=== PATIENT | male | born 1960 | race Caucasian/White ===

== ENCOUNTER 2017-12-20 19:56 | Emergency (ER) | payer OTHER, SELFPAY ==
[2017-12-20 19:57] VITALS: BP 158/98; PULSE 75; RESP 26; TEMP 36.6; O2SAT 94; BMI 32.0
--- NOTE | 2017-12-20 20:05 | EKG12_ITS ---
Test Reason : CP Blood Pressure : / mmHG Vent. Rate : 069 BPM Atrial Rate : 069 BPM P-R Int : 174 ms QRS Dur : 096 ms QT Int : 406 ms P-R-T Axes : 033 021 016 degrees QTc Int : 435 ms Normal sinus rhythm Normal ECG Confirmed by MARCELLO TELLO ([id number]), story editor JESSY DAVIS ([id number]) on 12/24/2017 1:43:01 PM Referred By: ANU Confirmed By:MARCELLO TELLO
[2017-12-20 20:06] VITALS: O2SAT 98
--- NOTE | 2017-12-20 20:10 | RAD_ITS ---
STUDY: X-RAY CHEST REASON FOR EXAM: Male, 57 years old. Chest pain TECHNIQUE: AP portable COMPARISON: November 08, 2007 FINDINGS: There is diminished inspiratory effort and mild prominence of the markings in the lower lobes. There is no demonstrated pleural abnormality. Heart is upper normal size. Normal mediastinum and diana. Normal visualized pulmonary arteries. Normal visualized aortic arch and descending thoracic aorta. Normal visualized thoracic spine. Normal visualized ribs, clavicles, and shoulders. There is no demonstrated abnormality of the visualized soft tissue structures of the upper abdomen. RAD/Chest 1 View (Portable) IMPRESSION: Diminished inspiratory effort and mild prominence of the markings in the lower lobes. No gross infiltration or pulmonary edema Electronically Signed: Jonny Whitfield MD at 20:37 EST , Service support ,
[2017-12-20 20:20] LABS: Absolute Lymphocyte Count 2.72 X10^3/ul (0.83-4.51); Absolute Neutrophil Count 5.4 X10^3/uL (2.0-7.7); Basophil# 0.05 X10^3/uL; Basophil% 0.5 % (0-1); Eosinophil# 0.29 X10^3/uL; Eosinophils% 3.1 % (0-5); Hematocrit 42.3 % (40-54); Hemoglobin 14.2 g/dl (13.0-16.5); Lymphocyte # 2.72 X10^3/ul (4.0); Lymphocyte % 29.1 % (19-41); Mean Corp Hgb Conc 33.6 g/gl (32-36); Mean Corpuscular Hgb 29.3 pg (27.0-32.0); Mean Corpuscular Volume 87.2 fL (80-94); Mean Platelet Vol. 10.2 fl (6.2-12.0); Monocyte% 9.6 % (0-10); Neutrophil # 5.37 X10^3/uL (2.7-7.7); Neutrophil % 57.6 % (47-70); Platelet Count 285 K/mm3 (150-450); RBC Distribution Width SD 41.6 fl (35.1-43.9); Red Blood Count 4.85 M/mm3 (4.6-6.2); White Blood Count 9.3 K/mm3 (4.4-11.0)
[2017-12-20 20:21] LABS: POSITIVE COUNT NO; POSITIVE DIFFERENTIAL NO; POSITIVE MORPHOLOGY NO
[2017-12-20 20:23] VITALS: O2SAT 98
[2017-12-20] MEDS: Aspirin 81 MG TAB.CHEW 324 MG PO (20:27)
--- NOTE | 2017-12-20 20:33 | CT_ITS ---
STUDY: CTA CHEST REASON FOR EXAM: Male, 57 years old. Chest pain RADIATION DOSAGE (If Supplied By Facility): CTDIvol = ( 15.98 ) mGy, DLP = ( 713.14 ) mGycm TECHNIQUE: The examination was performed with the intravenous administration of 100ML ml of Isovue 370 contrast material. Post-processing of the angiographic images was performed, with multiplanar reformation and 3D reconstruction. Individualized dose optimization techniques were used for this CT. COMPARISON: None. FINDINGS: Normal enhancement of the main pulmonary artery and right and left pulmonary arteries. Normal enhancement of the bilateral peripheral pulmonary arteries. There is no demonstrated pulmonary embolism. Normal thoracic aorta and visualized great vessels. There is no demonstrated aortic dissection. The heart appears mildly enlarged and there is coronary artery calcification. Normal mediastinum. Normal hilar regions. Normal visualized trachea and bronchi. The lungs are well expanded. There is mild interstitial thickening. There is minor atelectasis within the dependent portion of the lungs. There is no focal infiltration or pulmonary nodule.. Normal pleura. Normal chest wall structures. Dorsal spine demonstrates moderate spondylosis Postop changes status post cholecystectomy CT/CTA Chest W/WO Contrast IMPRESSION: Minor interstitial thickening and atelectasis within the dependent portion of the lungs. No evidence for pulmonary embolus Electronically Signed: Jonny Whitfield MD at 21:27 EST , Service support ,
[2017-12-20 20:37] LABS: BUN 15 mg/dL (7-18); Glucose 89 mg/dL (74-106)
[2017-12-20 20:38] LABS: Anion Gap 8 (5-15); BUN/Creat Ratio 18.8 RATIO (10-20); Chloride 105 mmol/L (98-107); EST Glomerular Filtration Rate 106 mL/min (>60); Est Glom Filt Rate - Afr Amer 129 mL/min (>60); Potassium 3.9 mmol/L (3.5-5.1); Sodium Level 140 mmol/L (136-145)
[2017-12-20 21:05] VITALS: BP 143/86; PULSE 60; RESP 20; O2SAT 99
--- NOTE | 2017-12-20 21:06 | ED.VISSUMM ---
- ER Visit Summary Date of Service: 12/20/17 Chief Complaint: [] Burning chest pain into his back History of Present Illness: The patient is a 57 M [] he reports that this morning he began having burning chest pain to his back and left shoulder it persisted he came in for evaluation by he has had no orthopnea PND no diaphoresis is able to eat and drink without difficulty he does not have history of NH PE or DVT he reports 10 years ago he required admission for chest pain had a cardiac cath at [facility] that showed no signs of CAD, this is the first significant episode of chest pain he has had since then he indicates otherwise he is healthy he has some nonspecific stomach elements but otherwise he is very healthy his review of systems are negative is resting cupping the bed no distress Physical Examination: [] His vitals are within normal range heads normal lungs clear heart tones normal abdomen soft nontender upper lower extremities unremarkable pulses symmetric bilaterally the back is unremarkable lower extremities show no sinus clubbing or edema or signs of DVT Test Results: [] Emergency Department Course and Treatment: [] EKG showed a sinus rhythm nothing acute given his complaints screening labs CTA The patient's labs CTA are all generally unremarkable see those reports no signs of PE or dissection reevaluation is resting cupping the bed he has no complaints I discussed admission with him for further evaluation of the chest pain given his age his complaints he understand the risk of unspecified cardiac disease or other conditions and sudden however he is awake alert has capacity and has refused admission stating prefers outpatient management, he was able to explain my concerns in his own words back to me with a read back and again he has capacity to make this decision family is in the room with him he does agree to take 2 baby aspirin a day follow-up with his doctors tomorrow return for change in symptoms Treatment Plan: [] Disposition: [] Home stable admission Impression: [] Pain etiology unclear resolved This note was generated with [employer] dictation software. It may contain incorrect words, spelling, and punctuation that were not noted in review of the chart prior to signing ED Disposition - Plan for ED Patient: Chief Complaint: Chest Pain Referrals: Kike Aguiar [Primary Care Provider] -
--- NOTE | 2017-12-20 22:07 | ED.DEP ---
ED Disposition - Plan for ED Patient: Chief Complaint: Chest Pain Instructions: ED Chest Pain Atypical Unkn Cause Referrals: Kike Aguiar [Primary Care Provider] -
[2017-12-20 22:32] VITALS: BP 133/79; PULSE 63; RESP 14; O2SAT 98
[2017-12-20 22:59] VITALS: BP 133/79; PULSE 62; RESP 16; O2SAT 98
--- NOTE | 2017-12-20 23:00 | ED.RN ---
PT GIVEN WRITTEN AND VERBAL DISCHARGE INSTRUCTIONS AND VERBALIZES UNDERSTANDING. PT IV D/C AND COVERED WITH 2X2 GAUZE DRESSING. MINIMAL BLEEDING NOTES. PT DRESSES SELF AND IS AMBULATORY HOME WITH . PT ENCOURAGED TO RETURN FOR ANY NEW OR WORSENING SX.
== END 2017-12-20 23:03 | disposition home or self-care (01) ==
PROVIDERS: Emergency Provider Emergency Medicine; Family Provider Family Medicine; PCP Family Medicine
DX: R07.89 Other chest pain (principal)
CPT/HCPCS: 71045; 71275; 80048; 84484; 85025; 93005; 96360; 99285; J7040; Q9967

== ENCOUNTER 2021-05-04 22:07 | Emergency (ER) | payer OTHER, SELFPAY ==
[2021-05-04 22:08] VITALS: BP 169/105; PULSE 73; RESP 15; TEMP 36.2; O2SAT 95; BMI 34.7
--- NOTE | 2021-05-04 22:47 | CT_ITS ---
STUDY: CT ABDOMEN AND PELVIS WITH CONTRAST REASON FOR EXAM: Male, 61 years old. abdominal pain RADIATION DOSAGE (If Supplied By Facility): CTDIvol = ( 22.61 ) mGy, DLP = ( 2208.57 ) mGycm TECHNIQUE: Transaxial images were obtained from the dome of the diaphragm to the symphysis pubis without oral contrast. IV 100mL Isovue-370 was administered. Sagittal and coronal images were reconstructed. Individualized dose optimization techniques were used for this CT. COMPARISON: None. FINDINGS: The visualized lung bases are unremarkable. The visualized portions of the heart are within normal limits. Normal liver. There are surgical clips in the gallbladder fossa consistent with a prior cholecystectomy. Normal spleen. Normal pancreas. Normal bilateral adrenal glands. Normal right kidney. Left sided peripelvic cysts, otherwise unremarkable left kidney. Normal visualized stomach. Normal small intestine. Normal colon. There is non-visualization of the appendix. In the central mesentery, there is very mild mesenteric haziness which is nonspecific. Normal abdominal aorta. Normal inferior vena cava. Normal retroperitoneum. Normal urinary bladder. Normal visualized prostate gland. Normal abdominal wall. Normal osseous structures. CT/Abdomen/Pelvis W IV Cont ONLY IMPRESSION: Status post cholecystectomy. Subtle haziness in the central mesentery, nonspecific finding. Unsure if this is related to acute findings. Status post cholecystectomy. Remainder is within normal limits. Electronically Signed: Trev Hoang DO at 0:23 EDT Tel , Service support ,
--- NOTE | 2021-05-04 22:47 | EX.ED.DYSGE1 ---
HPI History of Present Illness Chief Complaint: Abd Pain Informant: patient Narrative Narrative: 61-year-old [facility] male presents the emergency room with right-sided abdominal pain. He states that for the past 3 days he has had this pain. Originally described as more generalized but now mostly on the right middle and lower side. States that sometimes it will intensify will cause him to catch himself. He notes some associated nausea. He denies any anorexia. No change in bowel habits. No fevers. He states he has had several hernia repairs and a cholecystectomy. Pain is not worse with movement. He feels slight radiation to the right flank. He denies history of ureterolithiasis. PFSH PFSH no medical history Home Medications NK 12/20/17 [History Last Taken Unknown] Allergy/AdvReac Type Severity Reaction Status Date / Time No Known Allergies Allergy Verified 12/20/17 19:56 Surgical History H/O hernia repair History of cholecystectomy Social History (Updated 05/04/21 @ 22:[address] Rob Villagran, DO) Smoking Status: Former smoker substance use type: does not use ROS ROS ED Constitutional Constitutional ED: Denies chills or weight loss Eyes Eyes: Denies change in vision or diplopia ENT ENT ED: Denies ear pain, rhinorrhea or sore throat Cardiovascular Cardiovascular: Denies chest pain, orthopnea, palpitations or racing heartbeat Respiratory/Chest Respiratory/Chest: Denies cough, dyspnea or orthopnea Gastrointestinal Gastrointestinal: Reports abdominal pain and nausea; Denies diarrhea or vomiting Genitourinary Genitourinary ED: Denies dysuria, hematuria or urinary frequency Musculoskeletal Musculoskeletal: Denies arthralgias or myalgias Integumentary Denies abscess or rash Neurologic Neurologic: Denies headache(s) or weakness Psychiatric Psychiatric: Denies anxiety, depression, suicidal ideation or suicidal thoughts Endocrine Endocrinology: Denies polydipsia, polyphagia or polyuria Allergic/Immunologic Allergic/Immunologic ED: Denies mouth swelling, tongue swelling or urticaria EXAM Physical Exam Const Vital Signs: 05/04/21 22:08 Temperature 97.1 F L Temperature Source Temporal Pulse Rate 73 Respiratory Rate 15 Blood Pressure 169/105 H Blood Pressure Mean 126 Pulse Ox 95 Oxygen Delivery Method Room Air Positive well nourished and well developed General Appearance ED: well developed HEENT Reports normocephalic, head/scalp atraumatic and moist mucous membranes Eyes PERRL and EOMs intact bilaterally Neck no lymphadenopathy, supple and no JVD Resp normal respiratory effort and clear to auscultation bilaterally Cardio regular rate, regular rhythm and no murmurs GI Palpation: soft and tender; Negative for guarding or rebound tenderness present Back/Spine no CVA tenderness and normal ROM Extremity normal to inspection General Extremety ED: Negative for edema General Extremity: Negative for edema Neuro oriented x3 and CN's II-XII intact bilaterally Sensorium / Orientation: alert Motor Exam: strength 5/5 throughout Psych mental status grossly normal Mood & Affect: Negative for depressed or tearful Skin no rashes or lesions noted and no wounds MDM MDM MDM Narrative Medical decision making narrative: Blood work was normal white count 9.3. Urinalysis normal. CT the abdomen pelvis demonstrated some nonspecific haziness in the mesentery. No obvious cause for the patient's pain. Patient received Toradol Zofran. At this point I think the patient is safe for discharge. He was given return instructions and he notes understanding Lab Data Attestation: I reviewed the patient's lab results. Labs: Laboratory Results - last 24 hr 05/04/21 05/04/21 05/05/21 23:08 23:08 00:10 WBC 9.3 RBC 4.48 L Hgb 13.1 Hct 39.5 L MCV 88.2 MCH 29.2 MCHC 33.2 RDW Std Deviation 41.7 RDW Coeff of Antonio 12.9 Plt Count 293 MPV 10.4 Immature Gran % (Auto) 0.200 Neut % (Auto) 67.7 Lymph % (Auto) 18.9 L [place] % (Auto) 9.3 Eos % (Auto) 2.9 Baso % (Auto) 1.0 Absolute Neuts (auto) 6.3 Absolute Lymphs (auto) 1.75 Nucleated RBC % 0 Sodium 138 Potassium 4.0 Chloride 108 H Carbon Dioxide 25.0 Anion Gap 5 BUN 17 Creatinine 0.87 Estim Creat Clear Calc 90.29 Est GFR (MDRD) Af Amer 115 Est GFR (MDRD) Non-Af 95 BUN/Creatinine Ratio 19.5 Glucose 113 H Calcium 8.5 Total Bilirubin 0.50 AST 17 ALT 22 Alkaline Phosphatase 49 Total Protein 7.4 Albumin 3.4 Globulin 4.0 Albumin/Globulin Ratio 0.8 L Lipase 78 Urine Color Yellow Urine Clarity Clear Urine pH 7.0 Ur Specific [place] 1.005 Urine Protein Negative Urine Glucose (UA) Normal Urine Ketones Negative Urine Occult Blood Negative Urine Nitrite Negative Urine Bilirubin Negative Urine Urobilinogen Normal Ur Leukocyte Esterase Negative Urine RBC 0 SEEN Urine WBC 0 SEEN Ur Squamous Epith Cells 0 SEEN Urine Bacteria 0 SEEN Urine Mucus 0 SEEN Radiography Diagnostic Testing: Radiology Impression Abdomen/Pelvis CT 05/04/21 22:47 IMPRESSION: Status post cholecystectomy. Subtle haziness in the central mesentery, nonspecific finding. Unsure if this is related to acute findings. Status post cholecystectomy. Remainder is within normal limits. Electronically Signed: Trev Hoang DO at 0:23 EDT Tel , Service support , Discharge Plan Triage Chief Complaint: Abd Pain ED Provider: Rob Villagran Dx/Rx/DC Orders Clinical Impression: Abdominal pain Instructions: ED Abdominal Pain Excl Appendx Male Prescriptions: No Action NK RF: 0 Primary Care Provider: Kike Aguiar Referrals: Kike Aguiar MD [Primary Care Provider] - 3-5 Days if not improving Disposition Disposition: Home, Self Care
[2021-05-04] MEDS: Ondansetron 4 MG/2 ML Vial IV (23:02)
[2021-05-04] MEDS: Ketorolac 30 MG/ML Syringe IV (23:03)
[2021-05-04 23:30] LABS: Absolute Lymphocyte Count 1.75 X10^3/uL (0.83-4.51); Absolute Neutrophil Count 6.3 X10^3/uL (2.0-7.7); Basophil# 0.09 X10^3/uL; Eosinophil# 0.27 X10^3/uL; Eosinophils% 2.9 % (0-5); Hematocrit 39.5 % (40-54); Hemoglobin 13.1 g/dL (13.0-16.5); Lymphocyte # 1.75 X10^3/ul (0.83-4.51); Lymphocyte % 18.9 % (19-41); Mean Corp Hgb Conc 33.2 g/dL (32-36); Mean Corpuscular Hgb 29.2 pg (27.0-32.0); Mean Corpuscular Volume 88.2 fL (80-94); Mean Platelet Vol. 10.4 fl (6.2-12.0); Monocyte# 0.86 X10^3/uL; Monocyte% 9.3 % (0-10); NRBC Flagged by Analyzer 0 % (0-5); Neutrophil # 6.26 X10^3/uL (2.7-7.7); Neutrophil % 67.7 % (47-70); Platelet Count 293 K/mm3 (150-450); RBC Distribution Width CV 12.9 % (11.6-14.6); RBC Distribution Width SD 41.7 fl (35.1-43.9); Red Blood Count 4.48 M/mm3 (4.6-6.2); White Blood Count 9.3 K/mm3 (4.4-11.0)
[2021-05-04 23:41] LABS: ALB/GLOB Ratio 0.8 RATIO (0.9-2.4); AST(SGOT) 17 U/L (15-37); Alanine Aminotransfer ALT/SGPT 22 U/L (16-61); Albumin, Serum 3.4 g/dL (3.2-5.0); Alkaline Phosphatase 49 U/L (45-117); Anion Gap 5 (5-15); BUN 17 mg/dL (7-18); BUN/Creat Ratio 19.5 RATIO (10-20); Calcium,Total 8.5 mg/dL (8.5-10.1); Chloride 108 mmol/L (98-107); Creatinine, Serum 0.87 mg/dL (0.70-1.30); EST Glomerular Filtration Rate 95 mL/min (>60); Est Glom Filt Rate - Afr Amer 115 mL/min (>60); Estimated Creatinine Clearance 90.29 ml/min; Glucose 113 mg/dL (74-106); Lipase 78 U/L (73-393); Protein, Total 7.4 g/dL (6.4-8.2); Sodium Level 138 mmol/L (136-145)
[2021-05-05 00:17] LABS: Bacteria 0 SEEN /hpf (None Seen); Mucous, Urine 0 SEEN /hpf (<or=2+); Red Blood Cells-Urine 0 SEEN /hpf (0-5); Squamous Epithelial Cells - UA 0 SEEN /hpf (0-5); White Blood Cells 0 SEEN /hpf (0-5)
[2021-05-05 00:18] LABS: Color, Urine Yellow (Yellow); Glucose, Dipstick Normal (Normal); Ketone-Dipstick Negative (Negative); Leukocyte Esterase-Dipstick Negative /ul (Negative); Nitrite-Dipstick Negative (Negative); Occult Blood-Urine Negative /ul (Negative); Protein-Dipstick Negative (Negative); Specific Gravity, Urine 1.005 (1.002-1.030); Urine Bilirubin Dipstick Negative (Negative); Urine Clarity Clear (Clear); Urine Urobilinogen Normal (Normal)
[2021-05-05 00:44] VITALS: BP 164/90; PULSE 88; RESP 18; O2SAT 99
== END 2021-05-05 00:45 | disposition home or self-care (01) ==
PROVIDERS: Emergency Provider Emergency Medicine; PCP Family Medicine
DX: R10.9 Unspecified abdominal pain (principal); R11.0 Nausea; Z90.49 Acquired absence of other specified parts of digestive tract; Z87.891 Personal history of nicotine dependence
CPT/HCPCS: 74177; 80053; 81001; 83690; 85025; 96374; 96375; 99284; Q9967; A4216; J2405

== ENCOUNTER 2021-06-09 17:22 | Inpatient (IN) | payer OTHER, SELFPAY ==
[2021-06-09] VITALS (7 sets, daily range): BP systolic 116–140; BP diastolic 60–70; PULSE 84–95; RESP 16–18; TEMP 36.4–37.1; O2SAT 92–97; BMI 33.2; BMI 33.4
[2021-06-09 18:10] LABS: Absolute Lymphocyte Count 1.58 X10^3/uL (0.83-4.51); Basophil# 0.01 X10^3/uL; Basophil% 0.1 % (0-1); Hematocrit 21.9 % (40-54); Hemoglobin 6.7 g/dL (13.0-16.5); Lymphocyte # 1.58 X10^3/ul (0.83-4.51); Lymphocyte % 17.6 % (19-41); Mean Corp Hgb Conc 30.6 g/dL (32-36); Mean Corpuscular Hgb 37.2 pg (27.0-32.0); Mean Corpuscular Volume 121.7 fL (80-94); Mean Platelet Vol. 10.1 fl (6.2-12.0); Monocyte# 0.35 X10^3/uL; Monocyte% 3.9 % (0-10); NRBC Flagged by Analyzer 0.4 % (0-5); Neutrophil # 6.97 X10^3/uL (2.7-7.7); Neutrophil % 77.8 % (47-70); POSITIVE MORPHOLOGY YES; Platelet Count 431 K/mm3 (150-450); RBC Distribution Width CV 15.3 % (11.6-14.6); RBC Distribution Width SD 68.2 fl (35.1-43.9)
[2021-06-09 18:14] LABS: Differential Indicated SCAN CRITERIA MET
[2021-06-09 18:19] LABS: Anion Gap 5 (5-15); BUN 16 mg/dL (7-18); BUN/Creat Ratio 18.6 RATIO (10-20); Calcium,Total 8.3 mg/dL (8.5-10.1); Chloride 106 mmol/L (98-107); Creatinine, Serum 0.86 mg/dL (0.70-1.30); EST Glomerular Filtration Rate 97 mL/min (>60); Est Glom Filt Rate - Afr Amer 117 mL/min (>60); Estimated Creatinine Clearance 91.34 ml/min; Glucose 141 mg/dL (74-106); Potassium 3.7 mmol/L (3.5-5.1); Sodium Level 137 mmol/L (136-145)
[2021-06-09 18:37] LABS: Differential Comment SCANNED
--- NOTE | 2021-06-09 19:22 | CT_ITS ---
STUDY: CT ABDOMEN AND PELVIS WITH CONTRAST REASON FOR EXAM: Male, 61 years old. abdominal pain RADIATION DOSAGE (If Supplied By Facility): CTDIvol = ( 22.17 ) mGy, DLP = ( 1105.98 ) mGycm TECHNIQUE: Transaxial images were obtained from the dome of the diaphragm to the symphysis pubis without oral contrast. IV 100mL Isovue-300 was administered. Sagittal and coronal images were reconstructed. Individualized dose optimization techniques were used for this CT. COMPARISON: 05/04/2021. FINDINGS: Lung bases are clear. Heart size is normal. Liver, spleen and pancreas unremarkable. The gallbladder is surgically absent. The adrenal glands are normal. 4.3 cm left renal cyst. The kidneys are otherwise unremarkable. No stones or hydronephrosis. The aorta is normal in caliber. There is no free fluid, free air or organized collection. No bowel obstruction or inflammatory change. Normal retrocecal appendix. Urinary bladder is unremarkable. Small fat-containing umbilical hernia. Normal osseous structures. CT/Abdomen/Pelvis W IV Cont ONLY IMPRESSION: 1. No acute findings. 2. Left renal cyst. Electronically Signed: Ana Mata MD at 20:26 EDT Tel , Service support ,
[2021-06-09 20:03] LABS: AST(SGOT) 18 U/L (15-37); Alanine Aminotransfer ALT/SGPT 23 U/L (16-61); Albumin, Serum 3.2 g/dL (3.2-5.0); Alkaline Phosphatase 54 U/L (45-117); Globulin 3.3 g/dL (2.2-4.2); Protein, Total 6.5 g/dL (6.4-8.2)
[2021-06-09 20:05] LABS: Lipase 74 U/L (73-393)
[2021-06-09] MEDS: 0.9% Normal Saline 1,000 ML 1000 ML IV (20:09)
[2021-06-09 20:21] LABS: Bacteria 0 SEEN /hpf (None Seen); Mucous, Urine 0 SEEN /hpf (<or=2+); Red Blood Cells-Urine 0 SEEN /hpf (0-5); White Blood Cells 0 SEEN /hpf (0-5)
[2021-06-09 20:31] LABS: Color, Urine Yellow (Yellow); Glucose, Dipstick Normal (Normal); Ketone-Dipstick Negative (Negative); Leukocyte Esterase-Dipstick Negative /ul (Negative); Nitrite-Dipstick Negative (Negative); Occult Blood-Urine Negative /ul (Negative); Protein-Dipstick Negative (Negative); Specific Gravity, Urine 1.015 (1.002-1.030); Urine Bilirubin Dipstick Negative (Negative); Urine Clarity Sl. Cloudy (Clear); Urine Urobilinogen Normal (Normal)
[2021-06-09 20:41] LABS: Squamous Epithelial Cells - UA 0-5 SEEN /hpf (0-5)
[2021-06-09 20:42] LABS: Amorphous Sediment 1+ URATE
[2021-06-09] MEDS: DiphenhydrAMINE 50 MG/ML Syringe 25 MG IV (21:02)
[2021-06-09] MEDS: Dicyclomine 20 MG/2 ML Vial IM (21:21)
--- NOTE | 2021-06-09 22:01 | EDS_ITS ---
HPI History of Present Illness Chief Complaint: Abd Pain Narrative Narrative: Patient presents with abdominal pain, nausea, he has had a 15 pound weight loss in the past few weeks and feels generally weak. No fever or chills, he has chronic anemia which was undiagnosed however he has not had a recent colonoscopy. [facility] Medical History (Updated 06/09/21 @ 22:[address] Josiah Echols MD) Diverticulosis Home Medications NK 12/20/17 [History Last Taken Unknown] Allergy/AdvReac Type Severity Reaction Status Date / Time No Known Allergies Allergy Verified 06/09/21 17:25 Family History (Updated 06/09/21 @ 22:08 by Carmencita Jason NP-C) Brother Cancer Hypertension Mother Hypertension Diabetes Surgical History H/O hernia repair History of cholecystectomy Social History (Updated 05/04/21 @ 22:[address] Rob Villagran, DO) Smoking Status: Former smoker alcohol intake: never substance use type: does not use ROS ROS ED ROS Narrative Past medical history: Reviewed Medications: Reviewed Social history: Noncontributory Review of systems: All systems negative except as indicated General: No fever Eyes: No visual changes ENT: No upper airway congestion, normal voice Neck: No neck pain Cardiovascular: No chest pain Respiratory: No shortness of breath or cough Gastrointestinal: Abdominal pain as in HPI Genitourinary: No dysuria Musculoskeletal: Denies myalgias no difficulty with ambulation Skin: No rash Neurological: No memory loss, confusion or any focal weakness Psych: No recent behavioral changes Hematologic: No easy bleeding or easy bruising EXAM Physical Exam Narrative Exam Narrative: Physical exam General: Well nourished, Well developed, No Acute Distress Head: Normocephalic, Atraumatic Eyes: Conjunctiva slightly pale ENT: Moist mucous membranes Neck: Supple, Nontender, No lymphadenopathy Cardiovascular: Regular rate, Regular rhythm Respiratory: No distress, CTA bilaterally Abdomen: Soft, diffuse tenderness throughout no guarding or rebound. Back: Nontender, Normal Inspection. Negative for: CVA tenderness Extremities: Nontender, No edema Skin: Diffuse urticarial rash on his body. It blanches. Neurological: Alert, Normal Strength, Normal Sensation Psychological: Normal affect Const Vital Signs: 06/09/21 17:23 06/09/21 18:22 06/09/21 20:09 Temperature 98.7 F Temperature Source Temporal Pulse Rate 94 95 92 Respiratory Rate 18 18 18 Blood Pressure 134/67 H 140/69 H 136/69 H Blood Pressure Mean 89 92 91 Pulse Ox 97 96 96 Oxygen Delivery Method Room Air Room Air Room Air MDM MDM MDM Narrative Medical decision making narrative: Patient was given Pepcid for the epigastric pain and Benadryl for the itchy rash. He was also given Bentyl, he is slightly improved. He is found to be anemic requiring transfusion. I will admit him, his CT is unremarkable by my worry is about possible colon cancer, he can get an outpatient work-up for that but I do want to make sure his anemia is resolved before that. Lab Data Labs: Laboratory Results - last 24 hr 06/09/21 06/09/21 06/09/21 17:54 17:54 17:54 WBC 9.0 RBC 1.80 L Hgb 6.7 L Hct 21.9 L MCV 121.7 H MCH 37.2 H MCHC 30.6 L RDW Std Deviation 68.2 H RDW Coeff of Antonio 15.3 H Plt Count 431 MPV 10.1 Immature Gran % (Auto) 0.600 Neut % (Auto) 77.8 H Lymph % (Auto) 17.6 L [place] % (Auto) 3.9 Eos % (Auto) 0.0 Baso % (Auto) 0.1 Absolute Neuts (auto) 7.0 Absolute Lymphs (auto) 1.58 Nucleated RBC % 0.4 Differential Comment SCANNED Sodium 137 Potassium 3.7 Chloride 106 Carbon Dioxide 26.0 Anion Gap 5 BUN 16 Creatinine 0.86 Estim Creat Clear Calc 91.34 Est GFR (MDRD) Af Amer 117 Est GFR (MDRD) Non-Af 97 BUN/Creatinine Ratio 18.6 Glucose 141 H Calcium 8.3 L Total Bilirubin 1.80 H AST 18 ALT 23 Alkaline Phosphatase 54 Total Protein 6.5 Albumin 3.2 Globulin 3.3 Albumin/Globulin Ratio 1.0 Lipase 74 Urine Color Urine Clarity Urine pH Ur Specific [place] Urine Protein Urine Glucose (UA) Urine Ketones Urine Occult Blood Urine Nitrite Urine Bilirubin Urine Urobilinogen Ur Leukocyte Esterase Urine RBC Urine WBC Ur Squamous Epith Cells Amorphous Sediment Urine Bacteria Urine Mucus Crossmatch 06/09/21 06/09/21 19:35 21:15 WBC RBC Hgb Hct MCV MCH MCHC RDW Std Deviation RDW Coeff of Antonio Plt Count MPV Immature Gran % (Auto) Neut % (Auto) Lymph % (Auto) [place] % (Auto) Eos % (Auto) Baso % (Auto) Absolute Neuts (auto) Absolute Lymphs (auto) Nucleated RBC % Differential Comment Sodium Potassium Chloride Carbon Dioxide Anion Gap BUN Creatinine Estim Creat Clear Calc Est GFR (MDRD) Af Amer Est GFR (MDRD) Non-Af BUN/Creatinine Ratio Glucose Calcium Total Bilirubin AST ALT Alkaline Phosphatase Total Protein Albumin Globulin Albumin/Globulin Ratio Lipase Urine Color Yellow Urine Clarity Sl. Cloudy Urine pH 6.0 Ur Specific [place] 1.015 Urine Protein Negative Urine Glucose (UA) Normal Urine Ketones Negative Urine Occult Blood Negative Urine Nitrite Negative Urine Bilirubin Negative Urine Urobilinogen Normal Ur Leukocyte Esterase Negative Urine RBC 0 SEEN Urine WBC 0 SEEN Ur Squamous Epith Cells 0-5 SEEN Amorphous Sediment 1+ URATE Urine Bacteria 0 SEEN Urine Mucus 0 SEEN Crossmatch See Detail Radiography Diagnostic Testing: Radiology Impression Abdomen/Pelvis CT 06/09/21 19:22 IMPRESSION: 1. No acute findings. 2. Left renal cyst. Electronically Signed: Ana Mata MD at 20:26 EDT Tel , Service support , Discharge Plan Triage Chief Complaint: Abd Pain ED Provider: Josiah Echols Dx/Rx/DC Orders Clinical Impression: Abdominal pain, Anemia Prescriptions: No Action NK RF: 0 Primary Care Provider: Kike Aguiar Referrals: Kike Aguiar MD [Primary Care Provider] - 2 Days Disposition Disposition: Acute Care Hospital [facility]
--- NOTE | 2021-06-09 22:02 | HP.PCM_ITS ---
Documented by User: AMARI Ivory 06/10/21 00:15 HPI - General General Date of Admission: 06/09/21 Date of Service: 06/09/21 Chief Complaint: Abdominal pain HPI Narrative MARCELLO ELLSWORTH, is a 61 M who presents with complaints of generalized abdominal pain 8 out of 10 prior to medications and general fatigue. Patient also reports that he has lost a considerable amount of weight over the past few weeks. Patient states that he has been struggling with anemia of unknown origin and this is left him feeling tired. [facility] and states he could not find anything to explain the anemia. Patient currently denies fever, chills, shortness of breath, chest pain, cough, nausea, vomiting, constipation, diarrhea. [facility] Medical History Diverticulosis Home Medications NK 12/20/17 [History Last Taken Unknown] Allergy/AdvReac Type Severity Reaction Status Date / Time No Known Allergies Allergy Verified 06/09/21 17:25 Family History (Updated 06/09/21 @ 22:09 by AMARI Ivory) Brother Cancer Hypertension Mother Hypertension Diabetes Surgical History H/O hernia repair History of cholecystectomy Social History (Updated 06/09/21 @ 22:09 by AMY IvoryC) Smoking Status: Former smoker alcohol intake: never substance use type: does not use ROS Constitutional Constitutional: Reports fatigue and weight loss; Denies anorexia, chills, fever(s) or weakness Cardiovascular Cardiovascular: Denies chest pain, edema or palpitations Respiratory/Chest Respiratory/Chest: Denies cough, shortness of breath at rest or shortness of breath with exertion Gastrointestinal Gastrointestinal: Reports abdominal pain and vomiting; Denies constipation, diarrhea or nausea Genitourinary Genitourinary: Denies dysuria Musculoskeletal Musculoskeletal: Denies back pain, extremity pain, joint pain or joint stiffness Integumentary Integumentary: Denies dry skin Neurologic Neurologic: Denies abnormal gait, abnormal speech, confusion or dizziness Psychiatric Psychiatric: Denies anxiety or depression Endocrine Endocrinology: Denies change in body appearance Hematologic/Lymphatic Hematologic/Lymphatic: Reports anemia Vital Signs Vital Signs Vital Signs: 06/09/21 17:23 06/09/21 18:22 06/09/21 20:09 Temperature 98.7 F Temperature Source Temporal Pulse Rate 94 95 92 Respiratory Rate 18 18 18 Blood Pressure 134/67 H 140/69 H 136/69 H Blood Pressure Mean 89 92 91 Pulse Ox 97 96 96 Oxygen Delivery Method Room Air Room Air Room Air Weight Weight: 225 lb Body Mass Index (BMI) 33.2 Physical Exam Const alert, oriented x3 and no apparent distress General Appearance: cooperative HEENT normocephalic and head/scalp atraumatic Eyes conjunctivae normal and no scleral icterus Neck supple and no JVD General: trachea midline Resp normal respiratory effort, normal air movement and clear to auscultation bilaterally Cardio regular rate, regular rhythm, S1 normal heart sound and S2 normal heart sound GI normal to inspection, nondistended, normoactive bowel sounds and soft to palpation Palpation: tender other (Generalized) Extremity normal capillary refill and no clubbing, cyanosis or edema General Extremity: no tenderness to palpation of joints or extremities Skin General Skin Exam: no breakdown and turgor normal Lesions: no lesions Rashes: no rashes Neuro no focal motor deficits and no sensory deficits noted Speech: speech normal Motor Exam: Negative for general weakness Psych thought process normal, cooperative and affect normal Appearance: appropriate Results Lab / Micro Data Result Diagrams: 06/09/21 20:22 06/09/21 17:54 Labs: Laboratory Results - last 24 hr 06/09/21 17:54: WBC 9.0, RBC 1.80 L, Hgb 6.7 L, Hct 21.9 L, MCV 121.7 H, MCH 37.2 H, MCHC 30.6 L, RDW Std Deviation 68.2 H, RDW Coeff of Antonio 15.3 H, Plt Count 431, MPV 10.1, Immature Gran % (Auto) 0.600, Neut % (Auto) 77.8 H, Lymph % (Auto) 17.6 L, [place] % (Auto) 3.9, Eos % (Auto) 0.0, Baso % (Auto) 0.1, Absolute Neuts (auto) 7.0, Absolute Lymphs (auto) 1.58, Nucleated RBC % 0.4, Differential Comment SCANNED 06/09/21 17:54: Sodium 137, Potassium 3.7, Chloride 106, Carbon Dioxide 26.0, Anion Gap 5, BUN 16, Creatinine 0.86, Estim Creat Clear Calc 91.34, Est GFR (MDRD) Af Amer 117, Est GFR (MDRD) Non-Af 97, BUN/Creatinine Ratio 18.6, Glucose 141 H, Calcium 8.3 L, Total Bilirubin 1.80 H, AST 18, ALT 23, Alkaline Phospha tase 54, Total Protein 6.5, Albumin 3.2, Globulin 3.3, Albumin/Globulin Ratio 1.0 06/09/21 17:54: Lipase 74 06/09/21 19:35: Urine Color Yellow, Urine Clarity Sl. Cloudy, Urine pH 6.0, Ur Specific [place] 1.015, Urine Protein Negative, Urine Glucose (UA) Normal, Urine Ketones Negative, Urine Occult Blood Negative, Urine Nitrite Negative, Urine Bilirubin Negative, Urine Urobilinogen Normal, Ur Leukocyte Esterase Negative, Urine RBC 0 SEEN, Urine WBC 0 SEEN, Ur Squamous Epith Cells 0-5 SEEN, Amorphous Sediment 1+ URATE, Urine Bacteria 0 SEEN, Urine Mucus 0 SEEN 06/09/21 21:15: Crossmatch See Detail Micro: Microbiology 06/09/21 20:43 Stool Stool Occult Blood (TOMEKA) - Final Radiology Impression Abdomen/Pelvis CT 06/09/21 19:22 IMPRESSION: 1. No acute findings. 2. Left renal cyst. Electronically Signed: Ana Mata MD at 20:26 EDT Tel , Service support , Assessment & Plan Assessment/Plan (1) Anemia: QUALIFIERS: Anemia type: unspecified type Qualified Code(s): D64.9 - Anemia, unspecified PLAN: 1. Anemia -Admit to PCU for cardiac monitoring -2 units PRBC ordered in ER, initial hemoglobin 6.7 -CBC and CMP ordered daily -H&H ordered 1 hour after blood administration complete -Iron studies, Vitamin B12 and Folate ordered stat -Suspected source is GI in nature, will consult general surgery -Daily weights -N.p.o. except sips of water with medication -O2 per protocol 2. Abdominal pain -Graduated pain management regimen ordered including Tylenol, oxycodone, and morphine. -IV pantoprazole ordered for prophylaxis -Patient received famotidine and dicyclomine in ER. 3. Diverticulosis -CT negative for acute findings DVT prophylaxis-SCDs This patient was seen by AMARI Ivory under the supervision of Dr. Ortiz. Documented by User: Dr. Libertad Ortiz MD 06/10/21 00:43 HPI - General General Date of Admission: 06/09/21 PFSH Medical History Diverticulosis Home Medications NK 12/20/17 [History Last Taken Unknown] Allergy/AdvReac Type Severity Reaction Status Date / Time No Known Allergies Allergy Verified 06/09/21 17:25 Family History (Updated 06/09/21 @ 22:09 by AMARI Ivory) Brother Cancer Hypertension Mother Hypertension Diabetes Surgical History H/O hernia repair History of cholecystectomy Social History (Updated 06/09/21 @ 22:09 by AMARI Ivory) Smoking Status: Former smoker alcohol intake: never substance use type: does not use Results Lab / Micro Data Result Diagrams: 06/09/21 20:22 06/09/21 17:54
[2021-06-09] MEDS: Famotidine 200 MG/20 ML MDV 20 MG in 0.9% Normal Saline (Pres. free 8 ML 300 MG IV (22:26)
--- NOTE | 2021-06-09 22:40 | ED.RN ---
Medical records were requested from [facility]. Form completed.
[2021-06-09 23:01] LABS: Absolute Lymphocyte Count 1.96 X10^3/uL (0.83-4.51); Absolute Neutrophil Count 6.1 X10^3/uL (2.0-7.7); Eosinophil# 0.01 X10^3/uL; Eosinophils% 0.1 % (0-5); Hematocrit 20.6 % (40-54); Hemoglobin 6.2 g/dL (13.0-16.5); Lymphocyte # 1.96 X10^3/ul (0.83-4.51); Lymphocyte % 23.3 % (19-41); Mean Corp Hgb Conc 30.1 g/dL (32-36); Mean Corpuscular Hgb 36.9 pg (27.0-32.0); Mean Corpuscular Volume 122.6 fL (80-94); Mean Platelet Vol. 10.1 fl (6.2-12.0); Monocyte# 0.32 X10^3/uL; Monocyte% 3.8 % (0-10); NRBC Flagged by Analyzer 0.2 % (0-5); Neutrophil # 6.08 X10^3/uL (2.7-7.7); Neutrophil % 72.3 % (47-70); POSITIVE MORPHOLOGY YES; Platelet Count 416 K/mm3 (150-450); RBC Distribution Width CV 15.2 % (11.6-14.6); RBC Distribution Width SD 68.4 fl (35.1-43.9); Red Blood Count 1.68 M/mm3 (4.6-6.2); White Blood Count 8.4 K/mm3 (4.4-11.0)
[2021-06-09 23:02] LABS: Ferritin 1027 ng/mL (26-388)
[2021-06-09 23:03] LABS: Differential Indicated SCAN CRITERIA MET
[2021-06-09] MEDS: 0.9% Normal Saline 1,000 ML 100 ML IV (23:31)
[2021-06-10] VITALS (15 sets, daily range): BP systolic 102–139; BP diastolic 52–74; PULSE 79–95; RESP 16–18; TEMP 36.7–37.7; O2SAT 91–96
[2021-06-10] MEDS: BENZOCAINE/MENTHOL 1 LOZENGE MUCOUS MEM (00:05)
[2021-06-10] MEDS: Acetaminophen 325 MG Tablet 650 MG PO (04:08)
[2021-06-10] MEDS: Mag Hydrox/Al Hydrox/Simeth 30 ML UDC PO (04:09)
--- NOTE | 2021-06-10 05:30 | NURSING ---
PT C/O BEING VERY ITCHY. C/O HAVING HIVES BUT THIS NURSE NOT SEEN IT.PT REQUESTING BENADRYL. BOTH ARMS VERY DRY. LOTION GIVEN TO APPLY
[2021-06-10] MEDS: DiphenhydrAMINE 50 MG/ML Syringe 25 MG IV ×2 (05:51→16:07)
[2021-06-10 06:58] LABS: Absolute Lymphocyte Count 1.13 X10^3/uL (0.83-4.51); Absolute Neutrophil Count 4.9 X10^3/uL (2.0-7.7); Eosinophil# 0.02 X10^3/uL; Eosinophils% 0.3 % (0-5); Hematocrit 24.8 % (40-54); Hemoglobin 7.8 g/dL (13.0-16.5); Lymphocyte # 1.13 X10^3/ul (0.83-4.51); Mean Corp Hgb Conc 31.5 g/dL (32-36); Mean Corpuscular Hgb 34.7 pg (27.0-32.0); Mean Corpuscular Volume 110.2 fL (80-94); Mean Platelet Vol. 9.7 fl (6.2-12.0); Monocyte% 3.2 % (0-10); NRBC Flagged by Analyzer 0.3 % (0-5); POSITIVE MORPHOLOGY YES; Platelet Count 374 K/mm3 (150-450); Red Blood Count 2.25 M/mm3 (4.6-6.2); White Blood Count 6.3 K/mm3 (4.4-11.0)
[2021-06-10 07:05] LABS: Differential Indicated SCAN CRITERIA MET
[2021-06-10 07:26] LABS: ALB/GLOB Ratio 1.1 RATIO (0.9-2.4); AST(SGOT) 16 U/L (15-37); Alanine Aminotransfer ALT/SGPT 19 U/L (16-61); Albumin, Serum 2.8 g/dL (3.2-5.0); Alkaline Phosphatase 48 U/L (45-117); Anion Gap 3 (5-15); BUN 16 mg/dL (7-18); BUN/Creat Ratio 19.3 RATIO (10-20); Calcium,Total 7.9 mg/dL (8.5-10.1); Chloride 110 mmol/L (98-107); Creatinine, Serum 0.83 mg/dL (0.70-1.30); EST Glomerular Filtration Rate 101 mL/min (>60); Est Glom Filt Rate - Afr Amer 122 mL/min (>60); Estimated Creatinine Clearance 94.65 ml/min; Globulin 2.6 g/dL (2.2-4.2); Glucose 119 mg/dL (74-106); Potassium 3.7 mmol/L (3.5-5.1); Protein, Total 5.4 g/dL (6.4-8.2); Sodium Level 140 mmol/L (136-145)
[2021-06-10 07:27] LABS: Hypochromasia 1+; Iron 94 ug/dL (65-175); Iron Binding Capacity,Total 191 ug/dL (250-450); PERCENT IRON SATURATION 49.2 % (15.0-55.0); Polychromasia 1+
[2021-06-10 07:28] LABS: Anisocytosis 2+
--- NOTE | 2021-06-10 07:47 | CON.PCM.SX_ITS ---
Assessment & Plan Assessment/Plan (1) Anemia: QUALIFIERS: Anemia type: unspecified type Qualified Code(s): D64.9 - Anemia, unspecified (2) Abdominal pain: QUALIFIERS: Abdominal location: periumbilical Qualified Code(s): R10.33 - Periumbilical pain PLAN: The patient has been having periumbilical pain for 2 months. Patient has also been weight loss and loss of appetite. He had his last EGD and colonoscopy 5 years ago which were normal. He received a transfusion 2 weeks ago and is being transfused again. Hemoglobin was 6.2 from 13 with no gross blood loss. Platelet count has gone up and white count is normal. I am unsure as to the etiology of his anemia. His stool guaiac was negative. I will perform an EGD and colonoscopy on Sunday. I have ordered a bowel prep for Sunday afternoon. I would recommend a hematology oncology consultation as there may be a possible malignancy that is being overlooked. There was some slight haziness of the mesentery of the small bowel on the last CT scan. This is nonspecific finding and unsure if this has anything to do with his symptomatology but it is in the same location as his pain. I explained endoscopy in detail to the patient. I explained the risks including but not limited to stroke or heart attack with anesthesia, perforation of the GI tract, bleeding, infection. I explained that any of these could necessitate further emergency surgery. The patient understands and all questions were answered sufficiently. The patient wishes to proceed with procedure. Joselo Lopez MD Pager: [facility] [address] [place] [address], [address] [place] [address] Office: HPI Consult Data Date of Consult: 06/10/21 HPI Narrative HPI Narrative: MARCELLO ELLSWORTH, is a 61 M who presents with abdominal pain and anemia. Patient reports has been having abdominal pain for around 2 months. It is in his periumbilical region. He is also not having any appetite and has had weight loss. He has not noticed any gross blood in his stool. He was seen here in April and had a CT scan and then he went to [facility] about 2 weeks later and had a transfusion and presents again today with anemia. Patient reports his last colonoscopy and EGD were 5 years ago were normal. [facility] Medical History (Updated 06/10/21 @ 07:[address] Joselo Lopez MD) Diverticulosis Home Medications NK 12/20/17 [History Last Taken Unknown] Allergy/AdvReac Type Severity Reaction Status Date / Time No Known Allergies Allergy Verified 06/09/21 17:25 Family History (Updated 06/09/21 @ 22:09 by Carmencita Jason NP-Jonh) Brother Cancer Hypertension Mother Hypertension Diabetes Surgical History H/O hernia repair History of cholecystectomy Social History (Updated 06/09/21 @ 22:09 by Carmencita Jason NP-Jonh) Smoking Status: Former smoker alcohol intake: never substance use type: does not use ROS Constitutional Constitutional: Reports anorexia, fatigue and weight loss ENT HEENT: Denies abnormal hearing Cardiovascular Cardiovascular: Denies chest pain Respiratory/Chest Respiratory/Chest: Denies cough Gastrointestinal Gastrointestinal: Reports abdominal pain; Denies diarrhea, hematemesis, hematochezia, melena, nausea, rectal bleeding or vomiting Genitourinary Genitourinary: Denies change in urinary stream Musculoskeletal Musculoskeletal: Denies abnormal gait Integumentary Integumentary: Denies jaundice Psychiatric Psychiatric: Denies depression Endocrine Endocrinology: Denies flushing Hematologic/Lymphatic Hematologic/Lymphatic: Denies easy bleeding Physical Exam Const alert and oriented x3 Exam Limitations: no limitations HEENT normocephalic Eyes PERRL Neck full ROM Lymph Lymphatic: no lymphadenopathy noted Resp normal respiratory effort Cardio Rate: regular rate Rhythm: regular rhythm GI soft to palpation Palpation: tender periumbilical Extremity General Extremity: normal exam except as noted Neuro CN's II-XII intact bilaterally Psych mental status grossly normal Lab / Micro Data Result Diagrams: 06/10/21 06:35 06/10/21 06:35 Labs: Laboratory Results - last 24 hr 06/09/21 17:54: WBC 9.0, RBC 1.80 L, Hgb 6.7 L, Hct 21.9 L, MCV 121.7 H, MCH 37.2 H, MCHC 30.6 L, RDW Std Deviation 68.2 H, RDW Coeff of [place] 15.3 H, Plt Count 431, MPV 10.1, Immature Gran % (Auto) 0.600, Neut % (Auto) 77.8 H, Lymph % (Auto) 17.6 L, [place] % (Auto) 3.9, Eos % (Auto) 0.0, Baso % (Auto) 0.1, Absolute Neuts (auto) 7.0, Absolute Lymphs (auto) 1.58, Nucleated RBC % 0.4, Differential Comment SCANNED 06/09/21 17:54: Sodium 137, Potassium 3.7, Chloride 106, Carbon Dioxide 26.0, Anion Gap 5, BUN 16, Creatinine 0.86, Estim Creat Clear Calc 91.34, Est GFR (MDRD) Af Amer 117, Est GFR (MDRD) Non-Af 97, BUN/Creatinine Ratio 18.6, Glucose 141 H, Calcium 8.3 L, Total Bilirubin 1.80 H, AST 18, ALT 23, Alkaline Phosphatase 54, Total Protein 6.5, Albumin 3.2, Globulin 3.3, Albumin/Globulin Ratio 1.0 06/09/21 17:54: Lipase 74 06/09/21 19:35: Urine Color Yellow, Urine Clarity Sl. Cloudy, Urine pH 6.0, Ur Specific [place] 1.015, Urine Protein Negative, Urine Glucose (UA) Normal, Urine Ketones Negative, Urine Occult Blood Negative, Urine Nitrite Negative, Urine Bilirubin Negative, Urine Urobilinogen Normal, Ur Leukocyte Esterase Negative, Urine RBC 0 SEEN, Urine WBC 0 SEEN, Ur Squamous Epith Cells 0-5 SEEN, Amorphous Sediment 1+ URATE, Urine Bacteria 0 SEEN, Urine Mucus 0 SEEN 06/09/21 20:22: WBC 8.4, RBC 1.68 L, Hgb 6.2 L, Hct 20.6 L, MCV 122.6 H, MCH 36.9 H, MCHC 30.1 L, RDW Std Deviation 68.4 H, RDW Coeff of [place] 15.2 H, Plt Count 416, MPV 10.1, Immature Gran % (Auto) 0.500, Neut % (Auto) 72.3 H, Lymph % (Auto) 23.3, [place] % (Auto) 3.8, Eos % (Auto) 0.1, Baso % (Auto) 0.0, Absolute Neuts (auto) 6.1, Absolute Lymphs (auto) 1.96, Nucleated RBC % 0.2, Differential Comment 06/09/21 21:15: Blood Type A POSITIVE, Antibody Screen NEGATIVE 06/09/21 21:15: Crossmatch See Detail 06/09/21 22:22: Ferritin 1027 H, Folate 7.10 06/10/21 06:35: Iron 94, TIBC 191 L, Iron Saturation 49.2 06/10/21 06:35: WBC 6.3, RBC 2.25 L, Hgb 7.8 L, Hct 24.8 L, MCV 110.2 H D, MCH 34.7 H, MCHC 31.5 L, RDW Std Deviation Not Reportable, RDW Coeff of [place] Not Reportable, Plt Count 374, MPV 9.7, Immature Gran % (Auto) 0.500, Neut % (Auto) 78.0 H, Lymph % (Auto) 18.0 L, [place] % (Auto) 3.2, Eos % (Auto) 0.3, Baso % (Auto) 0.0, Absolute Neuts (auto) 4.9, Absolute Lymphs (auto) 1.13, Nucleated RBC % 0.3, Polychromasia 1+, Hypochromasia 1+, Anisocytosis 2+ 06/10/21 06:35: Sodium 140, Potassium 3.7, Chloride 110 H, Carbon Dioxide 27.0, Anion Gap 3 L, BUN 16, Creatinine 0.83, Estim Creat Clear Calc 94.65, Est GFR (MDRD) Af Amer 122, Est GFR (MDRD) Non-Af 101, BUN/Creatinine Ratio 19.3, Glucose 119 H, Calcium 7.9 L, Total Bilirubin 2.20 H, AST 16, ALT 19, Alkaline Phosphatase 48, Total Protein 5.4 L, Albumin 2.8 L, Globulin 2.6, Albumin/Globulin Ratio 1.1 Micro: Microbiology 06/09/21 22:15 Nasal Secretion SARS-CoV-2 Antigen (Rapid) - Final 06/09/21 20:43 Stool Stool Occult Blood (TOMEKA) - Final Radiology Impression Abdomen/Pelvis CT 06/09/21 19:22 IMPRESSION: 1. No acute findings. 2. Left renal cyst. Electronically Signed: Ana Mata MD at 20:26 EDT Tel , Service support ,
[2021-06-10 10:14] LABS: Vitamin B12 290 pg/mL (211-911)
[2021-06-10 11:46] LABS: LDH 258 U/L (87-241)
[2021-06-10 11:52] LABS: Platelet Count 418 K/mm3 (150-450); RET-HE 32.9 pg (30-35); Reticulocyte Count 12.83 % (0.5-1.5)
--- NOTE | 2021-06-10 14:43 | PCM.PN.HOSP ---
Documented by User: Jessenia Galan METER MECHANIC, METER MECHANIC-C 06/10/21 15:18 Subjective Subjective Patient seen and examined. Reports pruritic rash. Reports abdominal pain. Denies nausea, vomiting. Denies blood in stool/dark stools. Objective Data Objective Data Vital Signs: Vital Signs Temp Pulse Resp BP Pulse Ox 98.9 F 89 18 139/74 H 96 06/10/21 13:42 06/10/21 13:42 06/10/21 13:42 06/10/21 13:42 06/10/21 13:42 Oxygen Flow Rate (L/min) 2 Oxygen Delivery Method Room Air Weight: 226 lb 4.8 oz Body Mass Index (BMI) 33.4 Intake & Output: Intake and Output for Last 24 Hours 06/08/21 06/09/21 06/10/21 23:59 23:59 23:59 Intake Total 1010 / 1010 1395.00 / 1395.00 Balance 1010 / 1010 1395.00 / 1395.00 Lab / Micro Data Result Diagrams: 06/10/21 06:35 06/10/21 06:35 Labs: Laboratory Results - last 24 hr 06/09/21 17:54: WBC 9.0, RBC 1.80 L, Hgb 6.7 L, Hct 21.9 L, MCV 121.7 H, MCH 37.2 H, MCHC 30.6 L, RDW Std Deviation 68.2 H, RDW Coeff of Antonio 15.3 H, Plt Count 431, MPV 10.1, Immature Gran % (Auto) 0.600, Neut % (Auto) 77.8 H, Lymph % (Auto) 17.6 L, [place] % (Auto) 3.9, Eos % (Auto) 0.0, Baso % (Auto) 0.1, Absolute Neuts (auto) 7.0, Absolute Lymphs (auto) 1.58, Nucleated RBC % 0.4, Differential Comment SCANNED 06/09/21 17:54: Sodium 137, Potassium 3.7, Chloride 106, Carbon Dioxide 26.0, Anion Gap 5, BUN 16, Creatinine 0.86, Estim Creat Clear Calc 91.34, Est GFR (MDRD) Af Amer 117, Est GFR (MDRD) Non-Af 97, BUN/Creatinine Ratio 18.6, Glucose 141 H, Calcium 8.3 L, Total Bilirubin 1.80 H, AST 18, ALT 23, Alkaline Phosphatase 54, Total Protein 6.5, Albumin 3.2, Globulin 3.3, Albumin/Globulin Ratio 1.0 06/09/21 17:54: Lipase 74 06/09/21 19:35: Urine Color Yellow, Urine Clarity Sl. Cloudy, Urine pH 6.0, Ur Specific [place] 1.015, Urine Protein Negative, Urine Glucose (UA) Normal, Urine Ketones Negative, Urine Occult Blood Negative, Urine Nitrite Negative, Urine Bilirubin Negative, Urine Urobilinogen Normal, Ur Leukocyte Esterase Negative, Urine RBC 0 SEEN, Urine WBC 0 SEEN, Ur Squamous Epith Cells 0-5 SEEN, Amorphous Sediment 1+ URATE, Urine Bacteria 0 SEEN, Urine Mucus 0 SEEN 06/09/21 20:22: WBC 8.4, RBC 1.68 L, Hgb 6.2 L, Hct 20.6 L, MCV 122.6 H, MCH 36.9 H, MCHC 30.1 L, RDW Std Deviation 68.4 H, RDW Coeff of Antonio 15.2 H, Plt Count 416, MPV 10.1, Immature Gran % (Auto) 0.500, Neut % (Auto) 72.3 H, Lymph % (Auto) 23.3, [place] % (Auto) 3.8, Eos % (Auto) 0.1, Baso % (Auto) 0.0, Absolute Neuts (auto) 6.1, Absolute Lymphs (auto) 1.96, Nucleated RBC % 0.2, Differential Comment 06/09/21 21:15: Blood Type A POSITIVE, Antibody Screen NEGATIVE 06/09/21 21:15: Crossmatch See Detail 06/09/21 22:22: Ferritin 1027 H, Folate 7.10 06/10/21 06:35: Vitamin B12 290 06/10/21 06:35: Iron 94, TIBC 191 L, Iron Saturation 49.2 06/10/21 06:35: WBC 6.3, RBC 2.25 L, Hgb 7.8 L, Hct 24.8 L, MCV 110.2 H D, MCH 34.7 H, MCHC 31.5 L, RDW Std Deviation Not Reportable, RDW Coeff of Antonio Not Reportable, Plt Count 374, MPV 9.7, Immature Gran % (Auto) 0.500, Neut % (Auto) 78.0 H, Lymph % (Auto) 18.0 L, [place] % (Auto) 3.2, Eos % (Auto) 0.3, Baso % (Auto) 0.0, Absolute Neuts (auto) 4.9, Absolute Lymphs (auto) 1.13, Nucleated RBC % 0.3, Polychromasia 1+, Hypochromasia 1+, Anisocytosis 2+ 06/10/21 06:35: Sodium 140, Potassium 3.7, Chloride 110 H, Carbon Dioxide 27.0, Anion Gap 3 L, BUN 16, Creatinine 0.83, Estim Creat Clear Calc 94.65, Est GFR (MDRD) Af Amer 122, Est GFR (MDRD) Non-Af 101, BUN/Creatinine Ratio 19.3, Glucose 119 H, Calcium 7.9 L, Total Bilirubin 2.20 H, AST 16, ALT 19, Alkaline Phosphatase 48, Total Protein 5.4 L, Albumin 2.8 L, Globulin 2.6, Albumin/Globulin Ratio 1.1 06/10/21 06:35: Retic Count 12.83 H, Immature Retic Fraction 38.60 H, Retic Hgb Equivalent 32.9 06/10/21 06:35: Lactate Dehydrogenase 258 H, Folate 5.30 Micro: Microbiology 06/09/21 22:15 Nasal Secretion SARS-CoV-2 Antigen (Rapid) - Final 06/09/21 20:43 Stool Stool Occult Blood (TOMEKA) - Final Radiography Diagnostic Testing: Radiology Impression Abdomen/Pelvis CT 06/09/21 19:22 IMPRESSION: 1. No acute findings. 2. Left renal cyst. Electronically Signed: Ana Mata MD at 20:26 EDT Tel , Service support , Physical Exam Const alert, oriented x3 and no apparent distress Orientation / Consciousness: awake, oriented to person, oriented to place and oriented to time HEENT normocephalic and moist oral mucous membranes Eyes PERRL, EOMs intact bilaterally and conjunctivae normal Neck no lymphadenopathy Resp normal respiratory effort and clear to auscultation bilaterally Cardio regular rate, regular rhythm and no murmurs Peripheral Pulses: pulses 2+ throughout GI normal to inspection, nondistended, normoactive bowel sounds, non-tender and non-distended Extremity normal to inspection Skin no rashes or lesions noted Skin Narrative: Mild diffuse erythematous rash. Lesions: no lesions Rashes: no rashes Trauma: no lacerations or abrasions Neuro CN's II-XII intact bilaterally, no focal motor deficits, no sensory deficits noted and deep tendon reflexes 2+ bilaterally Psych mental status grossly normal and affect normal Assessment & Plan Assessment/Plan (1) Anemia: QUALIFIERS: Anemia type: unspecified type Qualified Code(s): D64.9 - Anemia, unspecified PLAN: 1. Acute anemia, acute intractable abdominal pain-recent admission to outside facility with no obvious of source of bleeding however cannot undergo EGD/colonoscopy. General surgery consulted. Plan for EGD/colonoscopy on Sunday. Status post 2 units PRBC. Trend H&H. Continue IV PPI. Due to recurrent significant symptomatic anemia, feel it is pertinent for patient to undergo scopes on an inpatient basis. CT of abdomen and outside facility significant for acute mid mesenteric panniculitis versus possible lymphoma. Patient was evaluated by hematology and oncology for concern for possible lymphoma as well as symptomatic anemia. Patient underwent hemolysis work-up. LDH within normal limits. Haptoglobin and direct Harpal test completed. Haptoglobin normal. Do not see results for direct Harpal test. Per records, there was no concern for acute malignancy per heme oncology evaluation. 2. Allergic dermatitis-initiate steroid regimen. As needed Benadryl. 3. History of recent diverticulitis-reports that he did not complete prescribed treatment. 4. Recent shingles 5. Obesity- encouraged diet and lifestyle modifications. DVT prophylaxis-SCDs This patient was seen by [facility] under the supervision of Dr. Canela. Documented by User: Dr. Katarzyna Canela DO 06/10/21 16:42 Subjective Subjective Patient was seen in conjunction with Jessenia Galan NP. The following is representation of my independent history and physical examination. Please see below for any addendum to the above. Patient reports that he has had abdominal pain in the periumbilical area on and off since April when he was seen here in the emergency department and diagnosed with diverticulitis. He has had multiple CAT scans which have been negative for any acute processes. During that time he is also had a diffuse urticarial rash. He was evaluated and treated over at [facility] in [place] for his anemia where he received 2 units of packed red blood cells and had an oncology work-up with relates to abnormal lymphadenopathy that was suspicious for lymphoma during his stay there. He was admitted there from May 29 through May 31. Heme-onc had no concern for lymphoma and its noted that they ruled out hemolytic anemia at that time. The patient did not have any scopes. He has not noted any bright red blood per rectum, melena and has had no hematemesis. He has no family history of medical diseases that are like this. He has no children. He states that he did feel a bit better, with regards to his rash, while he was on prednisone but he had only 1 day treatment with this this Objective Data Lab / Micro Data Result Diagrams: 06/10/21 06:35 06/10/21 06:35 Physical Exam Const alert, oriented x3 and no apparent distress Constitutional Narrative: And older Derek white male lying in bed sleeping but awakens easily, at bedside, patient is nontoxic and appears comfortable at this time Exam Limitations: no limitations HEENT head/scalp atraumatic and moist oral mucous membranes HEENT Narrative: Poor dentition, Mallampati 2-3, no thrush Head and Scalp: normocephalic Mouth: oral and palatal mucosa normal Eyes PERRL and EOMs intact bilaterally Eyes Narrative: Pale conjunctiva bilaterally Neck no lymphadenopathy, supple, no JVD and no carotid bruits Neck Narrative: Trachea is midline, thyroid is not enlarged Resp normal respiratory effort, no retractions, no use of accessory muscles and clear to auscultation bilaterally Auscultation: Negative for crackles, rales, rhonchi or wheezes Cardio regular rate, S1 normal heart sound, S2 normal heart sound, no murmurs, no rub, no gallops, no clicks and no JVD GI normal to inspection, nondistended, normoactive bowel sounds, soft to palpation and non-distended GI Narrative: Mild tenderness diffusely but no specific point tenderness Palpation: tender Extremity no clubbing, cyanosis or edema Peripheral Pulses: Yes pulses 2+ throughout Skin no wounds, skin turgor normal, no jaundice, no petechiae and no mottling Skin Narrative: Scattered excoriations, patchy hyperpigmentation, evidence of urticaria Neuro oriented x3, CN's II-XII intact bilaterally, moves all extremities and no focal motor deficits Sensorium / Orientation: awake, alert, oriented to person, oriented to place and oriented to time Speech: speech normal Motor Exam: strength 5/5 throughout Psych affect normal Assessment & Plan Assessment/Plan (1) Acute anemia: (2) Hyperbilirubinemia: (3) Hypoalbuminemia: (4) Elevated LDH: (5) Abdominal pain: QUALIFIERS: Abdominal location: periumbilical Qualified Code(s): R10.33 - Periumbilical pain (6) Rash: PLAN: Assessment: Severe acute anemia Abdominal pain Rash Hyperbilirubinemia Hypoalbuminemia Elevated LDH History of diverticulitis Shingles Obesity History of hiatal hernia status post Sonja duplication Plan: -Etiology of anemia is unclear at this point -Patient did evidently have a work-up at [facility] and can and they were not concerned about lymphoma despite his abnormal CT of the abdomen -There are notes reported that his LDH was within normal limits although his LDH is slightly elevated here (236-05/30/2021) -Haptoglobin was within normal limits there -Repeat haptoglobin is pending now -Serum iron studies were performed and are not consistent with iron deficiency -Doubt this is related to GI losses -Hemoccult was negative -EGD and colonoscopy to rule out GI sources scheduled for 06/13/2021 -Patient has had EGD and colonoscopy within the last 5 years both negative for any acute findings -Reticulocyte count is markedly elevated at 12.83% and appears to be stable so his bone marrow response is appropriate -His bilirubin is actually improved from 4.7-2.2 at this time -We will check a fractionation of his bilirubin to further ascertain whether this is pre- or intrahepatic -It appears that his previous hospitalization his indirect bilirubin was elevated at 3.9 -Patient did have a stress test done at [facility] and this was negative -His ferritin has been elevated during both hospitalizations-question relevance is this could be related to acute phase reactant -With regards to his rash there is not a peripheral eosinophilia present -We will start on IV steroids given patient's abdominal pain
--- NOTE | 2021-06-10 15:34 | CPS ---
explained incentive, pt wants to eat will do after done
[2021-06-10] MEDS: 0.9% Saline Lock 10 ML Syringe IV (16:07)
[2021-06-10] MEDS: 0.9% Normal Saline 1,000 ML 100 ML IV (16:13)
[2021-06-10 16:18] LABS: Bilirubin, Direct 0.54 mg/dL (0.00-0.30)
[2021-06-10 17:22] LABS: Hemoglobin 8.1 g/dL (13.0-16.5)
[2021-06-11] VITALS (7 sets, daily range): BP systolic 111–151; BP diastolic 57–72; PULSE 68–93; RESP 18; TEMP 36.5–36.8; O2SAT 93–98
--- NOTE | 2021-06-11 00:59 | NURSING ---
This RN reviewed WATER CONSERVATIONIST's charting, agree with findings.
[2021-06-11] MEDS: 0.9% Normal Saline 1,000 ML 100 ML IV ×3 (02:53→23:44)
[2021-06-11] MEDS: DiphenhydrAMINE 50 MG/ML Syringe 25 MG IV ×3 (02:54→20:17)
[2021-06-11 07:48] LABS: Absolute Lymphocyte Count 1.27 X10^3/uL (0.83-4.51); Absolute Neutrophil Count 6.1 X10^3/uL (2.0-7.7); Basophil# 0.01 X10^3/uL; Basophil% 0.1 % (0-1); Hematocrit 26.6 % (40-54); Hemoglobin 8.3 g/dL (13.0-16.5); Lymphocyte # 1.27 X10^3/ul (0.83-4.51); Lymphocyte % 16.5 % (19-41); Mean Corp Hgb Conc 31.2 g/dL (32-36); Mean Corpuscular Hgb 34.6 pg (27.0-32.0); Mean Corpuscular Volume 110.8 fL (80-94); Mean Platelet Vol. 9.8 fl (6.2-12.0); Monocyte# 0.27 X10^3/uL; Monocyte% 3.5 % (0-10); NRBC Flagged by Analyzer 0.4 % (0-5); Neutrophil % 79.5 % (47-70); POSITIVE MORPHOLOGY YES; Platelet Count 448 K/mm3 (150-450); RBC Distribution Width CV 21.7 % (11.6-14.6); RBC Distribution Width SD 84.3 fl (35.1-43.9); White Blood Count 7.7 K/mm3 (4.4-11.0)
[2021-06-11] MEDS: proCHLORPERazine 10 MG/2 ML Vial 5 MG IV (07:51)
[2021-06-11 07:59] LABS: Differential Indicated SCAN CRITERIA MET
[2021-06-11 08:00] LABS: Anion Gap 8 (5-15); BUN 16 mg/dL (7-18); BUN/Creat Ratio 24.1 RATIO (10-20); Calcium,Total 7.8 mg/dL (8.5-10.1); Chloride 106 mmol/L (98-107); Creatinine, Serum 0.66 mg/dL (0.70-1.30); EST Glomerular Filtration Rate 130 mL/min (>60); Est Glom Filt Rate - Afr Amer 157 mL/min (>60); Estimated Creatinine Clearance 119.02 ml/min; Glucose 121 mg/dL (74-106); Potassium 3.5 mmol/L (3.5-5.1); Sodium Level 139 mmol/L (136-145)
[2021-06-11 08:38] LABS: Anisocytosis 2+; Hypochromasia 2+; Macrocytosis 2+; Platelet Estimate SLT INC (ADEQ); Polychromasia 2+
[2021-06-11 10:23] LABS: Haptoglobin 85 mg/dL (29-370)
--- NOTE | 2021-06-11 10:34 | PN.HOSP_ITS ---
Documented by User: Jessenia Galan NP, NETWORK LEAD-C 06/11/21 10:53 Subjective Subjective Patient seen and examined. Reports abdominal bloating. Denies nausea, vomiting. Reports rash continues to be pruritic and more pronounced compared to yesterday. Objective Data Objective Data Vital Signs: Vital Signs Temp Pulse Resp BP Pulse Ox 97.7 F L 81 18 151/69 H 95 06/11/21 07:50 06/11/21 07:50 06/11/21 07:50 06/11/21 07:50 06/11/21 07:50 Oxygen Flow Rate (L/min) 2 Oxygen Delivery Method Room Air Weight: 230 lb 6.129 oz Body Mass Index (BMI) 33.4 Intake & Output: Intake and Output for Last 24 Hours 06/09/21 06/10/21 06/11/21 23:59 23:59 23:59 Intake Total 1010 / 1010 1840.00 / 2340.00 1610 / 1610 Balance 1010 / 1010 1840.00 / 2340.00 1610 / 1610 Lab / Micro Data Result Diagrams: 06/11/21 06:32 06/11/21 06:32 Labs: Laboratory Results - last 24 hr 06/10/21 06:35: Diff Path Review February06/10/21 06:35: Retic Count 12.83 H, Immature Retic Fraction 38.60 H, Retic Hgb Equivalent 32.9 06/10/21 06:35: Lactate Dehydrogenase 258 H, Folate 5.30 06/10/21 06:35: Haptoglobin 85 06/10/21 15:50: Total Bilirubin 2.30 H, Direct Bilirubin 0.54 H, Indirect Bilirubin 1.80 H 06/10/21 17:05: Hgb 8.1 L, Hct 26.0 L 06/11/21 06:32: WBC 7.7, RBC 2.40 L, Hgb 8.3 L, Hct 26.6 L, MCV 110.8 H, MCH 34.6 H, MCHC 31.2 L, RDW Std Deviation 84.3 H, RDW Coeff of Antonio 21.7 H, Plt Count 448, MPV 9.8, Immature Gran % (Auto) 0.400, Neut % (Auto) 79.5 H, Lymph % (Auto) 16.5 L, [place] % (Auto) 3.5, Eos % (Auto) 0.0, Baso % (Auto) 0.1, Absolute Neuts (auto) 6.1, Absolute Lymphs (auto) 1.27, Nucleated RBC % 0.4, Platelet Estimate SLT INC, Polychromasia 2+, Hypochromasia 2+, Anisocytosis 2+, Macrocytosis 2+ 06/11/21 06:32: Sodium 139, Potassium 3.5, Chloride 106, Carbon Dioxide 25.0, Anion Gap 8, BUN 16, Creatinine 0.66 L, Estim Creat Clear Calc 119.02, Est GFR (MDRD) Af Amer 157, Est GFR (MDRD) Non-Af 130, BUN/Creatinine Ratio 24.1 H, Glucose 121 H, Calcium 7.8 L Micro: Microbiology 06/09/21 22:15 Nasal Secretion SARS-CoV-2 Antigen (Rapid) - Final 06/09/21 20:43 Stool Stool Occult Blood (TOMEKA) - Final Physical Exam Const alert, oriented x3 and no apparent distress Orientation / Consciousness: awake, oriented to person, oriented to place and oriented to time HEENT normocephalic and moist oral mucous membranes Eyes PERRL, EOMs intact bilaterally and conjunctivae normal Neck no lymphadenopathy Resp normal respiratory effort and clear to auscultation bilaterally Cardio regular rate, regular rhythm and no murmurs Peripheral Pulses: pulses 2+ throughout GI normal to inspection, nondistended, normoactive bowel sounds, non-tender and non-distended Extremity normal to inspection Skin no rashes or lesions noted Skin Narrative: Diffuse erythematous pruritic rash. Lesions: no lesions Rashes: no rashes Trauma: no lacerations or abrasions Neuro CN's II-XII intact bilaterally, no focal motor deficits, no sensory deficits noted and deep tendon reflexes 2+ bilaterally Psych mental status grossly normal and affect normal Assessment & Plan Assessment/Plan (1) Acute anemia: PLAN: 1. Acute symptomatic anemia, acute intractable abdominal pain- recent admission to outside facility with no obvious of source of bleeding however did not undergo EGD/colonoscopy. General surgery consulted. Plan for EGD/colonoscopy on Sunday. Status post 2 units PRBC. Trend H&H. Continue IV PPI. Due to recurrent significant symptomatic anemia, feel it is pertinent for patient to undergo scopes on an inpatient basis. CT of abdomen and outside facility significant for acute mid mesenteric panniculitis versus possible lymphoma. Patient was evaluated by hematology and oncology for concern for possible lymphoma as well as symptomatic anemia. Patient underwent hemolysis work-up. LDH within normal limits at [facility] however slightly elevated here. Haptoglobin normal at outside facility, repeat pending. Per records, there was no concern for acute malignancy per heme oncology evaluation. If GI source ruled out, will likely need further hematology eval. 2. Allergic dermatitis vs early viral exanthem?-Continue IV Solu-Medrol. As needed Benadryl. 3. History of recent diverticulitis-reports that he did not complete prescribed treatment. 4. Recent shingles 5. Obesity- encouraged diet and lifestyle modifications. DVT prophylaxis-SCDs This patient was seen by [facility] under the supervision of Dr. Canela. Documented by User: Dr. Katarzyna Canela DO 06/11/21 12:01 Subjective Subjective This patient was seen in conjunction with Jessenia Galan NP. The following is representation my independent history and physical examination. Please see below for any addendum the above. Patient states that he rested well overnight. He indicates he is developed some nausea this morning and was just medicated with Zofran. Abdomen is uncomfortable and feels sore but no specific abdominal pain at this time. Objective Data Lab / Micro Data Result Diagrams: 06/11/21 06:32 06/11/21 06:32 Physical Exam Const alert, oriented x3 and no apparent distress Constitutional Narrative: older Voodoo white male lying in bed sleeping but awakens easily, at bedside, patient is nontoxic and appears comfortable at this time General Appearance: cooperative Orientation / Consciousness: awake, oriented to person, oriented to place and oriented to time Exam Limitations: no limitations HEENT normocephalic, head/scalp atraumatic and moist oral mucous membranes Head and Scalp: normocephalic Eyes no scleral icterus Eyes Narrative: Pale conjunctiva bilaterally Neck Neck Narrative: Trachea is midline, thyroid is not enlarged General: trachea midline Resp normal respiratory effort, normal air movement, no retractions, no use of accessory muscles and clear to auscultation bilaterally Auscultation: Negative for crackles, rales, rhonchi or wheezes Cardio regular rate, regular rhythm, S1 normal heart sound, S2 normal heart sound, no murmurs, no rub, no gallops, no clicks and no JVD Peripheral Pulses: pulses 2+ throughout GI normal to inspection, nondistended, normoactive bowel sounds, soft to palpation, non-tender and non-distended GI Narrative: Mild tenderness diffusely but no specific point tenderness Palpation: tender other (Generalized) Extremity normal to inspection, normal capillary refill and no clubbing, cyanosis or edema General Extremity: no tenderness to palpation of joints or extremities Skin no rashes or lesions noted, no wounds, skin turgor normal, no jaundice, no eusebio chiae and no mottling Skin Narrative: Diffuse erythematous pruritic rash General Skin Exam: no breakdown and turgor normal Lesions: no lesions Rashes: no rashes Trauma: no lacerations or abrasions Neuro oriented x3, CN's II-XII intact bilaterally, moves all extremities, no focal motor deficits and deep tendon reflexes 2+ bilaterally Sensorium / Orientation: awake and alert Speech: speech normal Motor Exam: Negative for general weakness Psych mental status grossly normal, thought process normal and cooperative Appearance: appropriate Assessment & Plan Assessment/Plan (1) Acute anemia: (2) Elevated LDH: (3) Rash: (4) Hyperbilirubinemia: (5) Hypoalbuminemia: (6) Abdominal pain: QUALIFIERS: Abdominal location: periumbilical Qualified Code(s): R10.33 - Periumbilical pain PLAN: Assessment: Severe acute anemia Abdominal pain Rash Hyperbilirubinemia Hypoalbuminemia Elevated LDH History of diverticulitis Shingles Obesity History of hiatal hernia status post Sonja duplication Plan: -Etiology of anemia is unclear at this point--> differential remains quite wide although I do suspect hemolysis -Patient did evidently have a work-up at [facility] and [facility] and they were not concerned about lymphoma despite his abnormal CT of the abdomen -There are notes reported that his LDH was within normal limits although his LDH is slightly elevated here (236-05/30/2021) -Haptoglobin was within normal limits there but low normal at 30 with lower limit of reference range of 29 -Repeat haptoglobin remains pending -We will look at urine to see if this could be attributed to PNH -Serum iron studies were performed and are not consistent with iron deficiency -Doubt this is related to GI losses -Hemoccult was negative -Hemoglobin is stable today--> we will continue to monitor daily -Magdalene smear is pending but the earliest that will be read is on Sunday -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 -EGD and colonoscopy to rule out GI sources scheduled for 06/13/2021 -Patient has had EGD and colonoscopy within the last 5 years both negative for any acute findings -Reticulocyte count is markedly elevated at 12.83% and appears to be stable so his bone marrow response is appropriate -His bilirubin is actually improved from 4.7-but remains elevated -This is indirect hyperbilirubinemia which further points to hemolysis -Patient did have a stress test done at [facility] and this was negative -His ferritin has been elevated during both hospitalizations-question relevance is this could be related to acute phase reactant -With regards to his rash there is not a peripheral eosinophilia present -Continue IV steroids given patient's abdominal pain Charges/Coding Visit Charges Inpatient E&M: 17625 Subs Hosp L2
--- NOTE | 2021-06-11 12:15 | CASEMGMT ---
MEGA CHILDRESS assessment: Face to Face with patient for initial transition planning/care coordination assessment. MEGA CHILDRESS introduced self and role at [facility], pt voices understanding and consents to assessment. Pt is lying in bed in no distress. Pt is A/Ox4 and answers all questions appropriately. is at bedside during assessment and assists with answering questions. Care providers, pharmacy, and demographics verified/updated. Presentation: Pt c/o abd pain, hx diverticulitis Admitting dx: Abd pain, anemia PCP: [facility] Specialists: Pt states no specialists. [facility]erred [facility] Insurance: SP Prescription Benefit: SP Living Will/HPOA: Pt states has LW and provided to [facility] at this time, copied and placed on chart. Pt/ unsure about HPOA. LNOK: Adrianne Crocker, Living Arrangements: Pt lives with in 1 story home and states no concerns at home. Pt is independent with ADL's. Transportation: Pt states no transportation concerns. DME/HHC: Pt has a cane at home and states no need for any further DME. Pt states no hx of HHC or SNF. Pt states no concerns with going home at time of discharge. Pt works part time. Pt states does not smoke cigarettes or drink ETOH. Pt states no further concerns/needs. CM to follow for any further discharge planning/needs. Advised pt to ask for CM if any further questions/concerns/needs arise, voices understanding. Pt Goal: Home Plan: [place] MEGA CHILDRESS
[2021-06-11] MEDS: 0.9% Saline Lock 10 ML Syringe IV ×2 (12:20→12:49)
[2021-06-11] MEDS: Ensure Clear 120 ML Liquid PO (13:40)
[2021-06-11] MEDS: Mag Hydrox/Al Hydrox/Simeth 30 ML UDC PO (23:46)
[2021-06-12] MEDS: DiphenhydrAMINE 50 MG/ML Syringe 25 MG IV (04:24)
[2021-06-12 04:45] VITALS: BP 140/63; PULSE 87; RESP 18; TEMP 36.8; O2SAT 96
[2021-06-12 06:34] LABS: Absolute Lymphocyte Count 1.94 X10^3/uL (0.83-4.51); Absolute Neutrophil Count 5.3 X10^3/uL (2.0-7.7); Eosinophil# 0.04 X10^3/uL; Eosinophils% 0.5 % (0-5); Hematocrit 26.3 % (40-54); Lymphocyte # 1.94 X10^3/ul (0.83-4.51); Lymphocyte % 25.2 % (19-41); Mean Corp Hgb Conc 30.4 g/dL (32-36); Mean Corpuscular Hgb 34.5 pg (27.0-32.0); Mean Corpuscular Volume 113.4 fL (80-94); Mean Platelet Vol. 9.4 fl (6.2-12.0); Monocyte# 0.42 X10^3/uL; Monocyte% 5.4 % (0-10); NRBC Flagged by Analyzer 0 % (0-5); Neutrophil # 5.27 X10^3/uL (2.7-7.7); Neutrophil % 68.4 % (47-70); POSITIVE MORPHOLOGY YES; Platelet Count 479 K/mm3 (150-450); RBC Distribution Width SD 83.9 fl (35.1-43.9); Red Blood Count 2.32 M/mm3 (4.6-6.2); White Blood Count 7.7 K/mm3 (4.4-11.0)
[2021-06-12 06:37] LABS: Differential Indicated SCAN CRITERIA MET
[2021-06-12 06:50] LABS: Anisocytosis 2+; Polychromasia 2+
[2021-06-12 07:19] VITALS: O2SAT 94
[2021-06-12 07:19] LABS: AST(SGOT) 13 U/L (15-37); Alanine Aminotransfer ALT/SGPT 17 U/L (16-61); Albumin, Serum 2.6 g/dL (3.2-5.0); Alkaline Phosphatase 43 U/L (45-117); Anion Gap 5 (5-15); BUN 16 mg/dL (7-18); BUN/Creat Ratio 24.7 RATIO (10-20); Calcium,Total 7.8 mg/dL (8.5-10.1); Chloride 109 mmol/L (98-107); Creatinine, Serum 0.65 mg/dL (0.70-1.30); EST Glomerular Filtration Rate 134 mL/min (>60); Est Glom Filt Rate - Afr Amer 162 mL/min (>60); Estimated Creatinine Clearance 120.85 ml/min; Globulin 2.7 g/dL (2.2-4.2); Glucose 103 mg/dL (74-106); Potassium 3.4 mmol/L (3.5-5.1); Protein, Total 5.3 g/dL (6.4-8.2); Sodium Level 141 mmol/L (136-145)
--- NOTE | 2021-06-12 07:45 | PN.SURG_ITS ---
Subjective Subjective Patient's current hemoglobin is 8. Patient has not been taking much p.o. due to nausea/abdominal discomfort. Objective Data Objective Data Vital Signs: Vital Signs Temp Pulse Resp BP Pulse Ox 98.3 F 87 18 140/63 H 96 06/12/21 04:45 06/12/21 04:45 06/12/21 04:45 06/12/21 04:45 06/12/21 04:45 Oxygen Flow Rate (L/min) 2 Oxygen Delivery Method Room Air Weight: 229 lb 15.074 oz Body Mass Index (BMI) 33.4 Intake & Output: Intake and Output for Last 24 Hours 06/10/21 06/11/21 06/12/21 23:59 23:59 23:59 Intake Total 1840.00 / 2340.00 4661.67 / 5061.67 600 / 600 Output Total 850 / 850 Balance 1840.00 / 2340.00 3811.67 / 4211.67 600 / 600 Lab / Micro Data Result Diagrams: 06/12/21 05:42 06/12/21 05:42 Labs: Laboratory Results - last 24 hr 06/10/21 06:35: Haptoglobin 85 06/11/21 06:32: WBC 7.7, RBC 2.40 L, Hgb 8.3 L, Hct 26.6 L, MCV 110.8 H, MCH 34.6 H, MCHC 31.2 L, RDW Std Deviation 84.3 H, RDW Coeff of Antonio 21.7 H, Plt Count 448, MPV 9.8, Immature Gran % (Auto) 0.400, Neut % (Auto) 79.5 H, Lymph % (Auto) 16.5 L, [place] % (Auto) 3.5, Eos % (Auto) 0.0, Baso % (Auto) 0.1, Absolute Neuts (auto) 6.1, Absolute Lymphs (auto) 1.27, Nucleated RBC % 0.4, Platelet Estimate SLT INC, Polychromasia 2+, Hypochromasia 2+, Anisocytosis 2+, Macrocyt osis 2+ 06/11/21 06:32: Sodium 139, Potassium 3.5, Chloride 106, Carbon Dioxide 25.0, Anion Gap 8, BUN 16, Creatinine 0.66 L, Estim Creat Clear Calc 119.02, Est GFR (MDRD) Af Amer 157, Est GFR (MDRD) Non-Af 130, BUN/Creatinine Ratio 24.1 H, Glucose 121 H, Calcium 7.8 L 06/11/21 06:32: Direct Antiglob Test NEG w/POLYSPECIFIC 06/12/21 05:42: WBC 7.7, RBC 2.32 L, Hgb 8.0 L, Hct 26.3 L, MCV 113.4 H, MCH 34.5 H, MCHC 30.4 L, RDW Std Deviation 83.9 H, RDW Coeff of Antonio 21.0 H, Plt Count 479 H, MPV 9.4, Immature Gran % (Auto) 0.500, Neut % (Auto) 68.4, Lymph % (Auto) 25.2, [place] % (Auto) 5.4, Eos % (Auto) 0.5, Baso % (Auto) 0.0, Absolute Neuts (auto) 5.3, Absolute Lymphs (auto) 1.94, Nucleated RBC % 0, Polychromasia 2+, Anisocytosis 2+ 06/12/21 05:42: Sodium 141, Potassium 3.4 L, Chloride 109 H, Carbon Dioxide 27.0, Anion Gap 5, BUN 16, Creatinine 0.65 L, Estim Creat Clear Calc 120.85, Est GFR (MDRD) Af Amer 162, Est GFR (MDRD) Non-Af 134, BUN/Creatinine Ratio 24.7 H, Glucose 103, Calcium 7.8 L, Total Bilirubin 1.60 H, AST 13 L, ALT 17, Alkaline Phosphatase 43 L, Total Protein 5.3 L, Albumin 2.6 L, Globulin 2.7, Albumin/Globulin Ratio 1.0 Micro: Microbiology 06/09/21 22:15 Nasal Secretion SARS-CoV-2 Antigen (Rapid) - Final 06/09/21 20:43 Stool Stool Occult Blood (TOMEKA) - Final Physical Exam Narrative Abdomen: Soft, nondistended, tender periumbilically mainly, no peritoneal signs Resp normal respiratory effort Cardio regular rate Assessment & Plan Assessment/Plan (1) Anemia: QUALIFIERS: Anemia type: unspecified type Qualified Code(s): D64.9 - Anemia, unspecified (2) Abdominal pain: QUALIFIERS: Abdominal location: periumbilical Qualified Code(s): R10.33 - Periumbilical pain PLAN: Plan for an EGD and colonoscopy tomorrow with Dr. Lopez. We will start the prep today. Denise Castillo M.D. Pager: [phone] [facility] [address] [place] [address], [facility], [address] [place] [address] Office: [phone] Charges/Coding Visit Charges Inpatient E&M: 27033 Subs Hosp L2
[2021-06-12] MEDS: 0.9% Saline Lock 10 ML Syringe IV (08:21)
[2021-06-12 08:24] VITALS: BP 135/79; PULSE 72; RESP 18; TEMP 36.7; O2SAT 93
--- NOTE | 2021-06-12 10:10 | PCM.PN.HOSP ---
Documented by User: Jessenia Galan NP, [employer] OPERATOR-C 06/12/21 10:32 Subjective Subjective Patient seen and examined. Patient reports diffuse itching however rash does not appear worsened from prior. He denies nausea, vomiting. Denies significant abdominal discomfort. Objective Data Objective Data Vital Signs: Vital Signs Temp Pulse Resp BP Pulse Ox 98.1 F 72 18 135/79 H 93 06/12/21 08:24 06/12/21 08:24 06/12/21 08:24 06/12/21 08:24 06/12/21 08:24 Oxygen Flow Rate (L/min) 2 Oxygen Delivery Method Room Air Weight: 229 lb 15.074 oz Body Mass Index (BMI) 33.4 Intake & Output: Intake and Output for Last 24 Hours 06/10/21 06/11/21 06/12/21 23:59 23:59 23:59 Intake Total 1840.00 / 2340.00 4661.67 / 5061.67 600 / 600 Output Total 850 / 850 Balance 1840.00 / 2340.00 3811.67 / 4211.67 600 / 600 Lab / Micro Data Result Diagrams: 06/12/21 05:42 06/12/21 05:42 Labs: Laboratory Results - last 24 hr 06/10/21 06:35: Haptoglobin 85 06/11/21 06:32: Direct Antiglob Test NEG w/POLYSPECIFIC 06/12/21 05:42: WBC 7.7, RBC 2.32 L, Hgb 8.0 L, Hct 26.3 L, MCV 113.4 H, MCH 34.5 H, MCHC 30.4 L, RDW Std Deviation 83.9 H, RDW Coeff of Antonio 21.0 H, Plt Count 479 H, MPV 9.4, Immature Gran % (Auto) 0.500, Neut % (Auto) 68.4, Lymph % (Auto) 25.2, [place] % (Auto) 5.4, Eos % (Auto) 0.5, Baso % (Auto) 0.0, Absolute Neuts (auto) 5.3, Absolute Lymphs (auto) 1.94, Nucleated RBC % 0, Polychromasia 2+, Anisocytosis 2+ 06/12/21 05:42: Sodium 141, Potassium 3.4 L, Chloride 109 H, Carbon Dioxide 27.0, Anion Gap 5, BUN 16, Creatinine 0.65 L, Estim Creat Clear Calc 120.85, Est GFR (MDRD) Af Amer 162, Est GFR (MDRD) Non-Af 134, BUN/Creatinine Ratio 24.7 H, Glucose 103, Calcium 7.8 L, Total Bilirubin 1.60 H, AST 13 L, ALT 17, Alkaline Phosphatase 43 L, Total Protein 5.3 L, Albumin 2.6 L, Globulin 2.7, Albumin/Globulin Ratio 1.0 Micro: Microbiology 06/09/21 22:15 Nasal Secretion SARS-CoV-2 Antigen (Rapid) - Final 06/09/21 20:43 Stool Stool Occult Blood (TOMEKA) - Final Physical Exam Const alert, oriented x3 and no apparent distress Orientation / Consciousness: awake, oriented to person, oriented to place and oriented to time HEENT normocephalic and moist oral mucous membranes Eyes PERRL, EOMs intact bilaterally and conjunctivae normal Neck no lymphadenopathy Resp normal respiratory effort and clear to auscultation bilaterally Cardio regular rate, regular rhythm and no murmurs Peripheral Pulses: pulses 2+ throughout GI normal to inspection, nondistended, normoactive bowel sounds, non-tender and non-distended Extremity normal to inspection Skin no rashes or lesions noted Skin Narrative: Diffuse erythematous pruritic rash. Appears stable from prior exam. Lesions: no lesions Rashes: no rashes Trauma: no lacerations or abrasions Neuro CN's II-XII intact bilaterally, no focal motor deficits, no sensory deficits noted and deep tendon reflexes 2+ bilaterally Psych mental status grossly normal and affect normal Assessment & Plan Assessment/Plan (1) Anemia: QUALIFIERS: Anemia type: unspecified type Qualified Code(s): D64.9 - Anemia, unspecified PLAN: 1. Acute symptomatic anemia, acute intractable abdominal pain-recent admission to outside facility with no obvious of source of bleeding however did not undergo EGD/colonoscopy. General surgery consulted. Plan for EGD/colonoscopy on Sunday06/13/21. Status post 2 units PRBC. Trend H&H. Continue IV PPI. Due to recurrent significant symptomatic anemia, feel it is pertinent for patient to undergo scopes on an inpatient basis. CT of abdomen and outside facility significant for acute mid mesenteric panniculitis versus possible lymphoma. Patient was evaluated by hematology and oncology for concern for possible lymphoma as well as symptomatic anemia. Patient underwent hemolysis work-up. Per records, there was no concern for acute malignancy per heme oncology evaluation. Plan for hematology consult following EGD/colonoscopy. Patient has elevated LDH, elevated bilirubin with low normal haptoglobin. Suspect hemolytic anemia, unclear type. Urine appears normal in color, low suspicion for intravascular hemolysis. Differentials include potential autoimmune hemolytic anemia, drug-induced hemolysis vs other hemolytic anemia. 2. Allergic dermatitis vs viral exanthem?-Continue IV Solu-Medrol. As needed Benadryl. 3. History of recent diverticulitis-reports that he did not complete prescribed treatment. 4. Recent shingles 5. Obesity- encouraged diet and lifestyle modifications. DVT prophylaxis-SCDs This patient was seen by AMARI Graves under the supervision of Dr. Canela. Documented by User: Dr. Katarzyna Canela DO 06/12/21 14:08 Subjective Subjective Patient was seen in conjunction with Jessenia Galan NP. The following is representation my independent history and exam. Please see below for any addendum to the above. Patient states that he has had continued abdominal pain most notably in the morning. He states last evening he felt like he could have eaten a sandwich. He is currently on a clear liquid diet preparing for his EGD and colonoscopy tomorrow. He has had continued itching with regards to his rash but he feels like the rash is no worse. Objective Data Lab / Micro Data Result Diagrams: 06/12/21 05:42 06/12/21 05:42 Physical Exam Const alert, oriented x3 and no apparent distress Constitutional Narrative: older Adventism white male sitting up on the edge of the bed, is at the bedside, patient is scratching his arms and legs General Appearance: cooperative Orientation / Consciousness: awake, oriented to person, oriented to place and oriented to time Exam Limitations: no limitations HEENT normocephalic, head/scalp atraumatic and moist oral mucous membranes Head and Scalp: normocephalic Eyes PERRL, EOMs intact bilaterally, conjunctivae normal and no scleral icterus Eyes Narrative: Pale conjunctiva bilaterally Neck no lymphadenopathy, supple, no JVD and no carotid bruits Neck Narrative: Trachea is midline, thyroid is not enlarged General: trachea midline Resp normal respiratory effort, normal air movement, no retractions, no use of accessory muscles and clear to auscultation bilaterally Auscultation: Negative for crackles, rales, rhonchi or wheezes Cardio regular rate, regular rhythm, S1 normal heart sound, S2 normal heart sound, no murmurs, no rub, no gallops, no clicks and no JVD Peripheral Pulses: pulses 2+ throughout GI normal to inspection, nondistended, normoactive bowel sounds, soft to palpation and non-distended GI Narrative: Mild tenderness diffusely but no specific point tenderness Palpation: tender other (Generalized) Extremity normal to inspection, normal capillary refill and no clubbing, cyanosis or edema General Extremity: no tenderness to palpation of joints or extremities Skin no rashes or lesions noted, no wounds, skin turgor normal, no jaundice, no petechiae and no mottling Skin Narrative: Widespread erythematous patchy pruritic rash, areas of excoriation noted, appears stable from prior exam General Skin Exam: no breakdown and turgor normal Lesions: no lesions Rashes: no rashes Trauma: no lacerations or abrasions Neuro oriented x3, moves all extremities, no focal motor deficits and deep tendon reflexes 2+ bilaterally Sensorium / Orientation: awake and alert Speech: speech normal Motor Exam: Negative for general weakness Psych mental status grossly normal, thought process normal, cooperative and affect normal Appearance: appropriate Assessment & Plan Assessment/Plan (1) Acute anemia: (2) Hyperbilirubinemia: (3) Elevated LDH: (4) Hypoalbuminemia: (5) Rash: (6) Abdominal pain: QUALIFIERS: Abdominal location: periumbilical Qualified Code(s): R10.33 - Periumbilical pain PLAN: -Ossific etiology of anemia is unclear at this point--> I do suspect hemolysis--> question PNH/AIHA -Patient did evidently have a work-up at [facility] and [facility] and they were not concerned about lymphoma despite his abnormal CT of the abdomen -All of this has seem to have started since his visit to the ED with abdominal pain on 05/04/2021 because at that time he had a normal hemoglobin and a normal bilirubin -There are notes reported that his LDH was within normal limits although his LDH is slightly elevated here (236-05/30/2021) -Haptoglobin was within normal limits there but low normal at 30 with lower limit of reference range of 29 -Repeat haptoglobin was within normal range here but slightly improved -Administration of steroids could mask these issues if there is an autoimmune component related to his anemia -Check a.m. coags -Complements are pending -YAQUELIN pending -Consult heme-onc in the morning-->? need for bone marrow biopsy and aspiration as well as flow cytometry -Serum iron studies were performed and are not consistent with iron deficiency -Doubt this is related to GI losses -Hemoccult was negative -Hemoglobin is stable today--> we will continue to monitor daily -Magdalene smear is pending but the earliest that will be read is on Sunday -done at [facility] and showed anisopoikilocytosis -EGD and colonoscopy to rule out GI sources scheduled for 06/13/2021 -Patient has had EGD and colonoscopy within the last 5 years both negative for any acute findings -Patient has continued abdominal pain but has had multiple CTs of the abdomen that showed possible mesenteric panniculitis -Reticulocyte count is markedly elevated at 12.83% and appears to be stable so his bone marrow response is appropriate -His bilirubin is actually improved from 4.7- remains elevated but markedly better since the initiation of steroids -This is indirect hyperbilirubinemia which further points to hemolysis -Patient did have a stress test done at [facility] and this was negative -His ferritin has been elevated during both hospitalizations-question relevance is this could be related to acute phase reactant -With regards to his rash there is not a peripheral eosinophilia present -Continue IV steroids given patient's abdominal pain and nausea--> increased to 40 twice daily secondary to continued pruritus Charges/Coding Visit Charges Inpatient E&M: 59001 Subs Hosp L3
[2021-06-12] MEDS: Bisacodyl 5 MG Tablet 20 MG PO (10:22)
[2021-06-12] MEDS: hydrOXYzine 10 MG Tablet PO (10:22)
[2021-06-12] MEDS: Ensure Clear 120 ML Liquid PO (10:27)
[2021-06-12] MEDS: 0.9% Normal Saline 1,000 ML 100 ML IV ×2 (11:57→21:40)
[2021-06-12 12:19] LABS: Complement C3 93 mg/dL (82-167)
[2021-06-12 12:29] VITALS: BP 143/63; PULSE 79; RESP 18; TEMP 36.7; O2SAT 96
[2021-06-12] MEDS: Polyethylene Glycol 3350 BOWEL PREP PO (12:32)
[2021-06-12 14:07] LABS: ANTINUCLEAR ANTIBODIES DIRECT Positive (Negative); Anti-Centromere B Ab <0.2 AI (0.0-0.9); Anti-Chromatin <0.2 AI (0.0-0.9); Anti-Jo <0.2 AI (0.0-0.9); Anti-Scleroderma-70 AB <0.2 AI (0.0-0.9); RNP Ab 0.6 AI (0.0-0.9); SJOGREN'S Anti-SS-A test > 8.0 AI (0.0-0.9); SJOGREN'S Anti-SS-B test < 0.2 AI (0.0-0.9); Smith Ab <0.2 AI (0.0-0.9)
[2021-06-12 17:27] VITALS: BP 136/56; PULSE 82; RESP 18; TEMP 36.7; O2SAT 94
[2021-06-12 23:10] VITALS: BP 146/79; PULSE 80; RESP 18; TEMP 36.9; O2SAT 95
[2021-06-13] VITALS (9 sets, daily range): BP systolic 101–140; BP diastolic 51–82; PULSE 68–76; RESP 16–18; TEMP 36–36.8; O2SAT 94–98; BMI 33.6
--- NOTE | 2021-06-13 06:00 | EKG12_ITS ---
Test Reason : Blood Pressure : / mmHG Vent. Rate : 080 BPM Atrial Rate : 080 BPM P-R Int : 160 ms QRS Dur : 098 ms QT Int : 402 ms P-R-T Axes : 056 026 029 degrees QTc Int : 463 ms Sinus rhythm with Premature atrial complexes Otherwise normal ECG When compared with ECG of 20-DEC-2017 20:00, Premature atrial complexes are now Present Confirmed by EDISON ALEMAN, AMERICA ([id number]), video tape editor GINI ZAYAS ([id number]) on 06/14/2021 9:46:34 AM Referred By: ALIE Confirmed By:AMERICA HOGAN MD
--- NOTE | 2021-06-13 07:10 | PCM.PN.SRG ---
Subjective Subjective Patient reports bowel prep went well and he is not having any abdominal pain this morning Objective Data Objective Data Vital Signs: Vital Signs Temp Pulse Resp BP Pulse Ox 97.9 F 69 16 130/69 H 94 06/13/21 04:40 06/13/21 04:40 06/13/21 04:40 06/13/21 04:40 06/13/21 04:40 Oxygen Flow Rate (L/min) 2 Oxygen Delivery Method Room Air Weight: 227 lb 11.8 oz Body Mass Index (BMI) 33.4 Intake & Output: Intake and Output for Last 24 Hours 06/11/21 06/12/21 06/13/21 23:59 23:59 23:59 Intake Total 4661.67 / 5061.67 4191.67 / 4391.67 1106.67 / 1106.67 Output Total 850 / 850 Balance 3811.67 / 4211.67 4191.67 / 4391.67 1106.67 / 1106.67 Lab / Micro Data Result Diagrams: 06/12/21 05:42 06/12/21 05:42 Labs: Laboratory Results - last 24 hr 06/11/21 06:32: Complement C3 93, Complement C4 18 06/12/21 05:42: Sodium 141, Potassium 3.4 L, Chloride 109 H, Carbon Dioxide 27.0, Anion Gap 5, BUN 16, Creatinine 0.65 L, Estim Creat Clear Calc 120.85, Est GFR (MDRD) Af Amer 162, Est GFR (MDRD) Non-Af 134, BUN/Creatinine Ratio 24.7 H, Glucose 103, Calcium 7.8 L, Total Bilirubin 1.60 H, AST 13 L, ALT 17, Alkaline Phosphatase 43 L, Total Protein 5.3 L, Albumin 2.6 L, Globulin 2.7, Albumin/Globulin Ratio 1.0 Micro: Microbiology 06/09/21 22:15 Nasal Secretion SARS-CoV-2 Antigen (Rapid) - Final 06/09/21 20:43 Stool Stool Occult Blood (TOMEKA) - Final Physical Exam Const no apparent distress Resp normal respiratory effort Cardio regular rate GI soft to palpation and non-tender Assessment & Plan Assessment/Plan (1) Anemia: QUALIFIERS: Anemia type: unspecified type Qualified Code(s): D64.9 - Anemia, unspecified PLAN: Patient has anemia of unknown origin. Given the patient's other labs there is concern for hemolysis. Plan for EGD and colonoscopy today. I explained endoscopy in detail to the patient. I explained the risks including but not limited to stroke or heart attack with anesthesia, perforation of the GI tract, bleeding, infection. I explained that any of these could necessitate further emergency surgery. The patient understands and all questions were answered sufficiently. The patient wishes to proceed with procedure. Joselo Lopez MD Pager: [facility] [address] [place] [address] [address] [place] [address] Office:
[2021-06-13 07:14] LABS: Absolute Lymphocyte Count 0.71 X10^3/uL (0.83-4.51); Absolute Neutrophil Count 6.3 X10^3/uL (2.0-7.7); Basophil# 0.01 X10^3/uL; Basophil% 0.1 % (0-1); Hematocrit 25.4 % (40-54); Hemoglobin 7.9 g/dL (13.0-16.5); Lymphocyte # 0.71 X10^3/ul (0.83-4.51); Lymphocyte % 9.6 % (19-41); Mean Corp Hgb Conc 31.1 g/dL (32-36); Mean Corpuscular Hgb 34.6 pg (27.0-32.0); Mean Corpuscular Volume 111.4 fL (80-94); Mean Platelet Vol. 9.7 fl (6.2-12.0); Monocyte# 0.32 X10^3/uL; Monocyte% 4.3 % (0-10); NRBC Flagged by Analyzer 0 % (0-5); Neutrophil # 6.28 X10^3/uL (2.7-7.7); Neutrophil % 85.5 % (47-70); POSITIVE MORPHOLOGY YES; Platelet Count 431 K/mm3 (150-450); RBC Distribution Width CV 19.3 % (11.6-14.6); RBC Distribution Width SD 76.7 fl (35.1-43.9); Red Blood Count 2.28 M/mm3 (4.6-6.2); White Blood Count 7.4 K/mm3 (4.4-11.0)
[2021-06-13 07:16] LABS: Differential Indicated SCAN CRITERIA MET
[2021-06-13 07:17] LABS: International Normalized Ratio 1.3; Prothrombin Time (Protime)PT. 15.7 SECONDS (11.7-14.9)
[2021-06-13 07:36] LABS: ALB/GLOB Ratio 0.9 RATIO (0.9-2.4); AST(SGOT) 11 U/L (15-37); Alanine Aminotransfer ALT/SGPT 17 U/L (16-61); Albumin, Serum 2.6 g/dL (3.2-5.0); Alkaline Phosphatase 43 U/L (45-117); Anion Gap 4 (5-15); Anisocytosis 2+; BUN 12 mg/dL (7-18); BUN/Creat Ratio 20.4 RATIO (10-20); Calcium,Total 7.9 mg/dL (8.5-10.1); Chloride 109 mmol/L (98-107); Creatinine, Serum 0.59 mg/dL (0.70-1.30); EST Glomerular Filtration Rate 149 mL/min (>60); Est Glom Filt Rate - Afr Amer 181 mL/min (>60); Estimated Creatinine Clearance 133.15 ml/min; Globulin 2.9 g/dL (2.2-4.2); Glucose 126 mg/dL (74-106); Polychromasia 1+; Potassium 3.7 mmol/L (3.5-5.1); Protein, Total 5.5 g/dL (6.4-8.2); Sodium Level 141 mmol/L (136-145)
--- NOTE | 2021-06-13 08:33 | PCS.PANDOC ---
PANDEMIC DOCUMENTATION INITIATED: Date: 05/30/2021 Time: 190
[2021-06-13 09:27] LABS: Partial Thromboplast Time 27.9 Seconds (24.1-36.2)
[2021-06-13] MEDS: 0.9% Saline Lock 10 ML Syringe IV (09:28)
[2021-06-13] MEDS: 0.9% Normal Saline 1,000 ML 100 ML IV (09:28)
--- NOTE | 2021-06-13 12:57 | PCM.CONS.B ---
Consult Date of Consult: 06/13/[address] Canela regarding anemia. My final recommendation will be communicated by electronic medical records. HPI Narrative MARCELLO ELLSWORTH, is a 61 M who presents with complaints of generalized abdominal pain 8 out of 10 prior to medications and general fatigue for couple weeks. Patient also reports that he has lost a considerable amount of weight over the past few weeks. Patient states that he has been struggling with anemia of unknown origin. Patient has been worked up by [facility] and states he could not find anything to explain the anemia. Patient currently denies fever, chills, shortness of breath, chest pain, cough, nausea, vomiting, constipation, diarrhea. He presented to the hospital with a hemoglobin of 6.7. Initial work-up did not show any evidence of hemolysis. Both direct and indirect Harpal were negative. His initial iron saturation, vitamin B12 & folic acid level were normal. [facility] Medical History Diverticulosis Home Medications NK 12/20/17 [History Last Taken Unknown] Allergy/AdvReac Type Severity Reaction Status Date / Time No Known Allergies Allergy Verified 06/09/21 17:25 Family History (Updated 06/09/21 @ 22:09 by Carmencita Jason NP-C) Brother Cancer Hypertension Mother Hypertension Diabetes Surgical History H/O hernia repair History of cholecystectomy Social History (Updated 06/09/21 @ 22:09 by Carmencita Jason NP-C) Smoking Status: Former smoker alcohol intake: never substance use type: does not use ROS Constitutional Constitutional: Reports fatigue and weight loss; Denies anorexia, chills, fever(s) or weakness Cardiovascular Cardiovascular: Denies chest pain, edema or palpitations Respiratory/Chest Respiratory/Chest: Denies cough, shortness of breath at rest or shortness of breath with exertion Gastrointestinal Gastrointestinal: Reports abdominal pain and vomiting; Denies constipation, diarrhea or nausea Genitourinary Genitourinary: Denies dysuria Musculoskeletal Musculoskeletal: Denies back pain, extremity pain, joint pain or joint stiffness Integumentary Integumentary: Denies dry skin Neurologic Neurologic: Denies abnormal gait, abnormal speech, confusion or dizziness Psychiatric Psychiatric: Denies anxiety or depression Endocrine Endocrinology: Denies change in body appearance Hematologic/Lymphatic Hematologic/Lymphatic: Reports anemia Weight Weight: 225 lb Body Mass Index (BMI) 33.2 Physical Exam Const alert, oriented x3 and no apparent distress General Appearance: cooperative + PALLOR HEENT normocephalic and head/scalp atraumatic Eyes conjunctivae normal and no scleral icterus Neck supple and no JVD General: trachea midline Resp normal respiratory effort, normal air movement and clear to auscultation bilaterally Cardio regular rate, regular rhythm, S1 normal heart sound and S2 normal heart sound GI normal to inspection, nondistended, normoactive bowel sounds and soft to palpation Palpation: tender other (Generalized) Extremity normal capillary refill and no clubbing, cyanosis or edema General Extremity: no tenderness to palpation of joints or extremities Skin General Skin Exam: no breakdown and turgor normal Lesions: no lesions Rashes: no rashes Neuro no focal motor deficits and no sensory deficits noted Speech: speech normal Motor Exam: Negative for general weakness Psych thought process normal, cooperative and affect normal Appearance: appropriate Results Lab / Micro Data Result Diagrams: 06/09/21 20:22 document embedded image 06/09/21 17:54 document embedded image Labs: Laboratory Results - last 24 hr 06/09/21 17:54: WBC 9.0, RBC 1.80 L, Hgb 6.7 L, Hct 21.9 L, MCV 121.7 H, MCH 37.2 H, MCHC 30.6 L, RDW Std Deviation 68.2 H, RDW Coeff of Antonio 15.3 H, Plt Count 431, MPV 10.1, Immature Gran % (Auto) 0.600, Neut % (Auto) 77.8 H, Lymph % (Auto) 17.6 L, [place] % (Auto) 3.9, Eos % (Auto) 0.0, Baso % (Auto) 0.1, Absolute Neuts (auto) 7.0, Absolute Lymphs (auto) 1.58, Nucleated RBC % 0.4, Differential Comment SCANNED 06/09/21 17:54: Sodium 137, Potassium 3.7, Chloride 106, Carbon Dioxide 26.0, Anion Gap 5, BUN 16, Creatinine 0.86, Estim Creat Clear Calc 91.34, Est GFR (MDRD) Af Amer 117, Est GFR (MDRD) Non-Af 97, BUN/Creatinine Ratio 18.6, Glucose 141 H, Calcium 8.3 L, Total Bilirubin 1.80 H, AST 18, ALT 23, Alkaline Phosphatase 54, Total Protein 6.5, Albumin 3.2, Globulin 3.3, Albumin/Globulin Ratio 1.0 06/09/21 17:54: Lipase 74 06/09/21 19:35: Urine Color Yellow, Urine Clarity Sl. Cloudy, Urine pH 6.0, Ur Specific [place] 1.015, Urine Protein Negative, Urine Glucose (UA) Normal, Urine Ketones Negative, Urine Occult Blood Negative, Urine Nitrite Negative, Urine Bilirubin Negative, Urine Urobilinogen Normal, Ur Leukocyte Esterase Negative, Urine RBC 0 SEEN, Urine WBC 0 SEEN, Ur Squamous Epith Cells 0-5 SEEN, Amorphous Sediment 1+ URATE, Urine Bacteria 0 SEEN, Urine Mucus 0 SEEN 06/09/21 21:15: Crossmatch See Detail Micro: Microbiology 06/09/21 20:43 Stool Stool Occult Blood (TOMEKA) - Final Radiology Impression Abdomen/Pelvis CT 06/09/21 19:22 IMPRESSION: 1. No acute findings. 2. Left renal cyst. Electronically Signed: Ana Mata MD at 20:26 EDT Tel , Service support , Assessment/Plan (1) Anemia: Anemia secondary to acute blood loss; elevated reticulocyte count without any evidence of hemolysis -Peripheral blood smear showed increased anisocytosis and reticulocytosis. Platelet is increased, no schistocytes, spherocytes with neutrophilia -Both direct and indirect Harpal were negative. -CT abdomen pelvis showed no indication for lymphoma or malignancies Plan: -Transfuse blood for hemoglobin < 7.0 gm/dL -Monitor H&H -Repeat vitamin B12 and methylmalonic acid level. (2) Generalized abdominal pain and unexplained weight loss -Possibly from GI bleeding Plan: -GI evaluation this afternoon, EGD and colonoscopy pending. Assessment & Plan Assessment/Plan (1) Acute anemia: PLAN: Will monitor, transfuse blood if indicated and follow-up in my office in 1 month for anemia.
[2021-06-13 13:08] LABS: Anti-dsDNA Ab <1 IU/mL (0-9)
[2021-06-13 13:54] LABS: Pathologist Review Reviewed
--- NOTE | 2021-06-13 14:20 | OP.EGD_ITS ---
Patient Name: Rob Crocker Procedure Date: 06/13/2021 1:48 PM Date of : 1960 Age: 61 Procedure: Upper GI endoscopy Indications: Iron deficiency anemia secondary to chronic blood loss Providers: Joselo Lopez MD Medicines: Monitored Anesthesia Care Patient Profile: This is a 61 year old male. Refer to note in patient chart for documentation of history and physical. Complications: No immediate complications. Procedure: Pre-Anesthesia Assessment: - Prior to the procedure, a History and Physical was performed, and patient medications and allergies were reviewed. The patient's tolerance of previous anesthesia was also reviewed. The risks and benefits of the procedure and the sedation options and risks were discussed with the patient. All questions were answered, and informed consent was obtained. Prior Anticoagulants: The patient has taken no previous anticoagulant or antiplatelet agents. After reviewing the risks and benefits, the patient was deemed in satisfactory condition to undergo the procedure. After obtaining informed consent, the endoscope was passed under direct vision. Throughout the procedure, the patient's blood pressure, pulse, and oxygen saturations were monitored continuously. The Endoscope was introduced through the mouth, and advanced to the fourth part of duodenum. The upper GI endoscopy was accomplished without difficulty. The patient tolerated the procedure well. Scope In: 1:58:25 PM Scope Out: 2:00:41 PM Total Procedure Duration Time 0 hours 2 minutes 16 seconds Findings: The esophagus was normal. The stomach was normal. The examined duodenum was normal. Impression: - Normal esophagus. - Normal stomach. - Normal examined duodenum. - No specimens collected. Recommendation: - [facility]. - Resume previous diet. - Continue present medications. Procedure Code(s): --- Professional --- 01533, Esophagogastroduodenoscopy, flexible, transoral; diagnostic, including collection of specimen(s) by brushing or washing, when performed (separate procedure) Diagnosis Code(s): --- Professional --- D50.0, Iron deficiency anemia secondary to blood loss (chronic) CPT copyright 2017 [employer]. All rights reserved. The codes documented in this report are preliminary and upon ordnance officer review may be revised to meet current compliance requirements. Joselo Lopez MD 06/13/2021 2:20:14 PM This report has been signed electronically. Number of Addenda: 0 Note Initiated On: 06/13/2021 1:48 PM
--- NOTE | 2021-06-13 14:20 | OP.CCLET_ITS ---
06/13/2021 Kike Aguiar Re : Upper GI endoscopy procedure for Rob Obregon Cosme This procedure was performed on Sunday, June 13, 2021. My impressions and recommendations are as follows: Impressions : - Normal esophagus. - Normal stomach. - Normal examined duodenum. - No specimens collected. Recommendations : - [facility]. - Resume previous diet. - Continue present medications. My findings are described in the full procedure note, which is enclosed. If I can be of further assistance, please feel free to contact me at Doctor phone number(s): , Work: . Sincerely, Joselo Lopez MD 06/13/2021 2:20:14 PM This report has been signed electronically.
--- NOTE | 2021-06-13 14:22 | OP.COLON_ITS ---
Patient Name: Rob Crocker Procedure Date: 06/13/2021 2:02 PM Date of : 1960 Age: 61 Procedure: Colonoscopy Indications: Iron deficiency anemia secondary to chronic blood loss Providers: Joselo Lopez MD Medicines: Monitored Anesthesia Care Patient Profile: This is a 61 year old male. Refer to note in patient chart for documentation of history and physical. Last Colonoscopy: 5 years ago. Complications: No immediate complications. Procedure: Pre-Anesthesia Assessment: - Prior to the procedure, a History and Physical was performed, and patient medications and allergies were reviewed. The patient's tolerance of previous anesthesia was also reviewed. The risks and benefits of the procedure and the sedation options and risks were discussed with the patient. All questions were answered, and informed consent was obtained. Prior Anticoagulants: The patient has taken no previous anticoagulant or antiplatelet agents. After reviewing the risks and benefits, the patient was deemed in satisfactory condition to undergo the procedure. After I obtained informed consent, the scope was passed under direct vision. Throughout the procedure, the patient's blood pressure, pulse, and oxygen saturations were monitored continuously. The Colonoscope was introduced through the anus and advanced to the cecum, identified by appendiceal orifice and ileocecal valve. The colonoscopy was performed without difficulty. The patient tolerated the procedure well. The quality of the bowel preparation was good. Scope In: 2:04:06 PM Scope Withdrawal Time 0 hours 6 minutes 1 second Scope Out: 2:17:52 PM Total Procedure Duration Time 0 hours 13 minutes 46 seconds Findings: The entire examined colon appeared normal on direct and retroflexion views. Impression: - The entire examined colon is normal on direct and retroflexion views. - No specimens collected. Recommendation: - [facility]. - Resume previous diet. - Continue present medications. - Repeat colonoscopy in 10 years for screening purposes. Procedure Code(s): --- Professional --- 84309, Colonoscopy, flexible; diagnostic, including collection of specimen(s) by brushing or washing, when performed (separate procedure) Diagnosis Code(s): --- Professional --- D50.0, Iron deficiency anemia secondary to blood loss (chronic) CPT copyright 2017 [employer]. All rights reserved. The codes documented in this report are preliminary and upon policyholder information clerk review may be revised to meet current compliance requirements. Joselo Lopez MD 06/13/2021 2:21:36 PM This report has been signed electronically. Number of Addenda: 0 Note Initiated On: 06/13/2021 2:02 PM
--- NOTE | 2021-06-13 14:22 | OP.CCLET_ITS ---
06/13/2021 Kike Aguiar Re : Colonoscopy procedure for Rob Campbellwayne Aguiar This procedure was performed on Sunday, June 13, 2021. My impressions and recommendations are as follows: Impressions : - The entire examined colon is normal on direct and retroflexion views. - No specimens collected. Recommendations : - [facility]. - Resume previous diet. - Continue present medications. - Repeat colonoscopy in 10 years for screening purposes. My findings are described in the full procedure note, which is enclosed. If I can be of further assistance, please feel free to contact me at Doctor phone number(s): , Work: . Sincerely, Joselo Lopez MD 06/13/2021 2:21:36 PM This report has been signed electronically.
--- NOTE | 2021-06-13 14:41 | PCM.DC ---
Discharge Instructions Diet Discharge Diet: Light diet - advance as tolerated Activity Discharge Activity: Return to Normal Activity Dressing / Incision Call your doctor if you observe: Shortness of breath, Dizziness and Chest pain Follow Up Care Test Results: Test results from this visit will be discussed in further detail at your follow-up appointment, if applicable. Discharge Plan Admission Admit Date/Time: 06/09/21 23:10 Primary Reason for Your Visit: Anemia Attending Provider: Katarzyna Canela Primary Care Provider: Kike Aguiar Consulting Providers: Joselo Lopez ; Brett Poole Discharge Orders/Prescriptions Prescriptions: New prednisone 20 mg tablet 40 mg PO DAILY Qty: 30 RF: 0 pantoprazole [Protonix] 40 mg tablet,delayed release (DR/EC) 40 mg PO DAILY Qty: 30 RF: 0 No Action NK RF: 0 Referrals / Follow Up: Josiah Griffiths DO [STAFF PHYSICIAN] - (3-5 days ) Kike Aguiar MD [Primary Care Provider] - 2 Days (You will need repeat CBC at follow-up) Disposition Disposition (needs filled in before D/C Order can be placed): Home, Self Care
--- NOTE | 2021-06-13 14:47 | DS.PCM_ITS ---
Documented by User: Jessenia Galan NP, JOINT CUTTER-C 06/13/21 14:55 Providers Date of Admission: 06/09/21 Date of Discharge: 06/13/21 Primary Care Physician: Dr. Kike Aguiar MD Consultations 06/09/21 23:03 Consult: General Surgery Routine Consulting Provider: Joselo Lopez Reason for Consult: Acute anemia, abdominal pain (unremarkable CT), negative guiac EMERGENT Consult: No MD Notified: Yes Date Notified: 06/09/21 Time Notified: 21:57 Method of Notification: cortext 06/13/21 09:08 Consult: Oncology/Hematology Routine Consulting Provider: Brett Poole Reason for Consult: Anemia, suspected Hemolytic EMERGENT Consult: No MD Notified: Yes Date Notified: 06/13/21 Time Notified: 10:44 Method of Notification: spoke with office Reason For Visit: IRTRACTABLE ABDOMINAL PAIN, ANEMIA Diagnosis Discharge Diagnosis (1) Acute anemia: Status: Acute Code(s): D64.9 - Anemia, unspecified Medications at Discharge Home Medications NK 12/20/17 pantoprazole [Protonix] 40 mg PO DAILY #30 tab 06/13/21 prednisone 40 mg PO DAILY #30 tab 06/13/21 Hospital Course Operations None Procedures Colonoscopy and EGD Summary of Care Provided Minutes Spent on Discharge: 35 Hospital Course: Patient is a 61-year-old male admitted 06/10/2021 due to generalized abdominal pain, fatigue and anemia. 1. Acute symptomatic anemia, acute intractable abdominal pain-GI source ruled out. Recent admission to outside facility with no obvious of source of bleeding however did not undergo EGD/colonoscopy at that time. General surgery consult ed. Underwent EGD/colonoscopy 06/13/21, both of which were unremarkable. Patient received [address] of abdomen at [facility] significant for acute mid mesenteric panniculitis versus possible lymphoma. Patient was evaluated by hematology and oncology for concern for possible lymphoma as well as symptomatic anemia. Patient underwent hemolysis work-up. Per records, there was no concern for acute malignancy per heme oncology evaluation. Hematology consulted again during admission. Patient has elevated LDH, elevated bilirubin with low normal haptoglobin. These labs improved with IV steroids. Patient's symptoms also improved with steroids. Continue to suspect hemolytic anemia, u nclear type. Urine appears normal in color, low suspicion for intravascular hemolysis. Differentials include potential autoimmune hemolytic anemia, drug- induced hemolysis vs other hemolytic anemia. Patient will follow up with hematology in 3 to 5 days as outpatient for ongoing evaluation. He will need repeat CBC in 2 to 3 days by primary care provider. Plan for transfusion for hemoglobin less than 7. Prednisone 40 mg daily until further hematology recommendations as outpatient. Continue daily PPI for GI prophylaxis. 2. Allergic dermatitis vs viral exanthem versus autoimmune related to #1- improved with IV Solu-Medrol during admission. Prednisone at discharge as noted above. 3. History of recent diverticulitis-reports that he did not complete prescribed treatment. No further issues, colonoscopy normal as noted above. 4. Recent shingles 5. Obesity- encouraged diet and lifestyle modifications. Physical Exam Const alert, oriented x3 and no apparent distress Orientation / Consciousness: awake, oriented to person, oriented to place and oriented to time HEENT normocephalic and moist oral mucous membranes Eyes PERRL, EOMs intact bilaterally and conjunctivae normal Neck no lymphadenopathy Resp normal respiratory effort and clear to auscultation bilaterally Cardio regular rate, regular rhythm and no murmurs Peripheral Pulses: pulses 2+ throughout GI normal to inspection, nondistended, normoactive bowel sounds, non-tender and non-distended Extremity normal to inspection Skin no rashes or lesions noted Skin Narrative: Diffuse erythematous pruritic rash. Appears stable from prior exam. Lesions: no lesions Rashes: no rashes Trauma: no lacerations or abrasions Neuro CN's II-XII intact bilaterally, no focal motor deficits, no sensory deficits noted and deep tendon reflexes 2+ bilaterally Psych mental status grossly normal and affect normal Patient seen and examined prior to discharge. Physical assessment as noted above. Patient is stable for discharge with follow up recommendations as noted above. This patient was seen by AMARI Graves under the supervision of Dr. Canela. Weight / BMI Weight Weight: 227 lb 11.8 oz Body Mass Index (BMI) 33.6 ABG / Lab / Microbiology Data Result Diagrams: 06/13/21 06:25 06/13/21 06:25 Laboratory: Laboratory Results - last 24 hr 06/10/21 06:35: Diff Path Review Reviewed 06/11/21 12:44: YAQUELIN Screen Positive H, JODIE-1 Antibody <0.2, SS-A/Ro IgG Antibody > 8.0 H, SS-B/La IgG Antibody < 0.2, Sm (Pond) Antibody <0.2, CHILD WELFARE COUNSELOR Antibody 0.6, Scl-70 Scleroderma Ab <0.2, Double Strand DNA Ab <1, Centromere B Antibody <0.2 06/13/21 06:25: WBC 7.4, RBC 2.28 L, Hgb 7.9 L, Hct 25.4 L, MCV 111.4 H, MCH 34.6 H, MCHC 31.1 L, RDW Std Deviation 76.7 H, RDW Coeff of Antonio 19.3 H, Plt Count 431, MPV 9.7, Immature Gran % (Auto) 0.500, Neut % (Auto) 85.5 H, Lymph % (Auto) 9.6 L, [place] % (Auto) 4.3, Eos % (Auto) 0.0, Baso % (Auto) 0.1, Absolute Neuts (auto) 6.3, Absolute Lymphs (auto) 0.71 L, Nucleated RBC % 0, Polychromasia 1+, Anisocytosis 2+ 06/13/21 06:25: Sodium 141, Potassium 3.7, Chloride 109 H, Carbon Dioxide 28.0, Anion Gap 4 L, BUN 12, Creatinine 0.59 L, Estim Creat Clear Calc 133.15, Est GFR (MDRD) Af Amer 181, Est GFR (MDRD) Non-Af 149, BUN/Creatinine Ratio 20.4 H, Glucose 126 H, Calcium 7.9 L, Total Bilirubin 1.20 H, AST 11 L, ALT 17, Alkaline Phosphatase 43 L, Total Protein 5.5 L, Albumin 2.6 L, Globulin 2.9, Albumin/Globulin Ratio 0.9 06/13/21 06:25: APTT 27.9 06/13/21 06:25: PT 15.7 H, INR 1.3 Microbiology: Microbiology 06/09/21 22:15 Nasal Secretion SARS-CoV-2 Antigen (Rapid) - Final 06/09/21 20:43 Stool Stool Occult Blood (TOMEKA) - Final D/C Instructions Discharge Diet: Light diet - advance as tolerated Call your doctor if you observe: Shortness of breath, Dizziness and Chest pain Meaningful Use Info Meaningful Use Diagnoses (Choose all that apply): None applicable Discharge Plan Admission Admit Date/Time: 06/09/21 23:10 Primary Reason for Your Visit: Anemia Attending Provider: Katarzyna Canela Primary Care Provider: Kike Aguiar Consulting Providers: Joselo Lopez ; Brett Poole Instructions Additional Instructions / Restrictions: You have a scheduled follow-up appointment with Dr. Poole at [facility] ([address] [place] [address]) on SundayJune 21 @ 11:30 am to discuss your anemia and blood work. His office number is [phone] Discharge Orders/Prescriptions Prescriptions: New prednisone 20 mg tablet 40 mg PO DAILY Qty: 30 RF: 0 pantoprazole [Protonix] 40 mg tablet,delayed release (DR/EC) 40 mg PO DAILY Qty: 30 RF: 0 No Action NK RF: 0 Referrals / Follow Up: Josiah Griffiths DO [STAFF PHYSICIAN] - (3-5 days ) Kike Aguiar MD [Primary Care Provider] - 2 Days (You will need repeat CBC at follow-up) Disposition Disposition (needs filled in before D/C Order can be placed): Home, Self Care Documented by User: Dr. Katarzyna Canela DO 06/13/21 18:08 Providers Date of Admission: 06/09/21 Reason For Visit: IRTRACTABLE ABDOMINAL PAIN, ANEMIA Medications at Discharge Home Medications NK 12/20/17 pantoprazole [Protonix] 40 mg PO DAILY #30 tab 06/13/21 prednisone 40 mg PO DAILY #30 tab 06/13/21 Hospital Course Operations - Procedures Colonoscopy (Colonoscopy completely normal) and EGD (Completely normal) Summary of Care Provided Minutes Spent on Discharge: 42 Hospital Course: Mr. Crocker is a 61-year-old Oriental Orthodox white male who presented to the emergency department at [facility] on 06/09/2021 with a chief complaint of abdominal pain. He has had at least a 15 pound weight loss over the past several weeks and a recent admission at [facility] from 05/29 through 05/31 for similar symptoms at that time he was found to be anemic and a basic work-up was performed and he was discharged after transfusion. A CAT scan there showed possible microscopic panniculitis versus lymphoma and he was seen by ellie-onc who did not feel that this was lymphoma and recommended outpatient follow-up. He also had a rash for which she was discharged on oral prednisone but did not fill the prescription until the day prior to presentation and only took 1 dose after discharge. Upon presentation here he had persistent abdominal pain and a negative CT in the emergency department. He was noted to have a significant anemia with a hemoglobin of 5.7 and was transfused. Upon review of his labs it appears he had normal hemoglobin and a normal bilirubin on 05/04/2021 when he presented for abdominal pain at that time and was diagnosed with diverticulitis. Of note he did not complete his antibiotic course because it made him nauseated. Since then, it appears that his hemoglobin has dropped and his bilirubin has increased. He was admitted to the medical floor and we initiated IV steroids 40 mg IV push twice daily for his rash. He was transfused 2 units of packed red blood cells. Iron studies were performed and are not consistent with iron deficiency anemia. He had a low normal B12 for which a methylmalonic acid is pending. His folic acid was within normal limits. He had a mildly elevated LDH. His haptoglobin was normal but he had been on steroids for a few days before this had been drawn. Haptoglobin was also obtained at [facility] and was low normal at 30. Coags were obtained and were within normal limits. He had a Harpal test done here that was negative. Since placing him on steroids his bilirubin has trended down and his hemoglobin has remained stable. Magdalene smear was ordered but results are pending upon discharge. A colonoscopy and EGD were performed to rule out bleed and no source was identified nor were there any stigmata of recent bleeding. His Hemoccult was negative on admission both here and at [facility]. His YAQUELIN was positive on the day of discharge as was his SSA/Ro antibody. I suspect he has autoimmune hemolytic anemia as well as another connective tissue process. His complements were normal although his C4 was low normal. He had a negative anti-Jodie antibody, SSB antibody, Pond antibody, CHILD WELFARE COUNSELOR antibody, SCL-70 antibody, double-stranded DNA, anticentromere B antibody. Given these findings we will have him follow-up with both heme-onc given the concern for hemolytic anemia-Harpal negative and rheumatology at [facility]. Referrals were made for both an appointment has already been made for Dr. Griffiths. He was discharged on prednisone 40 mg daily and instructed to continue this until he follows up with heme-onc and rheumatology. Methylmalonic acid was pending at discharge. Discharge diagnoses: Abdominal pain-resolved Acute anemia-suspect autoimmune hemolytic Elevated YAQUELIN Elevated SSA/Ro IgG antibody Low normal B12 Hyperbilirubinemia Rash Hypoalbuminemia Elevated LDH Obesity Hiatal hernia status post Sonja fundoplication Physical Exam Narrative Patient states he slept well. Had no abdominal pain overnight. He states his rash is feeling better and attributes this all to the steroids as this is the only treatment we have really given him at this time. Const alert, oriented x3 and no apparent distress Constitutional Narrative: older Oriental Orthodox white male lying in bed, appears comfortable, nontoxic General Appearance: cooperative, comfortable, well kempt and well developed Orientation / Consciousness: awake, oriented to person, oriented to place and oriented to time Exam Limitations: no limitations HEENT normocephalic, head/scalp atraumatic and moist oral mucous membranes Eyes PERRL, EOMs intact bilaterally, conjunctivae normal and no scleral icterus Eyes Narrative: Pale conjunctiva bilaterally Neck no lymphadenopathy, supple, no JVD and no carotid bruits Neck Narrative: Trachea is midline, thyroid is not enlarged General: trachea midline Resp normal respiratory effort, normal air movement, no retractions, no use of accessory muscles and clear to auscultation bilaterally Auscultation: Negative for crackles, rales, rhonchi or wheezes Cardio regular rate, regular rhythm, S1 normal heart sound, S2 normal heart sound, no murmurs, no rub, no gallops, no clicks and no JVD Peripheral Pulses: pulses 2+ throughout GI normal to inspection, nondistended, normoactive bowel sounds, soft to palpation, non-tender and non-distended Palpation: tender other (Generalized) Extremity normal to inspection, normal capillary refill and no clubbing, cyanosis or edema General Extremity: no tenderness to palpation of joints or extremities Skin no rashes or lesions noted, no wounds, skin turgor normal, no jaundice, no petechiae and no mottling Skin Narrative: Widespread erythematous patchy pruritic rash, areas of excoriation noted, appears stable from prior exam General Skin Exam: no breakdown and turgor normal Lesions: no lesions Rashes: no rashes Trauma: no lacerations or abrasions Neuro oriented x3, moves all extremities, no focal motor deficits and deep tendon reflexes 2+ bilaterally Sensorium / Orientation: awake and alert Speech: speech normal Motor Exam: Negative for general weakness Psych mental status grossly normal, thought process normal, cooperative and affect normal Appearance: appropriate ABG / Lab / Microbiology Data Result Diagrams: 06/13/21 06:25 06/13/21 06:25 Discharge Plan Admission Admit Date/Time: 06/09/21 23:10 Primary Reason for Your Visit: Anemia Attending Provider: Katarzyna Canela Primary Care Provider: Kike Aguiar Consulting Providers: Joselo Lopez ; Brett Poole Instructions Additional Instructions / Restrictions: You have a scheduled follow-up appointment with Dr. Poole at [facility] ([address] [place] [address]) on SundayJune 21 @ 11:30 am to discuss your anemia and blood work. His office number is [phone] Discharge Orders/Prescriptions Prescriptions: New prednisone 20 mg tablet 40 mg PO DAILY Qty: 30 RF: 0 pantoprazole [Protonix] 40 mg tablet,delayed release (DR/EC) 40 mg PO DAILY Qty: 30 RF: 0 No Action NK RF: 0 Referrals / Follow Up: Josiah Griffiths DO [STAFF PHYSICIAN] - (3-5 days ) Kike Aguiar MD [Primary Care Provider] - 2 Days (You will need repeat CBC at follow-up) Disposition Disposition (needs filled in before D/C Order can be placed): Home, Self Care Charges/Coding Visit Charges Inpatient E&M: 40009 Disch Hosp
[2021-06-14 09:21] LABS: Hepatitis B Surface Antibody Non-Reactive; Hepatitis B Surface Antigen Non-Reactive (Nonreactive); Hepatitis C Antibody Non-Reactive (Nonreactive)
[2021-06-15 09:08] LABS: Hepatitis A IgM Antibody Negative (Negative)
[2021-06-15 13:07] LABS: Hepatitis B Core AB IgM Negative (Negative)
== END 2021-06-13 18:45 | disposition home or self-care (01) | DRG 810 ==
LOC: ED 22:10 → MS3 22:16
PROVIDERS: Internal Medicine Hematology & Oncology; Nurse Practitioner Family; Surgery; Admitting Provider Family Medicine; Emergency Provider Emergency Medicine; PCP Family Medicine; Visit Provider Internal Medicine
PROC: 0DJD8ZZ Inspection of Lower Intestinal Tract, Via Natural or Artificial Opening Endoscopic (ICD-10-PCS; CPT 45378; principal; 2021-06-13 13:10)
DX: D59.10 Autoimmune hemolytic anemia, unspecified (principal); R10.33 Periumbilical pain; L23.9 Allergic contact dermatitis, unspecified cause; B09 Unspecified viral infection characterized by skin and mucous membrane lesions; E80.6 Other disorders of bilirubin metabolism; E88.09 Other disorders of plasma-protein metabolism, not elsewhere classified; R74.02 Elevation of levels of lactic acid dehydrogenase [LDH]; E66.9 Obesity, unspecified; D64.9 Anemia, unspecified; Z68.33 Body mass index [BMI] 33.0-33.9, adult; R63.4 Abnormal weight loss; K57.90 Diverticulosis of intestine, part unspecified, without perforation or abscess without bleeding; Z87.19 Personal history of other diseases of the digestive system; Z86.19 Personal history of other infectious and parasitic diseases; Z87.891 Personal history of nicotine dependence; Z90.49 Acquired absence of other specified parts of digestive tract
CPT/HCPCS: 36415; 74177; 80048; 80053; 81001; 82247; 82248; 82274; 82607; 82728; 82746; 83010; 83540; 83550; 83615; 83690; 83921; 85014; 85018; 85025; 85045; 85610; 85730; 86038; 86140; 86160; 86225; 86235; 86705; 86706; 86709; 86803; 86850; 86880; 86900; 86901; 86920; 86922; 87340; 87426; 93005; 99251; 99285; J7030; J7040; P9016; Q9967; A4216; G0463; J3490

== ENCOUNTER 2021-06-21 13:23 | Inpatient (IN) | payer OTHER, SELFPAY ==
[2021-06-21] VITALS (15 sets, daily range): BP systolic 108–130; BP diastolic 57–71; PULSE 81–102; RESP 16–18; TEMP 36.7–37.3; O2SAT 96–99; BMI 31.7; BMI 31.6
--- NOTE | 2021-06-21 14:08 | EKG12_ITS ---
Test Reason : ABNORMAL LABS Blood Pressure : / mmHG Vent. Rate : 085 BPM Atrial Rate : 085 BPM P-R Int : 164 ms QRS Dur : 090 ms QT Int : 366 ms P-R-T Axes : 034 012 010 degrees QTc Int : 435 ms Normal sinus rhythm Normal ECG Confirmed by AINSA ALEMAN, VAUGHN ([id number]), digital editor GINI ZAYAS ([id number]) on 06/23/2021 9:10:57 AM Referred By: MACKENZIE Confirmed By:VAUGHN LANGE MD
--- NOTE | 2021-06-21 14:10 | EX.ED.DYSGE1 ---
HPI History of Present Illness Chief Complaint: Abn Labs Informant: patient and spouse/S.O. Onset/Context/Timing Onset: Days Context: Gradual Onset Timing: Continuous Current Severity: Mild Maximum Severity: Mild Narrative Narrative: 61-year-old Derek male history of recent anemia over the last several months starting around April. He was just hospitalized and received 2 units of blood. 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 Poole in the office. He needs readmitted and retransfused. He has had a total of 2 transfusions over last several months. Of 4 units of blood total. He denies any chest pain. Says if he stands up he feels like he is going to pass out. Denies nausea, vomiting or diarrhea. He has had both upper and lower endoscopy done here without any specific diagnosis. Prior similar symptoms: Yes Recent Illness/Hospitalization: Yes PFSH PFSH Medical History Diverticulosis Elevated LDH History of stress test Home Medications NK 12/20/17 [History Last Taken Unknown] Allergy/AdvReac Type Severity Reaction Status Date / Time No Known Allergies Allergy Verified 06/21/21 13:26 Family History Brother Cancer Hypertension Mother Hypertension Diabetes Surgical History H/O hernia repair History of cholecystectomy Social History Smoking Status: Former smoker alcohol intake: never substance use type: does not use ROS ROS ED ROS Narrative Denies recent illness. Is tired. Review of Systems ROS Unobtainable: Denies due to encephalopathy Constitutional Constitutional ED: Denies chills or fever(s) Eyes Eyes: Denies change in vision ENT ENT ED: Denies ear pain or sore throat Cardiovascular Cardiovascular: Denies chest pain or palpitations Respiratory/Chest Respiratory/Chest: Denies cough or dyspnea Gastrointestinal Gastrointestinal: Denies abdominal pain, diarrhea, nausea or vomiting Genitourinary Genitourinary ED: Denies dysuria Musculoskeletal Musculoskeletal: Denies myalgias Integumentary Denies rash Neurologic Neurologic: Denies headache(s) Psychiatric Psychiatric: Denies depression Endocrine Endocrinology: Denies polyuria Allergic/Immunologic Allergic/Immunologic ED: Denies urticaria EXAM Physical Exam Narrative Exam Narrative: 61-year-old male no acute distress vital signs stable afebrile. HEENT exam unremarkable. Neck nontender. Lungs clear to auscultation bilaterally. Heart regular rate and rhythm no murmur rate about 85. Abdomen soft nontender. Moving all 4 extremities. Nontender no edema. Neurologically is awake and alert with no focal motor deficits. Const Vital Signs: 06/21/21 13:24 06/21/21 13:55 06/21/21 15:09 Temperature 98.5 F Temperature Source Temporal Pulse Rate 88 Pulse Rate [Lying] 86 Pulse Rate [Sitting] 99 Pulse Rate [Standing] 102 H Respiratory Rate 16 Respiratory Effort Normal Non-Labored Respiratory Pattern Normal Blood Pressure 121/70 H Blood Pressure [Lying] 113/65 Blood Pressure [Sitting] 130/67 H Blood Pressure [Standing] 109/57 L Blood Pressure Mean 87 Blood Pressure Mean [Lying] 81 Blood Pressure Mean [Sitting] 88 Blood Pressure Mean [Standing] 74 Pulse Ox 99 Oxygen Delivery Method Room Air 06/21/21 15:31 Temperature Temperature Source Pulse Rate 82 Pulse Rate [Lying] Pulse Rate [Sitting] Pulse Rate [Standing] Respiratory Rate 16 Respiratory Effort Respiratory Pattern Blood Pressure 109/65 Blood Pressure [Lying] Blood Pressure [Sitting] Blood Pressure [Standing] Blood Pressure Mean 79 Blood Pressure Mean [Lying] Blood Pressure Mean [Sitting] Blood Pressure Mean [Standing] Pulse Ox 96 Oxygen Delivery Method Room Air Positive well nourished and well developed; Negative for cachectic, contractures or unkempt General Appearance ED: well developed, NAD and pallor; Negative for unkempt, cachectic or contractures Nutritional Appearance: Negative for cachectic HEENT Reports moist mucous membranes Negative for trauma or tenderness Eyes PERRL and EOMs intact bilaterally Neck no lymphadenopathy, supple and no JVD General: Negative for tenderness Chest Wall inspection of chest normal and palpation of chest normal Resp normal respiratory effort and clear to auscultation bilaterally Cardio regular rate, regular rhythm, S1 normal heart sound, S2 normal heart sound and no murmurs GI normal to inspection, nondistended, normoactive bowel sounds, non-tender and non-distended Palpation: soft Back/Spine no CVA tenderness Extremity normal to inspection General Extremety ED: Negative for edema or tenderness General Extremity: Negative for edema Neuro oriented x3 and CN's II-XII intact bilaterally Sensorium / Orientation: alert; Negative for orientation impaired, lethargic or stuporous Motor Exam: strength 5/5 throughout Psych mental status grossly normal Appearance: Negative for unkempt Skin no rashes or lesions noted and no wounds General Skin Exam: pallor; Negative for jaundice MDM MDM MDM Narrative Medical decision making narrative: 61-year-old male recurrent anemia of uncertain etiology. On need to be admitted and transfused. He is being typed and crossed. Repeat exam patient is doing well at 1543. He will be admitted. I already spoke to the hospitalist. On repeat exam he does have gross hematuria. This could be secondary to hemolytic anemia versus other etiologies. Lab Data Attestation: I reviewed the patient's lab results. Lab results narrative: CBC shows a white count 13.9. Hemoglobin 6.2. Electrolytes show a gap of 4. Creatinine 0.7. Glucose 121. Labs: Laboratory Results - last 24 hr 06/21/21 06/21/21 06/21/21 14:25 14:25 14:25 WBC 13.9 H RBC 1.82 L Hgb 6.2 L Hct 20.2 L MCV 111.0 H MCH 34.1 H MCHC 30.7 L RDW Std Deviation 62.2 H RDW Coeff of Antonio 15.6 H Plt Count 411 MPV 10.0 Sodium 135 L Potassium 4.1 Chloride 103 Carbon Dioxide 28.0 Anion Gap 4 L BUN 16 Creatinine 0.78 Estim Creat Clear Calc 100.71 Est GFR (MDRD) Af Amer 131 Est GFR (MDRD) Non-Af 108 BUN/Creatinine Ratio 20.6 H Glucose 141 H Calcium 8.1 L Crossmatch See Detail Rhythm Strip Rhythm Strip: Sinus Rhythm Rate: 85 Ectopy: None EKG Initial EKG: Attestation: I personally reviewed and interpreted this EKG as follows: Interpretation: Sinus Rhythm and No Acute Injury Pattern Comments: Normal sinus rhythm rate [address] signs of CT or ischemia. Prior: No Prior Discharge Plan Dx/Rx/DC Orders Clinical Impression: Anemia Disposition Disposition: [facility]
[2021-06-21 14:37] LABS: Hematocrit 20.2 % (40-54); Hemoglobin 6.2 g/dL (13.0-16.5); Mean Corp Hgb Conc 30.7 g/dL (32-36); Mean Corpuscular Hgb 34.1 pg (27.0-32.0); Platelet Count 411 K/mm3 (150-450); RBC Distribution Width CV 15.6 % (11.6-14.6); RBC Distribution Width SD 62.2 fl (35.1-43.9); Red Blood Count 1.82 M/mm3 (4.6-6.2); White Blood Count 13.9 K/mm3 (4.4-11.0)
[2021-06-21 14:48] LABS: Anion Gap 4 (5-15); BUN 16 mg/dL (7-18); BUN/Creat Ratio 20.6 RATIO (10-20); Calcium,Total 8.1 mg/dL (8.5-10.1); Chloride 103 mmol/L (98-107); Creatinine, Serum 0.78 mg/dL (0.70-1.30); EST Glomerular Filtration Rate 108 mL/min (>60); Est Glom Filt Rate - Afr Amer 131 mL/min (>60); Estimated Creatinine Clearance 100.71 ml/min; Glucose 141 mg/dL (74-106); Potassium 4.1 mmol/L (3.5-5.1); Sodium Level 135 mmol/L (136-145)
--- NOTE | 2021-06-21 15:42 | HP.PCM.HOS_ITS ---
HPI - General General Date of Admission: 06/21/21 Date of Service: 06/21/21 Chief Complaint: Acute on Chronic anemia, LH, Dizziness. HPI Narrative The patient is a 61 y/o M w/ PMHx: Obesity, Hx recent diverticulitis, Hx recent Shingles with admission 06/09/21-06/13/21 with acute symptomatic anemia with associated intractable abdominal pain with GI source ruled out with unremarkable EGD and c-scope with work-up notable for elevated LDH, elevated bilirubin with low normal haptoglobin with improvement of both labs and patient associated s uspected autoimmune related rash with steroids, initially IV transitioned to oral upon discharge who now re-presents to the [facility] ED on 06/21/21 with Oncology evaluation on day of presentation with noted recurrent anemia with referral to the ED for evaluation and PRBC administration. Patient has yet to have any bone marrow biopsy assessment of note. Patient reports lightheadedness and dizziness, worse with activity and sudden movements, specifically standing up with near syncopal sensation. He denies any alteration to his stools. Patient does report that he stopped his Protonix and the steroids this prior Sunday secondary to abdominal discomfort. He also notes that he had a nosebleed. Work-up in the ED included T 98.5, heart rate 88, BP 121/70, respiratory rate 16, 99% on room air, CBC with WBC 13.9, hemoglobin 6.2, MCV 111, platelet 411 with no shift performed, BMP with sodium 135, glucose 141. In the ED type and cross being performed per ED physician with plan to unit PRBC administration. [facility] Medical History Diverticulosis Elevated LDH History of stress test Home Medications NK 12/20/17 [History Last Taken Unknown] Allergy/AdvReac Type Severity Reaction Status Date / Time No Known Allergies Allergy Verified 06/21/21 13:26 Family History Brother Cancer Hypertension Mother Hypertension Diabetes Surgical History H/O hernia repair History of cholecystectomy Social History (Updated 06/21/21 @ 17:[address] Libertad Ortiz MD) household members: spouse Smoking Status: Former smoker alcohol intake: never substance use type: does not use ROS ROS Narrative Admission Review of Systems: CONSTITUTIONAL: No weight loss, fever, chills, + weakness or fatigue. HEENT: Eyes: No visual loss, blurred vision, double vision or yellow sclerae. Ears, Nose, Throat: No hearing loss, sneezing, congestion, runny nose or sore throat. SKIN: No rash or itching, lesions, wounds. CARDIOVASCULAR: + LH, dizziness, near syncopal sensation recurrent. No chest pain, chest pressure or chest discomfort, palpitations, edema, orthopnea. RESPIRATORY: + shortness of breath, No cough or sputum, wheezing, hemoptysis. GASTROINTESTINAL: + Abdominal cramping. No anorexia, nausea, vomiting or diarrhea, melena, BRBPR. GENITOURINARY: + Appearance hematuria. No dysuria, frequency, urgency or retention. NEUROLOGICAL: + LH, Dizziness, near syncope sensation. No headache, paralysis, ataxia, numbness or tingling in the extremities, focal weakness, change in bowel or bladder control, seizure. MUSCULOSKELETAL: No muscle, back pain, joint pain or stiffness. HEMATOLOGIC:+ anemia, bleeding or bruising. LYMPHATICS: No enlarged nodes. No history of splenectomy. PSYCHIATRIC: No history of depression or anxiety. ENDOCRINOLOGIC: No reports of sweating, cold or heat intolerance. No polyuria or polydipsia. ALLERGIES: No history of asthma, hives, eczema or rhinitis. Vital Signs Vital Signs Vital Signs: 06/21/21 13:24 06/21/21 13:55 06/21/21 15:09 Temperature 98.5 F Temperature Source Temporal Pulse Rate 88 Pulse Rate [Lying] 86 Pulse Rate [Sitting] 99 Pulse Rate [Standing] 102 H Respiratory Rate 16 Respiratory Effort Normal Non-Labored Respiratory Pattern Normal Blood Pressure 121/70 H Blood Pressure [Lying] 113/65 Blood Pressure [Sitting] 130/67 H Blood Pressure [Standing] 109/57 L Blood Pressure Mean 87 Blood Pressure Mean [Lying] 81 Blood Pressure Mean [Sitting] 88 Blood Pressure Mean [Standing] 74 Pulse Ox 99 Oxygen Delivery Method Room Air 06/21/21 15:31 Temperature Temperature Source Pulse Rate 82 Pulse Rate [Lying] Pulse Rate [Sitting] Pulse Rate [Standing] Respiratory Rate 16 Respiratory Effort Respiratory Pattern Blood Pressure 109/65 Blood Pressure [Lying] Blood Pressure [Sitting] Blood Pressure [Standing] Blood Pressure Mean 79 Blood Pressure Mean [Lying] Blood Pressure Mean [Sitting] Blood Pressure Mean [Standing] Pulse Ox 96 Oxygen Delivery Method Room Air Weight Weight: 215 lb Body Mass Index (BMI) 31.7 Physical Exam Narrative Physical Examination: General: Awake, alert, oriented x 3 and cooperative, laying in the ED bed, pale in appearance, no acute distress. Skin: Pale color, normal turgor, no icterus, no cyanosis. HEENT: AT/NC, EOMI, PERRLA, MMM, no carotid bruits or JVD noted. Lungs: Mildly diminished, greater bases, appropriate effort, no rales, ronchi or wheezing. Heart: Regular rate and rhythm; no gallop, rub audible. Abdomen: Soft, obese, no obvious tenderness palpation, mildly distended, hyperactive bowel sounds, no obvious HSM. Extremities: No cyanosis, no clubbing, mild bilateral ankle nonpitting edema. Neurological: Patient awake, alert, oriented as noted, cognitive function intact; pupils equally reactive to light and accommodation, cranial nerves II- XII grossly normal, moving all 4 extremities, no focal deficits, strength moderately to severely global decrease secondary to symptoms with significant movement, positional changes. Psychiatric: Affect appears fatigued otherwise normal, no acute evidence of depressive or anxiety feelings. Results Lab / Micro Data Result Diagrams: 06/21/21 14:25 06/21/21 14:25 Labs: Laboratory Results - last 24 hr 06/21/21 14:25: WBC 13.9 H, RBC 1.82 L, Hgb 6.2 L, Hct 20.2 L, MCV 111.0 H, MCH 34.1 H, MCHC 30.7 L, RDW Std Deviation 62.2 H, RDW Coeff of Antonio 15.6 H, Plt Count 411, MPV 10.0 06/21/21 14:25: Sodium 135 L, Potassium 4.1, Chloride 103, Carbon Dioxide 28.0, Anion Gap 4 L, BUN 16, Creatinine 0.78, Estim Creat Clear Calc 100.71, Est GFR (MDRD) Af Amer 131, Est GFR (MDRD) Non-Af 108, BUN/Creatinine Ratio 20.6 H, Glucose 141 H, Calcium 8.1 L 06/21/21 14:25: Crossmatch See Detail Assessment & Plan Assessment/Plan (1) Anemia: QUALIFIERS: Anemia type: unspecified type Qualified Code(s): D64.9 - Anemia, unspecified PLAN: The patient is a 61 y/o M w/ PMHx: Obesity, Hx recent diverticulitis, Hx recent Shingles with admission 06/09/21-06/13/21 with acute symptomatic anemia with associated intractable abdominal pain with GI source ruled out with unremarkable EGD and c-scope with work-up notable for elevated LDH, elevated bilirubin with low normal haptoglobin with improvement of both labs and patient associated suspected autoimmune related rash with steroids, initially IV transitioned to oral upon discharge who now re-presents to the [facility] ED on 06/21/21 with Oncology evaluation on day of presentation with noted recurrent anemia with referral to the ED for evaluation and PRBC administration. 1. Acute Symptomatic Anemia, Hyperbilirubinemia, unclear etiology ? GI bleed although unremarkable EGD/C-scope, ? Hemolytic Anemia with suspected underlying Autoimmune disease (connective tissue disease) related: We will admit to medical surgical floor, will continue with plan to unit PRBC administration, will continue IV Solu-Medrol 40 mg twice daily while inpatient with transition back to oral regimen, will consult Dr. Griffiths who is on-call with oncology, given recent significant in-depth evaluation will defer recurrent work-up unless further recommended by oncology except repeat coags and negative melody testing per their request. Will hold on restarting steroids per their request. Recent evaluation included + YAQUELIN, + SSA/Ro antibody, complements normal although his C4 was low normal, negative anti-Maria Del Carmen antibody, SSB antibody, Pond antibody, [employer] antibody, SCL-70 antibody, double-stranded DNA and anticentromere B antibody. Hepatitis panel unremarkable. Methylmalonic Acid 122 which is normal range. 2. Hyperglycemia: Admission glucose 141, likely recent steroids and stress response, will obtain hemoglobin A1c to be cautious 3. History of recent diverticulitis: Patient reported onset of his abdominal pain ongoing as well as anemia following diverticulitis for which he did not complete his antibiotic therapy secondary to nausea, unclear if truly had been diverticulitis and there was more concern that focal region of stranding may have actually been associated with possible mass however per discussions with general surgery this is too small to have a biopsy unless performed open. 4. Obesity: Weight loss and lifestyle changes encouraged. 5. GERD: History of hiatal hernia status post Sonja fundoplication, we will continue PPI. 6. DVT prophylaxis: SCDs, defer any chemoprophylaxis given acute presentation as noted. Charges/Coding Visit Charges Inpatient E&M: 11152 Init Hosp L3
--- NOTE | 2021-06-21 15:59 | NURSING ---
MED SURG WHITE SYMPTOMACIC ANEMIA
[2021-06-21 16:17] LABS: Mucous, Urine 0 SEEN /hpf (<or=2+); Red Blood Cells-Urine 0 SEEN /hpf (0-5); Squamous Epithelial Cells - UA 0 SEEN /hpf (0-5); White Blood Cells 0 SEEN /hpf (0-5)
[2021-06-21 16:33] LABS: Color, Urine Yellow (Yellow); Glucose, Dipstick Normal (Normal); Ketone-Dipstick Negative (Negative); Leukocyte Esterase-Dipstick 25 /ul (Negative); Nitrite-Dipstick Negative (Negative); Occult Blood-Urine 10 /ul (Negative); Protein-Dipstick 15 mg/dl (Negative); Urine Clarity Clear (Clear); Urine Urobilinogen 8 mg/dl (Normal)
[2021-06-21 16:44] LABS: Bacteria 1+ /hpf (None Seen); Urine Bilirubin Dipstick 1 mg/dL (Negative)
[2021-06-21 16:45] LABS: Amorphous Sediment 1+
[2021-06-21 17:46] LABS: Hemoglobin A1c < 3.5 % (3.8-5.6)
[2021-06-21 17:58] LABS: AST(SGOT) 31 U/L (15-37); Alanine Aminotransfer ALT/SGPT 49 U/L (16-61); Albumin, Serum 2.4 g/dL (3.2-5.0); Alkaline Phosphatase 69 U/L (45-117); Bilirubin, Direct 1.17 mg/dL (0.00-0.30); Globulin 4.3 g/dL (2.2-4.2); Protein, Total 6.7 g/dL (6.4-8.2)
[2021-06-21 18:20] LABS: International Normalized Ratio 1.2; Prothrombin Time (Protime)PT. 14.6 SECONDS (11.7-14.9)
[2021-06-21] MEDS: Pantoprazole Sodium 20 MG Tablet PO (21:15)
[2021-06-21] MEDS: 0.9% Saline Lock 10 ML Syringe IV ×2 (21:15→23:42)
[2021-06-21 22:55] LABS: Hematocrit 23.6 % (40-54); Hemoglobin 7.3 g/dL (13.0-16.5)
[2021-06-21] MEDS: 0.9% Normal Saline 1,000 ML 100 ML IV (23:43)
[2021-06-22] VITALS (15 sets, daily range): BP systolic 114–138; BP diastolic 63–72; PULSE 78–94; RESP 16–18; TEMP 36.9–37.6; O2SAT 94–100
[2021-06-22 06:34] LABS: Absolute Lymphocyte Count 1.88 X10^3/uL (0.83-4.51); Absolute Neutrophil Count 8.8 X10^3/uL (2.0-7.7); Basophil# 0.05 X10^3/uL; Basophil% 0.4 % (0-1); Eosinophil# 0.07 X10^3/uL; Eosinophils% 0.6 % (0-5); Hematocrit 22.4 % (40-54); Lymphocyte # 1.88 X10^3/ul (0.83-4.51); Lymphocyte % 16.2 % (19-41); Mean Corp Hgb Conc 31.3 g/dL (32-36); Mean Corpuscular Hgb 32.7 pg (27.0-32.0); Mean Corpuscular Volume 104.7 fL (80-94); Monocyte# 0.73 X10^3/uL; Monocyte% 6.3 % (0-10); NRBC Flagged by Analyzer 0 % (0-5); Neutrophil # 8.75 X10^3/uL (2.7-7.7); Neutrophil % 75.6 % (47-70); POSITIVE MORPHOLOGY YES; Platelet Count 440 K/mm3 (150-450); RBC Distribution Width SD 71.7 fl (35.1-43.9); Red Blood Count 2.14 M/mm3 (4.6-6.2); White Blood Count 11.6 K/mm3 (4.4-11.0)
[2021-06-22 06:42] LABS: Differential Indicated SCAN CRITERIA MET
[2021-06-22 07:00] LABS: ALB/GLOB Ratio 0.6 RATIO (0.9-2.4); AST(SGOT) 21 U/L (15-37); Alanine Aminotransfer ALT/SGPT 41 U/L (16-61); Albumin, Serum 2.2 g/dL (3.2-5.0); Alkaline Phosphatase 62 U/L (45-117); Anion Gap 4 (5-15); BUN 14 mg/dL (7-18); BUN/Creat Ratio 19.9 RATIO (10-20); Calcium,Total 7.9 mg/dL (8.5-10.1); Chloride 107 mmol/L (98-107); EST Glomerular Filtration Rate 121 mL/min (>60); Est Glom Filt Rate - Afr Amer 147 mL/min (>60); Estimated Creatinine Clearance 112.22 ml/min; Globulin 3.8 g/dL (2.2-4.2); Glucose 113 mg/dL (74-106); Potassium 3.9 mmol/L (3.5-5.1); Sodium Level 135 mmol/L (136-145)
[2021-06-22 07:23] LABS: Anisocytosis 1+; Differential Comment SCANNED; Macrocytosis 1+; Polychromasia 1+; Red Cell Morphology N CHROM NORMAL (NORM C&C)
--- NOTE | 2021-06-22 07:59 | PCM.CONS.B ---
Consult Date of Consult: 06/22/[address] Ortiz regarding patient seen last week for anemia. My final recommendation was communicated to Dr. Ortiz yesterday and also by electronic medical record today. HPI The patient is a 61 y/o M w/ PMHx: Obesity, Hx recent diverticulitis, Hx recent Shingles with admission 06/09/21-06/13/21 with acute symptomatic anemia with associated intractable abdominal pain. He had an unremarkable EGD and c-scope with work-up notable for elevated LDH, elevated bilirubin with normal haptoglobin with improvement of both labs. There were no evidence of immune mediated hemolysis, both direct and indirect Harpal were negative. He was suspected autoimmune disease with related rash. He was started steroids, initially IV transitioned to oral upon discharge. He presented to my office yesterday and then transferred to [facility] ED for evaluation of near syncope, symptomatic anemia, and for PRBC transfusion. He reports lightheadedness and dizziness, worse with activity and sudden movements, specifically standing up with near syncopal sensation. He denies any alteration to his stools. Patient does report that he stopped his Protonix and the steroids this prior Sunday secondary to abdominal discomfort and muscle weakness. He also notes that he had a nosebleed. Work-up in the ED included T 98.5, heart rate 88, BP 121/70, respiratory rate 16, 99% on room air, CBC with WBC 13.9, hemoglobin 6.2, MCV 111, platelet 411 with no shift performed, BMP with sodium 135, glucose 141. In the ED type and cross being performed per ED physician with plan for blood transfusion. [facility] Medical History Diverticulosis Elevated LDH History of stress test Home Medications NK 12/20/17 [History Last Taken Unknown] Allergy/AdvReac Type Severity Reaction Status Date / Time No Known Allergies Allergy Verified 06/21/21 13:26 Family History Brother Cancer Hypertension Mother Hypertension Diabetes Surgical History H/O hernia repair History of cholecystectomy Social History (Updated 06/21/21 @ 17:[address] Libertad Ortiz MD) household members: spouse Smoking Status: Former smoker alcohol intake: never substance use type: does not use ROS ROS Narrative Admission Review of Systems: CONSTITUTIONAL: No weight loss, fever, chills, + weakness or fatigue. HEENT: Eyes: No visual loss, blurred vision, double vision or yellow sclerae. Ears, Nose, Throat: No hearing loss, sneezing, congestion, runny nose or sore throat. SKIN: No rash or itching, lesions, wounds. CARDIOVASCULAR: + LH, dizziness, near syncopal sensation recurrent. No chest pain, chest pressure or chest discomfort, palpitations, edema, orthopnea. RESPIRATORY: + shortness of breath, No cough or sputum, wheezing, hemoptysis. GASTROINTESTINAL: + Abdominal cramping. No anorexia, nausea, vomiting or diarrhea, melena, BRBPR. GENITOURINARY: + Appearance hematuria. No dysuria, frequency, urgency or retention. NEUROLOGICAL: + LH, Dizziness, near syncope sensation. No headache, paralysis, ataxia, numbness or tingling in the extremities, focal weakness, change in bowel or bladder control, seizure. MUSCULOSKELETAL: No muscle, back pain, joint pain or stiffness. HEMATOLOGIC:+ anemia, bleeding or bruising. LYMPHATICS: No enlarged nodes. No history of splenectomy. PSYCHIATRIC: No history of depression or anxiety. ENDOCRINOLOGIC: No reports of sweating, cold or heat intolerance. No polyuria or polydipsia. ALLERGIES: No history of asthma, hives, eczema or rhinitis. Weight Weight: 215 lb Body Mass Index (BMI) 31.7 Physical Exam Narrative Physical Examination: General: Awake, alert, oriented x 3 and cooperative, laying in the ED bed, pale in appearance, no acute distress. Skin: + Pale color, normal turgor, no icterus, no cyanosis. HEENT: AT/NC, EOMI, PERRLA, MMM, no carotid bruits or JVD noted. Lungs: Mildly diminished, greater bases, appropriate effort, no rales, ronchi or wheezing. Heart: Regular rate and rhythm; no gallop, rub audible. Abdomen: Soft, obese, no obvious tenderness palpation, mildly distended, hyperactive bowel sounds, no obvious HSM. Extremities: No cyanosis, no clubbing, mild bilateral ankle nonpitting edema. Neurological: Patient awake, alert, oriented as noted, cognitive function intact; pupils equally reactive to light and accommodation, cranial nerves II-XII grossly normal, moving all 4 extremities, no focal deficits, strength moderately to severely global decrease secondary to symptoms with significant movement, positional changes. Psychiatric: Affect appears fatigued otherwise normal, no acute evidence of depressive or anxiety feelings. Results Lab / Micro Data Result Diagrams: 06/21/21 14:25 document embedded image 06/21/21 14:25 document embedded image Labs: Laboratory Results - last 24 hr 06/21/21 14:25: WBC 13.9 H, RBC 1.82 L, Hgb 6.2 L, Hct 20.2 L, MCV 111.0 H, MCH 34.1 H, MCHC 30.7 L, RDW Std Deviation 62.2 H, RDW Coeff of Antonio 15.6 H, Plt Count 411, MPV 10.0 06/21/21 14:25: Sodium 135 L, Potassium 4.1, Chloride 103, Carbon Dioxide 28.0, Anion Gap 4 L, BUN 16, Creatinine 0.78, Estim Creat Clear Calc 100.71, Est GFR (MDRD) Af Amer 131, Est GFR (MDRD) Non-Af 108, BUN/Creatinine Ratio 20.6 H, Glucose 141 H, Calcium 8.1 L Direct and indirect Harpal both negative. normal iron saturation Haptoglobin 246 Normal Corrected reticulocyte count 2.6% CRP and sed rate were markedly elevated Assessment & Plan Assessment/Plan (1) Anemia: QUALIFIERS: Anemia type: unspecified type Qualified Code(s): D64.9 - Anemia, unspecified PLAN: Consistent with anemia of chronic disease and recent GI bleeding. There is no evidence of active hemolysis or coagulopathy. He still has symptomatic anemia after 2 units of blood transfusion. His hemoglobin increased to 7.0 gm/dl this morning Iron study, vitamin B12 and folic acid were normal. Possible bleeding despite negative EGD and colonoscopy. Reticulocyte is elevated and WBC and platelet counts were normal. His bone marrow is functioning normally. -Check stool for Hemoccult -Type and cross 1 more unit of blood for transfusion today -Monitor CBC (2) Hyperbilirubinemia: PLAN: Serum LDH and bilirubin are improving compared to last week Unconjugated bilirubin elevation but normal LFT -Possible Gilbert disease (3) History of autoimmune disease: PLAN: Positive YAQUELIN, Ro antibody & elevated sed rate and CRP History of rash and myalgia. -Consult rheumatology or follow-up with PCP.
[2021-06-22] MEDS: Pantoprazole Sodium 20 MG Tablet PO ×2 (08:07→21:23)
[2021-06-22] MEDS: 0.9% Normal Saline 1,000 ML 100 ML IV ×2 (08:07→21:23)
--- NOTE | 2021-06-22 12:07 | CASEMGMT ---
Pt screened with [facility] Palliative Care Screening Tool due to readmission, pt did not meet criteria.
--- NOTE | 2021-06-22 14:21 | PN.HOSP_ITS ---
Subjective Subjective Patient reports he feeling much better now that he has been transfused. He is frustrated as he is not made any progress in ascertaining why he is having persistent anemia. He adamantly believes that he is not having any GI source of bleeding and is frustrated with Dr. Poole and would like a second opinion. Objective Data Objective Data Vital Signs: Vital Signs Temp Pulse Resp BP Pulse Ox 99.4 F H 91 16 127/71 H 99 06/22/21 14:14 06/22/21 14:14 06/22/21 14:14 06/22/21 14:14 06/22/21 14:14 Oxygen Delivery Method Room Air Weight: 98.1 kg Body Mass Index (BMI) 31.6 Intake & Output: Intake and Output for Last 24 Hours 06/20/21 06/21/21 06/22/21 23:59 23:59 23:59 Intake Total 500 / 500 2028.33 / 8.33 Output Total 300 / 300 750 / 750 Balance 200 / 200 1278.33 / 1278.33 Lab / Micro Data Result Diagrams: 06/22/21 06:15 06/22/21 06:15 Labs: Laboratory Results - last 24 hr 06/21/21 14:25: WBC 13.9 H, RBC 1.82 L, Hgb 6.2 L, Hct 20.2 L, MCV 111.0 H, MCH 34.1 H, MCHC 30.7 L, RDW Std Deviation 62.2 H, RDW Coeff of [place] 15.6 H, Plt Count 411, MPV 10.0, Diff Path Review February06/21/21 14:25: Sodium 135 L, Potassium 4.1, Chloride 103, Carbon Dioxide 28.0, Anion Gap 4 L, BUN 16, Creatinine 0.78, Estim Creat Clear Calc 100.71, Est GFR (MDRD) Af Amer 131, Est GFR (MDRD) Non-Af 108, BUN/Creatinine Ratio 20.6 H, Glucose 141 H, Calcium 8.1 L 06/21/21 14:25: Blood Type A POSITIVE, Antibody Screen NEGATIVE, Crossmatch See Detail 06/21/21 14:25: Hemoglobin A1c < 3.5 L 06/21/21 14:25: Crossmatch See Detail 06/21/21 14:50: Total Bilirubin 3.40 H, Direct Bilirubin 1.17 H, AST 31, ALT 49, Alkaline Phosphatase 69, Total Protein 6.7, Albumin 2.4 L, Globulin 4.3 H 06/21/21 16:00: Urine Color Yellow, Urine Clarity Clear, Urine pH 6.0, Ur Sp ecific [place] 1.010, Urine Protein 15 H, Urine Glucose (UA) Normal, Urine Ke tones Negative, Urine Occult Blood 10 H, Urine Nitrite Negative, Urine Bilirubin 1 H, Urine Urobilinogen 8 H, Ur Leukocyte Esterase 25 H, Urine RBC 0 SEEN, Urine WBC 0 SEEN, Ur Squamous Epith Cells 0 SEEN, Amorphous Sediment 1+, Urine Bacteria 1+, Urine Mucus 0 SEEN 06/21/21 16:16: Direct Antiglob Test NEG w/POLYSPECIFIC 06/21/21 16:16: PT 14.6, INR 1.2, APTT 33.0 06/21/21 22:35: Hgb 7.3 L, Hct 23.6 L 06/22/21 06:15: WBC 11.6 H, RBC 2.14 L, Hgb 7.0 L, Hct 22.4 L, MCV 104.7 H D, MCH 32.7 H, MCHC 31.3 L, RDW Std Deviation 71.7 H, RDW Coeff of Antonio 19.0 H, Plt Count 440, MPV 9.0, Immature Gran % (Auto) 0.900, Neut % (Auto) 75.6 H, Lymph % (Auto) 16.2 L, [place] % (Auto) 6.3, Eos % (Auto) 0.6, Baso % (Auto) 0.4, Absolute Neuts (auto) 8.8 H, Absolute Lymphs (auto) 1.88, Nucleated RBC % 0, Differential Comment SCANNED, Diff Path Review February foll, RBC Morphology N CHROM, Polychromasia 1+, Anisocytosis 1+, Macrocytosis 1+ 06/22/21 06:15: Sodium 135 L, Potassium 3.9, Chloride 107, Carbon Dioxide 24.0, Anion Gap 4 L, BUN 14, Creatinine 0.70, Estim Creat Clear Calc 112.22, Est GFR (MDRD) Af Amer 147, Est GFR (MDRD) Non-Af 121, BUN/Creatinine Ratio 19.9, Glucose 113 H, Calcium 7.9 L, Total Bilirubin 2.50 H, AST 21, ALT 41, Alkaline Phosphatase 62, Total Protein 6.0 L, Albumin 2.2 L, Globulin 3.8, Albumin/Globulin Ratio 0.6 L Micro: Microbiology 06/22/21 10:45 Stool Stool Occult Blood (TOMEKA) - Final 06/21/21 15:45 Interface Orders SARS-CoV-2 Antigen (Rapid) - Final Rhythm Strip Rhythm Strip: Sinus Rhythm Rate: 85 Ectopy: None Physical Exam Const alert, oriented x3, no apparent distress and average body habitus Constitutional Narrative: Overweight white male lying in bed, appears nontoxic and in no distress, at bedside Exam Limitations: no limitations Nutritional Appearance: overweight HEENT head/scalp atraumatic, moist oral mucous membranes and oropharynx normal HEENT Narrative: Mild buccal jaundice, dentures in place Head and Scalp: normocephalic Mouth: oral and palatal mucosa normal Eyes PERRL, EOMs intact bilaterally and conjunctivae normal Neck no lymphadenopathy, supple, no JVD and no carotid bruits Neck Narrative: Trachea midline no thyroid enlargement noted Resp normal respiratory effort, no retractions, no use of accessory muscles and clear to auscultation bilaterally Auscultation: Negative for crackles, rales, rhonchi or wheezes Cardio regular rate, regular rhythm, S1 normal heart sound, S2 normal heart sound, no murmurs, no rub, no gallops, no clicks and no JVD GI normal to inspection, nondistended, normoactive bowel sounds, soft to palpation, non-tender and non-distended Extremity no clubbing, cyanosis or edema Peripheral Pulses: Yes pulses 2+ throughout Skin no rashes or lesions noted, no wounds, skin turgor normal, no petechiae and no mottling Skin Narrative: Possible mild jaundice skin appears slightly darker Neuro oriented x3, CN's II-XII intact bilaterally, moves all extremities and no focal motor deficits Sensorium / Orientation: awake, alert, oriented to person, oriented to place and oriented to time Speech: speech normal Psych affect normal Assessment & Plan Assessment/Plan (1) Anemia: QUALIFIERS: Anemia type: unspecified type Qualified Code(s): D64.9 - Anemia, unspecified PLAN: Acute anemia -Patient with recurrent anemia -Status post transfusion of 2 units packed red blood cells--> 1 more units to be given today -Has had negative EGD and colonoscopy -Patient has also had negative guaiac stool x2 previously no signs of GI bleed at home -Urine this time has occult blood but no RBCs noted and is also positive for bilirubin and urobilinogen -Flow cytometry pending to help rule out PNH -Bone marrow biopsy pending to help rule out other pathologies -Patient still with hyperbilirubinemia that is predominantly indirect -Has had normal haptoglobins--> although was low normal with a haptoglobin of 30 in the reference range 29 while at [facility] -Markedly elevated reticulocytes -Iron studies are not consistent with iron deficiency -Serum ferritin is markedly elevated which I suspect may be related to his a utoimmune disease -CRP has been elevated -Dr. Poole has seen the patient but the family wishes not to see Dr. Poole again--> Dr. 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 -Patient will need follow-up with rheumatology as an outpatient -We will refer again to [facility] rheumatology group Low normal B12 -MMA was within normal limits Hyperbilirubinemia -Suspect related to what ever is going on with regards to his anemia -Work-up is in progress Rash -Resolved Obesity -Recommend weight loss -Complicates overall treatment, prognosis, and outcomes -BMI 31.9 Hiatal hernia status post Sonja fundoplication -No current issues DVT prophylaxis -SCDs CODE STATUS -Full code Family fully updated, patient's was at the bedside during my exam Charges/Coding Visit Charges Inpatient E&M: 55998 Subs Hosp L3
--- NOTE | 2021-06-22 14:28 | CHAPLAIN ---
Type of Pastoral Visit _x__ Initial Visit ___ Follow-up Visit ___ On-call Visit ___ General Patient Visit ___ Spiritual Assessment ___ Family Conference ___ Bereavement ___ Rapid Response ___ Code Blue ___ Other (describe below) Pastoral Care Referral From _x__ Patient ___ Family ___ Nurse ___ Physician ___ Fire Battalion Chief ___ Traffic Supervisor ___ Other (describe below) Sacrament/Intervention _x__ Active listening ___ Anointing ___ Amish ___ Bereavement ___ Communion ___ Fabienne exploration ___ _x__ Life review _x__ Prayer ___ Reconciliation ___ Sacrament of Sick _x__ Supportive presence ___ Wedding ___ Other (describe below) Pastoral Comments patient has good pastoral support from family members; pt goal is to find reason for his blood loss and to get back to work; spouse is with him in the room; pt welcomes prayer support and time to visit with this peoplesoft developer
--- NOTE | 2021-06-22 15:02 | CASEMGMT ---
Addendum entered by Lisa Hernández 06/22/21 15:07: Initial hgb correction- 6.2 Original Note: RN CM Readmission Note Previous Admission: 06/09/21-06/13/21 Diagnosis: acute symptomatic anemia associated with intractable abd pain DC Disposition: Home Current Admission Current diagnosis: anemia Pt presented to ER from 's office appt. Pt states he passed out while in the lab getting labs drawn. Per , they were able to come to the ER or be admitted today to bypass the ER. was adamant patient not come home. She expresses frustration of being in the ER or hospital 5 times since April. She states is to come in today. Pt would like to be transferred if there is no answer as to why he continues to be anemic. Pt initial hgb 6.1. Received 3 units of PRBC's. Pt states he was taking his ordered medication until Sunday when he stopped his protonix and steroids secondary to abdominal discomfort, muscle weakness and nose bleeds. DC PLAN: Anticipate home with family support.
[2021-06-22 15:51] LABS: Pathologist Review Reviewed
[2021-06-22] MEDS: Acetaminophen 325 MG Tablet 650 MG PO (16:13)
[2021-06-22 16:19] LABS: Pathologist Review Reviewed
--- NOTE | 2021-06-22 23:00 | PCS.PANDOC ---
PANDEMIC DOCUMENTATION INITIATED: Date: 05/30/2021 Time: 190
[2021-06-23] VITALS (10 sets, daily range): BP systolic 117–142; BP diastolic 63–83; PULSE 79–103; RESP 18–22; TEMP 37.1–37.6; O2SAT 94–99
[2021-06-23] MEDS: Acetaminophen 325 MG Tablet 650 MG PO (02:40)
[2021-06-23] MEDS: 0.9% Normal Saline 1,000 ML 100 ML IV (05:18)
[2021-06-23 05:36] LABS: Absolute Lymphocyte Count 1.79 X10^3/uL (0.83-4.51); Absolute Neutrophil Count 7.1 X10^3/uL (2.0-7.7); Basophil# 0.08 X10^3/uL; Basophil% 0.8 % (0-1); Eosinophil# 0.12 X10^3/uL; Eosinophils% 1.2 % (0-5); Hemoglobin 7.6 g/dL (13.0-16.5); Lymphocyte # 1.79 X10^3/ul (0.83-4.51); Mean Corp Hgb Conc 31.7 g/dL (32-36); Mean Corpuscular Hgb 32.9 pg (27.0-32.0); Mean Corpuscular Volume 103.9 fL (80-94); Mean Platelet Vol. 9.3 fl (6.2-12.0); Monocyte# 0.78 X10^3/uL; Monocyte% 7.9 % (0-10); NRBC Flagged by Analyzer 0 % (0-5); Neutrophil # 7.08 X10^3/uL (2.7-7.7); Neutrophil % 71.4 % (47-70); POSITIVE MORPHOLOGY YES; Platelet Count 429 K/mm3 (150-450); RBC Distribution Width CV 18.6 % (11.6-14.6); RBC Distribution Width SD 70.1 fl (35.1-43.9); Red Blood Count 2.31 M/mm3 (4.6-6.2); White Blood Count 9.9 K/mm3 (4.4-11.0)
[2021-06-23 05:38] LABS: Differential Indicated SCAN CRITERIA MET
[2021-06-23 06:11] LABS: ALB/GLOB Ratio 0.6 RATIO (0.9-2.4); AST(SGOT) 33 U/L (15-37); Alanine Aminotransfer ALT/SGPT 50 U/L (16-61); Albumin, Serum 2.2 g/dL (3.2-5.0); Alkaline Phosphatase 72 U/L (45-117); Anion Gap 6 (5-15); BUN 12 mg/dL (7-18); BUN/Creat Ratio 17.5 RATIO (10-20); Calcium,Total 7.8 mg/dL (8.5-10.1); Chloride 107 mmol/L (98-107); Creatinine, Serum 0.69 mg/dL (0.70-1.30); EST Glomerular Filtration Rate 125 mL/min (>60); Est Glom Filt Rate - Afr Amer 151 mL/min (>60); Estimated Creatinine Clearance 113.85 ml/min; Glucose 105 mg/dL (74-106); Potassium 3.8 mmol/L (3.5-5.1); Protein, Total 6.2 g/dL (6.4-8.2); Sodium Level 136 mmol/L (136-145)
[2021-06-23 06:29] LABS: Anisocytosis 2+
[2021-06-23] MEDS: Pantoprazole Sodium 20 MG Tablet PO ×2 (08:26→22:05)
--- NOTE | 2021-06-23 10:23 | PCM.PN.HOSP ---
Documented by User: Jessenia Galan NP, EDUCATION FINANCE PROCESSOR-C 06/23/21 10:49 Subjective Subjective Patient seen and examined. and daughter at bedside. Denies lightheadedness. States prior rashes resolved. Denies abdominal pain. Denies chest pain, shortness of breath. Objective Data Objective Data Vital Signs: Vital Signs Temp Pulse Resp BP Pulse Ox 98.8 F 81 22 H 123/63 H 96 06/23/21 08:59 06/23/21 08:59 06/23/21 08:59 06/23/21 08:59 06/23/21 08:59 Oxygen Delivery Method Room Air Weight: 216 lb 14.4 oz Body Mass Index (BMI) 31.6 Intake & Output: Intake and Output for Last 24 Hours 06/21/21 06/22/21 06/23/21 23:59 23:59 23:59 Intake Total 500 / 500 3016.66 / 3016.66 2181.67 / 2181.67 Output Total 300 / 300 750 / 750 600 / 600 Balance 200 / 200 2266.66 / 2266.66 1581.67 / 1581.67 Lab / Micro Data Result Diagrams: 06/23/21 05:14 06/23/21 05:14 Labs: Laboratory Results - last 24 hr 06/21/21 14:25: Diff Path Review Reviewed 06/21/21 14:25: Crossmatch See Detail 06/22/21 06:15: Diff Path Review Reviewed 06/23/21 05:14: WBC 9.9, RBC 2.31 L, Hgb 7.6 L, Hct 24.0 L, MCV 103.9 H, MCH 32.9 H, MCHC 31.7 L, RDW Std Deviation 70.1 H, RDW Coeff of Antonio 18.6 H, Plt Count 429, MPV 9.3, Immature Gran % (Auto) 0.700, Neut % (Auto) 71.4 H, Lymph % (Auto) 18.0 L, [place] % (Auto) 7.9, Eos % (Auto) 1.2, Baso % (Auto) 0.8, Absolute Neuts (auto) 7.1, Absolute Lymphs (auto) 1.79, Nucleated RBC % 0, Anisocytosis 2+ 06/23/21 05:14: Sodium 136, Potassium 3.8, Chloride 107, Carbon Dioxide 23.0, Anion Gap 6, BUN 12, Creatinine 0.69 L, Estim Creat Clear Calc 113.85, Est GFR (MDRD) Af Amer 151, Est GFR (MDRD) Non-Af 125, BUN/Creatinine Ratio 17.5, Glucose 105, Calcium 7.8 L, Total Bilirubin 2.50 H, AST 33, ALT 50, Alkaline Phosphatase 72, Total Protein 6.2 L, Albumin 2.2 L, Globulin 4.0, Albumin/Globulin Ratio 0.6 L Micro: Microbiology 06/22/21 10:45 Stool Stool Occult Blood (TOMEKA) - Final 06/21/21 15:45 Interface Orders SARS-CoV-2 Antigen (Rapid) - Final Rhythm Strip Rhythm Strip: Sinus Rhythm Rate: 85 Ectopy: None Physical Exam Const alert, oriented x3 and no apparent distress Orientation / Consciousness: awake, oriented to person, oriented to place and oriented to time HEENT normocephalic and moist oral mucous membranes Eyes PERRL, EOMs intact bilaterally and conjunctivae normal Neck no lymphadenopathy Resp normal respiratory effort and clear to auscultation bilaterally Cardio regular rate, regular rhythm and no murmurs Peripheral Pulses: pulses 2+ throughout GI normal to inspection, nondistended, normoactive bowel sounds, non-tender and non-distended Extremity normal to inspection Skin no rashes or lesions noted Lesions: no lesions Rashes: no rashes Trauma: no lacerations or abrasions Neuro CN's II-XII intact bilaterally, no focal motor deficits, no sensory deficits noted and deep tendon reflexes 2+ bilaterally Psych mental status grossly normal and affect normal Assessment & Plan Assessment/Plan (1) Anemia: QUALIFIERS: Anemia type: unspecified type Qualified Code(s): D64.9 - Anemia, unspecified PLAN: 1. Acute recurrent symptomatic anemia- Underwent EGD/colonoscopy 06/13/21, both of which were unremarkable. Negative stool for occult blood x2. Recent CT of abdomen at [facility] significant for acute mid mesenteric panniculitis versus possible lymphoma. Repeat CT 06/09/2021 without acute findings. Labs notable for hyperbilirubinemia. Iron studies unremarkable. Serum ferritin/CRP elevated. Flow cytometry pending. Bone marrow biopsy ordered. Patient previously discharged on prednisone pending further hematology evaluation. He stopped taking prednisone on 06/18/2021 due to GI upset and myalgias. Additional hematology consult pending. Trend CBC. Status post 3 units PRBC. Possible hemolytic anemia? Continue PPI for GI prophylaxis 2. Elevated YAQUELIN/SSA/Jamie IgG antibody-suspect autoimmune process. Will need referral to rheumatology as outpatient. 3. History of recent diverticulitis-did not complete prescribed treatment. No further issues, colonoscopy normal as noted above. 4. Recent shingles-resolved. 5. Obesity- encouraged diet and lifestyle modifications. DVT prophylaxis- SCDs This patient was seen by Jessenia Galan NP-C under the supervision of Dr. Canela. Documented by User: Dr. Katarzyna Canela DO 06/23/21 15:06 Subjective Subjective This patient was seen in conjunction with Jessenia Galan NP. The following is representation my independent history and exam. Please see below for any addendum the above. Patient reports he is feeling much better since his transfusion. He denies any abdominal pain and has had no recurrence of his rash. He is complaining of some left knee pain that has hindered his ambulation some as of recently. He is waiting to see hematology. Objective Data Lab / Micro Data Result Diagrams: 06/23/21 05:14 06/23/21 05:14 Physical Exam Const alert, oriented x3, no apparent distress and average body habitus Constitutional Narrative: Overweight white male lying in bed, appears nontoxic and in no distress, at bedside Orientation / Consciousness: awake, oriented to person, oriented to place and oriented to time Exam Limitations: no limitations Nutritional Appearance: overweight HEENT normocephalic, head/scalp atraumatic, moist oral mucous membranes and oropharynx normal HEENT Narrative: Dentures in place, no thrush Head and Scalp: normocephalic Resp normal respiratory effort, no retractions, no use of accessory muscles and clear to auscultation bilaterally Auscultation: Negative for crackles, rales, rhonchi or wheezes Cardio regular rate, regular rhythm, S1 normal heart sound, S2 normal heart sound, no murmurs, no rub, no gallops, no clicks and no JVD Peripheral Pulses: pulses 2+ throughout GI normal to inspection, nondistended, normoactive bowel sounds, soft to palpation, non-tender and non-distended Extremity normal to inspection and no clubbing, cyanosis or edema Extremity Narrative: Left knee with small effusion and tenderness at medial joint line Skin no rashes or lesions noted, no wounds, skin turgor normal, no petechiae and no mottling Skin Narrative: Possible mild jaundice skin appears slightly darker Lesions: no lesions Rashes: no rashes Trauma: no lacerations or abrasions Neuro oriented x3, moves all extremities, no focal motor deficits and deep tendon reflexes 2+ bilaterally Sensorium / Orientation: awake and alert Speech: speech normal Psych mental status grossly normal Assessment & Plan Assessment/Plan (1) Anemia: QUALIFIERS: Anemia type: unspecified type Qualified Code(s): D64.9 - Anemia, unspecified PLAN: Assessment: Acute anemia Elevated YAQUELIN/Elevated SSA/Ro IgG antibody Hyperbilirubinemia Left knee pain Rash Obesity Hiatal hernia status post Sonja fundoplication Plan: -Patient with recurrent anemia -Status post transfusion of 3 units packed red blood cells -Has had negative EGD and colonoscopy -Patient has also had negative guaiac stool x2 previously no signs of GI bleed at home -Urine this time has occult blood but no RBCs noted and is also positive for bilirubin and urobilinogen -Flow cytometry pending to help rule out PNH -Bone marrow biopsy pending to help rule out other pathologies--> to be performed tomorrow -Patient still with hyperbilirubinemia that is predominantly indirect -Has had normal haptoglobins--> although was low normal with a haptoglobin of 30 in the reference range [address] [facility] -Markedly elevated reticulocytes -Iron studies are not consistent with iron deficiency -Serum ferritin is markedly elevated which I suspect may be related to his autoimmune disease -CRP has been elevated -We will need follow-up with both hematology and rheumatology at discharge -Probable discharge tomorrow after bone marrow aspirate and biopsy is obtained Charges/Coding Visit Charges Inpatient E&M: 36591 Subs Hosp L2
--- NOTE | 2021-06-23 13:57 | ONC.CONSULT ---
Assessment & Plan Assessment/Plan (1) Anemia: Status: Acute Code(s): D64.9 - Anemia, unspecified Qualifiers: Anemia type: unspecified type Qualified Code(s): D64.9 - Anemia, unspecified Plan: Probably there is an element of Hemolysis as indirect Bilirubin is high. Pt was taking mineral supplements at home so cannot R/O poisoning with Lead or Copper. May also have bone marrow failure. Suggestion: Pt should have Bone marrow evaluation before discharge. Check Lead/Copper level, LDH level. HPI Consult Data Date of Service:: 06/24/21 PCP / Referring Provider: Dr. Kike Aguiar MD Attending: Dr. Katarzyna Canela DO Chief Complaint Chief Complaint: Asked to see Pt with Anemia. History of Present Illness History of Present Illness: 61y.o. man was admitted 06/09/21-06/13/21 with acute symptomatic anemia with associated intractable abdominal pain. Had EGD and c-scope which was negative, work-up showed elevated LDH, elevated bilirubin with normal haptoglobin. There was no evidence of immune mediated hemolysis, both direct and indirect Harpal were negative. He was suspected to have autoimmune disease with related rash, started steroids, initially IV transitioned to oral Prednisone on discharge. He stopped the Prednisone because he had abdominal pain, epistaxis. He was seen in the office by Dr. Poole on 06/21/2021 and sent to ER for Blood transfusion. Hgb was 7.3, Bilirubin 3.4, dir. bilirubin 1.17. He received PRBC transfusion. He is feeling better after the transfusion. Advanced Directives Power of Senior Clinical Data Manager: Yes Living Will: Yes [facility] Medical History (Updated 06/22/21 @ 08:[address] Brett Poole MD) Anemia Diverticulosis Elevated LDH History of autoimmune disease History of stress test Home Medications NK 12/20/17 [History Last Taken Unknown] Allergy/AdvReac Type Severity Reaction Status Date / Time No Known Allergies Allergy Verified 06/21/21 13:26 Family History Brother Cancer Hypertension Mother Hypertension Diabetes Surgical History H/O hernia repair History of cholecystectomy Social History (Updated 06/21/21 @ 17:[address] Libertad Ortiz MD) household members: spouse Smoking Status: Former smoker alcohol intake: never substance use type: does not use ROS Constitutional Constitutional: Denies chills, fatigue or fever(s) ENT HEENT: Denies dysphagia or hoarseness Cardiovascular Cardiovascular: Denies chest pain, clubbing or diaphoresis Respiratory/Chest Respiratory/Chest: Denies chest tightness, cough or dyspnea Gastrointestinal Gastrointestinal: Denies abdominal pain, anorexia or bloating Genitourinary Genitourinary: Reports dysuria; Denies change in urinary stream Musculoskeletal Musculoskeletal: Denies abnormal gait, back pain or extremity pain Integumentary Integumentary: Denies alopecia Neurologic Neurologic: Denies abnormal speech or behavior changes Psychiatric Psychiatric: Denies anxiety or depression Endocrine Endocrinology: Denies cold intolerance, flushing or heat intolerance Hematologic/Lymphatic Hematologic/Lymphatic: Denies easy bleeding, easy bruising or lymphadenopathy Physical Exam Const alert and oriented x3 Orientation / Consciousness: oriented to person HEENT normocephalic Mouth: dry mucous membranes Eyes PERRL Neck supple Lymph Lymphatic: no lymphadenopathy noted Chest inspection of chest normal Resp normal respiratory effort and clear to auscultation bilaterally Cardio regular rate, regular rhythm, S1 normal heart sound, S2 normal heart sound and no murmurs GI normal to inspection, nondistended, normoactive bowel sounds Bladder / Kidney Exam: no CVA tenderness Extremity normal to inspection and no clubbing, cyanosis or edema Skin no rashes or lesions noted Neuro CN's II-XII intact bilaterally, moves all extremities, no focal motor deficits and no sensory deficits noted Motor Exam: strength 5/5 throughout Psych mental status grossly normal Vital Signs Temperature 98.8 F 06/23/21 08:59 Temperature Source Oral 06/23/21 08:59 Pulse Rate 81 06/23/21 08:59 Respiratory Rate 22 H 06/23/21 08:59 Respiratory Effort Non-Labored 06/22/21 03:13 Respiratory Depth Normal 06/22/21 03:13 Respiratory Pattern Normal 06/22/21 03:13 Blood Pressure 123/63 H 06/23/21 08:59 Blood Pressure Mean 83 06/23/21 08:59 Blood Pressure Source Monitor 06/23/21 08:59 Blood Pressure Position Supine 06/23/21 08:59 Blood Pressure Location Left Arm 06/23/21 08:59 Pulse Ox 96 06/23/21 08:59 Oxygen Delivery Method Room Air 06/23/21 08:59 Laboratory Results - last 24 hr 06/21/21 14:25: Diff Path Review Reviewed 06/21/21 14:25: Crossmatch See Detail 06/22/21 06:15: Diff Path Review Reviewed 06/23/21 05:14: WBC 9.9, RBC 2.31 L, Hgb 7.6 L, Hct 24.0 L, MCV 103.9 H, MCH 32.9 H, MCHC 31.7 L, RDW Std Deviation 70.1 H, RDW Coeff of [place] 18.6 H, Plt Count 429, MPV 9.3, Immature Gran % (Auto) 0.700, Neut % (Auto) 71.4 H, Lymph % (Auto) 18.0 L, [place] % (Auto) 7.9, Eos % (Auto) 1.2, Baso % (Auto) 0.8, Absolute Neuts (auto) 7.1, Absolute Lymphs (auto) 1.79, Nucleated RBC % 0, Anisocytosis 2+ 06/23/21 05:14: Sodium 136, Potassium 3.8, Chloride 107, Carbon Dioxide 23.0, Anion Gap 6, BUN 12, Creatinine 0.69 L, Estim Creat Clear Calc 113.85, Est GFR (MDRD) Af Amer 151, Est GFR (MDRD) Non-Af 125, BUN/Creatinine Ratio 17.5, Glucose 105, Calcium 7.8 L, Total Bilirubin 2.50 H, AST 33, ALT 50, Alkaline Phosphatase 72, Total Protein 6.2 L, Albumin 2.2 L, Globulin 4.0, Albumin/Globulin Ratio 0.6 L Microbiology 06/22/21 10:45 Stool Stool Occult Blood (TOMEKA) - Final Charges/Coding Visit Charges Office Visits / Consults: [id number] IP Consult L3
--- NOTE | 2021-06-23 16:15 | RAD_ITS ---
HISTORY: left knee pain COMPARISON: None FINDINGS: # of images incl. paperwork: 3 XR Knee 3 Views: SOFT TISSUES: No radiodense soft tissue foreign body. No abnormal soft tissue mineralization. OSSEOUS: No fracture. No osteochondral defect. No erosion or periostitis. JOINT: No dislocation. Small suprapatellar effusion. Complete medial compartment joint space narrowing. Moderate patellofemoral compartment joint space narrowing. Minimal tricompartmental osteophyte formation. BONE MINERALIZATION: Unremarkable. RAD/Knee 3 Views IMPRESSION: No acute osseous finding. 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 at 0103 Reported and signed by: Charles Larios MD Electronically Signed: Charles Larios MD at 1:02 EDT Tel , Service support ,
[2021-06-23] MEDS: 0.9% Saline Lock 10 ML Syringe IV ×2 (22:07→22:08)
[2021-06-24] VITALS (10 sets, daily range): BP systolic 105–128; BP diastolic 64–72; PULSE 81–96; RESP 18; TEMP 36.7–37; O2SAT 95–97
[2021-06-24 06:43] LABS: Absolute Lymphocyte Count 0.95 X10^3/uL (0.83-4.51); Absolute Neutrophil Count 7.6 X10^3/uL (2.0-7.7); Basophil% 1.1 % (0-1); Eosinophil# 0.07 X10^3/uL; Eosinophils% 0.7 % (0-5); Hematocrit 24.9 % (40-54); Hemoglobin 7.9 g/dL (13.0-16.5); Lymphocyte # 0.95 X10^3/ul (0.83-4.51); Mean Corp Hgb Conc 31.7 g/dL (32-36); Mean Corpuscular Hgb 33.1 pg (27.0-32.0); Mean Corpuscular Volume 104.2 fL (80-94); Mean Platelet Vol. 9.1 fl (6.2-12.0); Monocyte# 0.68 X10^3/uL; Monocyte% 7.2 % (0-10); NRBC Flagged by Analyzer 0 % (0-5); Neutrophil # 7.64 X10^3/uL (2.7-7.7); Neutrophil % 80.5 % (47-70); POSITIVE MORPHOLOGY YES; Platelet Count 489 K/mm3 (150-450); RBC Distribution Width CV 17.4 % (11.6-14.6); RBC Distribution Width SD 66.7 fl (35.1-43.9); Red Blood Count 2.39 M/mm3 (4.6-6.2); White Blood Count 9.5 K/mm3 (4.4-11.0)
[2021-06-24 06:49] LABS: Differential Indicated SCAN CRITERIA MET
[2021-06-24 06:59] LABS: Anisocytosis 1+; Differential Comment SCANNED
[2021-06-24 07:00] LABS: Macrocytosis 1+; Polychromasia RARE
[2021-06-24] MEDS: Pantoprazole Sodium 20 MG Tablet PO (10:35)
--- NOTE | 2021-06-24 10:53 | CASEMGMT ---
Received script for bone marrow aspiration by Jessenia Galan NP. TC to scheduling and scheduled procedure for Sunday at 10am. RN CM in to pt room to make aware of procedure, arrive at 9am and NPO after MN. Pt and verbalized understanding. will call to obtain a power screwdriver operator today for the procedure. Pt/ deny further needs.
--- NOTE | 2021-06-24 11:27 | DCINST_ITS ---
Discharge Instructions Diet Discharge Diet: No restrictions Activity Discharge Activity: Return to Normal Activity Dressing / Incision Call your doctor if you observe: Shortness of breath, Dizziness and Chest pain Follow Up Care Test Results: Test results from this visit will be discussed in further detail at your follow-up appointment, if applicable. Discharge Plan Admission Admit Date/Time: 06/21/21 15:52 Primary Reason for Your Visit: Anemia Attending Provider: Sudhakar Dhaliwal Primary Care Provider: Kike Aguiar Consulting Providers: Josiah Griffiths ; Ethan Mcclure ; Cedric Parada ; Vaughn Aguirre ; Hilario Ramos ; Miguelito Kam ; Leonardo Andre ; Kp Solano ; Rosa Patel TECHNOLOGY EDUCATION INSTRUCTOR Instructions Additional Instructions / Restrictions: Bone marrow biopsy and CBC scheduled for 06/27/2021. Results to be followed by Dr. Parada. Discharge Orders/Prescriptions Prescriptions: New pantoprazole 20 mg Tablet,Delayed Release (Dr/Ec) 20 mg PO BID Qty: 60 RF: 0 Other Ambulatory Orders: CBC W/Diff, Automated (Routine) Timeframe: 20210627 Facility: [facility] - Location: Laboratory Ordered By: Jessenia Galna NP Referrals / Follow Up: [facility], Digital Art Director [Other] - See Referral Note ([phone]. Call for follow-up in 1 to 2 weeks.) Cedric Parada MD [NON-STAFF] - Within 1 Week Kike Aguiar MD [Primary Care Provider] - In 1 Week Disposition Disposition (needs filled in before D/C Order can be placed): Home, Self Care
--- NOTE | 2021-06-24 11:45 | PCM.DC.SUM ---
Documented by User: Jessenia Galan NP, INSERTING PRESS OPERATOR-C 06/24/21 11:48 Providers Date of Admission: 06/21/21 Date of Discharge: 06/24/21 Primary Care Physician: Dr. Kike Aguiar MD Consultations 06/21/21 18:37 Consult: Oncology/Hematology Routine Consulting Provider: Josiah Griffiths Reason for Consult: Recurrent symptomatic anemia, planned 2 u PRBC, suspected hemolytic/autoimm EMERGENT Consult: No MD Notified: Yes Date Notified: 06/21/21 Time Notified: 15:46 Method of Notification: called 06/22/21 10:02 Consult: Oncology/Hematology Routine [facility]ing [facility] Reason for Consult: Second opinion regarding recurrent anemia EMERGENT Consult: No MD Notified: Yes Date Notified: 06/22/21 Time Notified: 11:59 Method of Notification: spoke with office Reason For Visit: SYMPTOMATIC ANEMIA, ACUTE ON CHRONIC ANEMIA Diagnosis Discharge Diagnosis (1) Anemia: Status: Acute Code(s): D64.9 - Anemia, unspecified Qualifiers: Anemia type: unspecified type Qualified Code(s): D64.9 - Anemia, unspecified Medications at Discharge Home Medications pantoprazole 20 mg PO BID #60 tab 06/24/21 Hospital Course Operations None Procedures Blood transfusion Summary of Care Provided Minutes Spent on Discharge: 35 Hospital Course: Patient is a 61-year-old male admitted 06/21/2021 due to recurrent anemia. 1. Acute recurrent symptomatic anemia- Underwent EGD/colonoscopy 06/13/21, both of which were unremarkable. Negative stool for occult blood x2. Recent CT of abdomen at [facility] significant for acute mid mesenteric panniculitis versus possible lymphoma. Repeat CT 06/09/2021 without acute findings. Labs notable for hyperbilirubinemia. Iron studies unremarkable. Serum ferritin/CRP elevated. Flow cytometry pending. Bone marrow biopsy scheduled as outpatient for 06/27/2021 CBC ordered at that time as well. Patient previously discharged on prednisone pending further hematology evaluation. He stopped taking prednisone on 06/18/2021 due to GI upset and myalgias. Additional hematology consult during admission. Status post units PRBC. Possible hemolytic anemia? Continue PPI for GI prophylaxis. Follow-up with hematology in 1 week. Hold off on further steroids at this time pending bone marrow biopsy results. 2. Elevated YAQUELIN/SSA/Jamie IgG antibody-suspect autoimmune process. Referred to [facility] for rheumatology evaluation as outpatient. 3. History of recent diverticulitis-did not complete prescribed treatment. No further issues, colonoscopy normal as noted above. 4. Recent shingles-resolved. 5. Obesity- encouraged diet and lifestyle modifications. Physical Exam Const alert, oriented x3 and no apparent distress Orientation / Consciousness: awake, oriented to person, oriented to place and oriented to time HEENT normocephalic and moist oral mucous membranes Eyes PERRL, EOMs intact bilaterally and conjunctivae normal Neck no lymphadenopathy Resp normal respiratory effort and clear to auscultation bilaterally Cardio regular rate, regular rhythm and no murmurs Peripheral Pulses: pulses 2+ throughout GI normal to inspection, nondistended, normoactive bowel sounds, non-tender and non-distended Extremity normal to inspection Skin no rashes or lesions noted Lesions: no lesions Rashes: no rashes Trauma: no lacerations or abrasions Neuro CN's II-XII intact bilaterally, no focal motor deficits, no sensory deficits noted and deep tendon reflexes 2+ bilaterally Psych mental status grossly normal and affect normal Patient seen and examined prior to discharge. Physical assessment as noted above. Patient is stable for discharge with follow up recommendations as noted above. This patient was seen by AMARI Graves under the supervision of Dr. Dhaliwal. Weight / BMI Weight Weight: 211 lb 3.245 oz Body Mass Index (BMI) 31.6 ABG / Lab / Microbiology Data Result Diagrams: 06/24/21 06:00 06/23/21 05:14 Laboratory: Laboratory Results - last 24 hr 06/21/21 14:25: Crossmatch See Detail 06/24/21 06:00: WBC 9.5, RBC 2.39 L, Hgb 7.9 L, Hct 24.9 L, MCV 104.2 H, MCH 33.1 H, MCHC 31.7 L, RDW Std Deviation 66.7 H, RDW Coeff of Antonio 17.4 H, Plt Count 489 H, MPV 9.1, Immature Gran % (Auto) 0.500, Neut % (Auto) 80.5 H, Lymph % (Auto) 10.0 L, [place] % (Auto) 7.2, Eos % (Auto) 0.7, Baso % (Auto) 1.1 H, Absolute Neuts (auto) 7.6, Absolute Lymphs (auto) 0.95, Nucleated RBC % 0, Differential Comment SCANNED, Polychromasia RARE, Anisocytosis 1+, Macrocytosis 1+ Microbiology: Microbiology 06/22/21 10:45 Stool Stool Occult Blood (TOMEKA) - Final 06/21/21 15:45 Interface Orders SARS-CoV-2 Antigen (Rapid) - Final Radiography Diagnostic Testing: Radiology Impression Knee X-Ray 06/23/21 16:15 IMPRESSION: No acute osseous finding. 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 at 0103 Reported and signed by: Charles Larios MD Electronically Signed: Charles Larios MD at 1:02 EDT Tel , Service support , D/C Instructions Discharge Diet: No restrictions Call your doctor if you observe: Shortness of breath, Dizziness and Chest pain Meaningful Use Info Meaningful Use Diagnoses (Choose all that apply): None applicable Discharge Plan Admission Admit Date/Time: 06/21/21 15:52 Primary Reason for Your Visit: Anemia Attending Provider: Sudhakar Dhaliwal Primary Care Provider: Kike Aguiar Consulting Providers: Josiah Griffiths ; Ethan Mcclure ; Cedric Parada ; Vaughn Aguirre ; Hilario Ramos ; Miguelito Kam ; Leonardo Andre ; Kp Solano ; Rosa Patel INSERTING PRESS OPERATOR Instructions Additional Instructions / Restrictions: Bone marrow biopsy and CBC scheduled for 06/27/2021. Results to be followed by Dr. Parada. Discharge Orders/Prescriptions Prescriptions: New pantoprazole 20 mg Tablet,Delayed Release (Dr/Ec) 20 mg PO BID Qty: 60 RF: 0 Other Ambulatory Orders: CBC W/Diff, Automated (Routine) Timeframe: [id number] Facility: [facility] - Location: Laboratory Ordered By: Jessenia Galan NP Referrals / Follow Up: [facility], Clinical Information Systems Director [Other] - See Referral Note ([phone]. Call for follow-up in 1 to 2 weeks.) Cedric Parada MD [NON-STAFF] - Within 1 Week Kike Aguiar MD [Primary Care Provider] - In 1 Week Disposition Disposition (needs filled in before D/C Order can be placed): Home, Self Care Documented by User: Dr. Sudhakar Dhaliwal DO 06/24/21 21:05 Providers Date of Admission: 06/21/21 Reason For Visit: SYMPTOMATIC ANEMIA, ACUTE ON CHRONIC ANEMIA Medications at Discharge Home Medications pantoprazole 20 mg PO BID #60 tab 06/24/21 ABG / Lab / Microbiology Data Result Diagrams: 06/24/21 06:00 06/23/21 05:14 Discharge Plan Admission Admit Date/Time: 06/21/21 15:52 Primary Reason for Your Visit: Anemia Attending Provider: Sudhakar Dhaliwal Primary Care Provider: Kike Aguiar Consulting Providers: Josiah Griffiths ; Ethan Mcclure ; Cedric Parada ; Vaughn Aguirre ; Hilario Ramos ; Miguelito Kam ; Leonardo Andre ; Kp Solano ; Rosa Patel INSERTING PRESS OPERATOR Instructions Additional Instructions / Restrictions: Bone marrow biopsy and CBC scheduled for 06/27/2021. Results to be followed by Dr. Parada. Discharge Orders/Prescriptions Prescriptions: New pantoprazole 20 mg Tablet,Delayed Release (Dr/Ec) 20 mg PO BID Qty: 60 RF: 0 Other Ambulatory Orders: CBC W/Diff, Automated (Routine) Timeframe: [id number] Facility: [facility] - Location: Laboratory Ordered By: Jessenia Galan NP Referrals / Follow Up: [facility], Clinical Information Systems Director [Other] - See Referral Note ([phone]. Call for follow-up in 1 to 2 weeks.) Cedric Parada MD [NON-STAFF] - Within 1 Week Kike Aguiar MD [Primary Care Provider] - In 1 Week Disposition Disposition (needs filled in before D/C Order can be placed): Home, Self Care Charges/Coding Addendum Addendum: Patient was seen and examined independently of Jessenia Galan today, radiology was unable to perform a bone marrow biopsy today due to scheduling concerns, it will not be performed until Sunday, I contacted oncology and they were okay with the patient being discharged home for follow-up as an outpatient. We provided a prescription for the patient to have a bone marrow biopsy done this Sunday. Patient was given 1 more unit of packed red blood cells before discharge today On examination he appeared in good health and spirits. Vital signs as documented. Skin warm and dry and without overt rashes. Neck without JVD, neck was supple, trachea midline, thyroid was normal. Lungs clear bilaterally, normal air movement was noted. Heart exam notable for regular rhythm, normal sounds and absence of murmurs, rubs or gallops. Abdomen unremarkable and without evidence of organomegaly, masses, or abdominal aortic enlargement. Bowel sounds are present, abdomen is not distended. Extremities nonedematous, no cyanosis was noted, no clubbing was noted. Neuro: Cranial nerves II through XII are grossly intact, no focal motor deficits were noted, sensation to light touch and pinprick intact, motor exam 5/5 throughout. Psych: Patient is alert and oriented x3, he does not appear anxious or depressed, he does not appear agitated. I have reviewed Jessenia Galan's discharge summary including her medical assessment and plan of care and endorse it. Visit Charges Inpatient E&M: 35007 Disch Hosp
== END 2021-06-24 15:23 | disposition home or self-care (01) | DRG 546 ==
LOC: ED 15:46 → MS3 16:42
PROVIDERS: Internal Medicine; Nurse Practitioner Family; Admitting Provider Family Medicine; Emergency Provider Emergency Medicine; PCP Family Medicine; Visit Provider Internal Medicine
DX: M35.9 Systemic involvement of connective tissue, unspecified (principal); D59.10 Autoimmune hemolytic anemia, unspecified; E66.9 Obesity, unspecified; M25.562 Pain in left knee; Z68.31 Body mass index [BMI] 31.0-31.9, adult; I10 Essential (primary) hypertension; R73.9 Hyperglycemia, unspecified; Z87.19 Personal history of other diseases of the digestive system; Z87.891 Personal history of nicotine dependence; Z86.19 Personal history of other infectious and parasitic diseases
CPT/HCPCS: 36415; 73562; 80048; 80053; 80076; 81001; 82274; 83036; 85014; 85018; 85025; 85027; 85610; 85730; 86850; 86880; 86900; 86901; 86920; 86922; 87426; 93005; 97802; 99251; 99285; J7030; J7040; P9016; A4216; G0463

== ENCOUNTER 2021-06-26 19:29 | Emergency (ER) | payer OTHER, SELFPAY ==
[2021-06-26 19:29] VITALS: BP 117/77; PULSE 92; RESP 16; TEMP 36.3; O2SAT 100; BMI 31.3
[2021-06-26 20:56] LABS: Absolute Lymphocyte Count 1.44 X10^3/uL (0.83-4.51); Absolute Neutrophil Count 6.8 X10^3/uL (2.0-7.7); Basophil# 0.06 X10^3/uL; Basophil% 0.7 % (0-1); Eosinophil# 0.18 X10^3/uL; Hematocrit 25.5 % (40-54); Lymphocyte # 1.44 X10^3/ul (0.83-4.51); Lymphocyte % 15.7 % (19-41); Mean Corp Hgb Conc 31.4 g/dL (32-36); Mean Corpuscular Hgb 32.1 pg (27.0-32.0); Mean Corpuscular Volume 102.4 fL (80-94); Mean Platelet Vol. 9.1 fl (6.2-12.0); Monocyte# 0.66 X10^3/uL; Monocyte% 7.2 % (0-10); NRBC Flagged by Analyzer 0 % (0-5); Neutrophil # 6.78 X10^3/uL (2.7-7.7); Platelet Count 573 K/mm3 (150-450); RBC Distribution Width CV 15.7 % (11.6-14.6); RBC Distribution Width SD 58.4 fl (35.1-43.9); Red Blood Count 2.49 M/mm3 (4.6-6.2); White Blood Count 9.2 K/mm3 (4.4-11.0)
--- NOTE | 2021-06-26 21:14 | EDS_ITS ---
HPI History of Present Illness Chief Complaint: Weakness Informant: patient and family Narrative Narrative: Patient presents with concern for worsening anemia. He states his energy level is just very low. This started back about a month and a half ago. He was feeling decreased energy for about 2 weeks. He was admitted to [facility] for a few days. He was transfused 2 units of blood for hemoglobin in the low sixes. No blood in the stool. They were going to do further testing but he stabilized and they discharged him home for follow-up. About 10 days or 2 weeks later he was admitted here. He ended up having low hemoglobin in the sixes again. He got 2 more units transfused. He has had both upper and lower endoscopies. He was told he has no sign of bleeding tumors or any cause of his blood loss. He was in the hospital from about Sunday to Sunday here recently. They were going to do a marrow aspiration but could not do that until the weekend was over. I found out he does have the marrow scheduled for tomorrow. He chose to go home since he felt okay. He is still feeling weak and wants to make sure his hemoglobins are not dropping again. It is not really worsening.. He is not having chest pain or trouble breathing. No fevers or chills. He has never seen black or blood in his stool. No blood in the urine. No bruising.. Nothing makes his symptoms specifically worse. Transfusions do help. While he was in the hospital last time, it was discussed possible transfer to [facility]. They would support that. I explained that I am happy to call but it might be very difficult to get him in during this pandemic. Their weight times have oftentimes been in excess of 1 week. Of note, patient was treated for diverticulitis prior to all this starting. He was on Cipro and Flagyl. But he states that his colonoscopy showed no sign of diverticula. He also recently had shingles although that is essentially resolved. [facility] Medical History Anemia Diverticulosis Elevated LDH History of autoimmune disease History of stress test Home Medications pantoprazole 20 mg PO BID #60 tab 06/24/21 [Rx Last Taken Unknown] Allergy/AdvReac Type Severity Reaction Status Date / Time No Known Allergies Allergy Verified 06/26/21 19:31 Family History Brother Cancer Hypertension Mother Hypertension Diabetes Surgical History H/O hernia repair History of cholecystectomy Social History household members: spouse Smoking Status: Former smoker alcohol intake: never substance use type: does not use ROS ROS ED Constitutional Constitutional ED: Denies chills or fever(s) ENT ENT ED: Denies rhinorrhea or sore throat Cardiovascular Cardiovascular: Denies chest pain, palpitations or racing heartbeat Respiratory/Chest Respiratory/Chest: Denies cough or dyspnea Gastrointestinal Gastrointestinal: Denies abdominal pain, diarrhea, melena, nausea or vomiting Genitourinary Genitourinary ED: Denies hematuria Musculoskeletal Musculoskeletal: Denies arthralgias or myalgias Integumentary Denies rash Neurologic Neurologic: Denies headache(s) Endocrine Endocrinology: Denies polydipsia or polyuria Allergic/Immunologic Allergic/Immunologic ED: Denies urticaria EXAM Physical Exam Const Vital Signs: 06/26/21 19:29 Temperature 97.4 F L Temperature Source Temporal Pulse Rate 92 Respiratory Rate 16 Blood Pressure 117/77 Blood Pressure Mean 90 Pulse Ox 100 Oxygen Delivery Method Room Air Positive well nourished and well developed Constitutional Narrative: Patient is comfortable sitting in bed. He may have some very subtle pallor. General Appearance ED: well developed and NAD HEENT Negative for trauma or tenderness Eyes PERRL and EOMs intact bilaterally Eyes Narrative: Very slight icterus. This might be secondary to multiple transfusions recently to. General Eye ED: Yes scleral icterus Neck supple and no JVD Chest Wall palpation of chest normal Resp normal respiratory effort and clear to auscultation bilaterally Auscultation: Negative for rales, rhonchi or wheezes Cardio regular rate, regular rhythm and no murmurs GI normal to inspection, nondistended, normoactive bowel sounds and non-tender Palpation: soft Back/Spine no CVA tenderness General Back: Negative for CVA tenderness Extremity normal to inspection Neuro oriented x3 Sensorium / Orientation: alert Psych mental status grossly normal Skin Skin Narrative: Healing shingles at the lower right chest wall. No secondary infection. MDM MDM MDM Narrative Medical decision making narrative: Patient's hemoglobin is actually stable or slightly higher than discharge. His bilirubin is coming down. I talked with him and his family about options. They are comfortable going home. He really does not need a transfusion at this time. His blood pressure heart rate is good . He has marrow biopsy tomorrow. He did request some copies of his labs. They may try to go to [facility] which was an option before. I explained that he should still try to get the marrow biopsy done tomorrow because it is apparently already scheduled. He should return if he gets more lightheaded dizziness passing out or other concerning symptoms. Lab Data Attestation: I reviewed the patient's lab results. Labs: Laboratory Results - last 24 hr 06/26/21 06/26/21 20:47 20:47 WBC 9.2 RBC 2.49 L Hgb 8.0 L Hct 25.5 L MCV 102.4 H MCH 32.1 H MCHC 31.4 L RDW Std Deviation 58.4 H RDW Coeff of Antonio 15.7 H Plt Count 573 H MPV 9.1 Immature Gran % (Auto) 0.400 Neut % (Auto) 74.0 H Lymph % (Auto) 15.7 L [place] % (Auto) 7.2 Eos % (Auto) 2.0 Baso % (Auto) 0.7 Absolute Neuts (auto) 6.8 Absolute Lymphs (auto) 1.44 Nucleated RBC % 0 Sodium 137 Potassium 3.8 Chloride 103 Carbon Dioxide 25.0 Anion Gap 9 BUN 17 Creatinine 0.73 Estim Creat Clear Calc 107.61 Est GFR (MDRD) Af Amer 142 Est GFR (MDRD) Non-Af 117 BUN/Creatinine Ratio 23.4 H Glucose 121 H Calcium 8.2 L Total Bilirubin 1.80 H AST 58 H ALT 78 H Alkaline Phosphatase 101 Total Protein 7.1 Albumin 2.3 L Globulin 4.8 H Albumin/Globulin Ratio 0.5 L Discharge Plan Triage Chief Complaint: Weakness ED Provider: Jim Wasserman Dx/Rx/DC Orders Clinical Impression: Anemia Instructions: Anemia Prescriptions: No Action pantoprazole 20 mg Tablet,Delayed Release (Dr/Ec) 20 mg PO BID Qty: 60 RF: 0 Primary Care Provider: Kike Aguiar Referrals: Kike Aguiar MD [Primary Care Provider] - As soon as possible Activity Restrictions/Additional Instructions: Follow-up tomorrow for marrow biopsy. Disposition Disposition: Home, Self Care
[2021-06-26 21:17] LABS: ALB/GLOB Ratio 0.5 RATIO (0.9-2.4); AST(SGOT) 58 U/L (15-37); Alanine Aminotransfer ALT/SGPT 78 U/L (16-61); Albumin, Serum 2.3 g/dL (3.2-5.0); Alkaline Phosphatase 101 U/L (45-117); Anion Gap 9 (5-15); BUN 17 mg/dL (7-18); BUN/Creat Ratio 23.4 RATIO (10-20); Calcium,Total 8.2 mg/dL (8.5-10.1); Chloride 103 mmol/L (98-107); Creatinine, Serum 0.73 mg/dL (0.70-1.30); EST Glomerular Filtration Rate 117 mL/min (>60); Est Glom Filt Rate - Afr Amer 142 mL/min (>60); Estimated Creatinine Clearance 107.61 ml/min; Globulin 4.8 g/dL (2.2-4.2); Glucose 121 mg/dL (74-106); Potassium 3.8 mmol/L (3.5-5.1); Protein, Total 7.1 g/dL (6.4-8.2); Sodium Level 137 mmol/L (136-145)
[2021-06-26 22:57] VITALS: BP 124/66; PULSE 85; RESP 16; RESP 18; O2SAT 99
== END 2021-06-26 22:58 | disposition home or self-care (01) ==
PROVIDERS: Emergency Provider Emergency Medicine; PCP Family Medicine
DX: D64.9 Anemia, unspecified (principal); Z87.891 Personal history of nicotine dependence
CPT/HCPCS: 80053; 85025; 99283; A4216